=== PATIENT | male | born 1935 | race African-American/Black ===

== ENCOUNTER → 2017-11-05 | Outpatient (CLI) | payer MEDICARE, MEDICAID ==
--- NOTE | 2017-11-05 15:48 | RADIOLOGY REPORT (SQ) ---
EXAM DESCRIPTION: MRI HEAD WITHOUT COMPLETED DATE/TIME: 11/05/2017 2:26 pm REASON FOR STUDY: R41.1 ANTEROGRADE AMNESIA N18.3 CHRONIC KIDNEY DISEASE, STAGE 3 (MODERATE) R41.1 ANTEROGRADE AMNESIA N18.3 CHRONIC KIDNEY DISEASE, STAGE 3 (MODERATE) COMPARISON: 2013 TECHNIQUE: Multiplanar imaging includes non-contrasted T1, T2, FLAIR, and diffusion with ADC map seq uences. Heme sensitive sequence. Images stored on PACS. LIMITATIONS: None. FINDINGS: ANATOMY: No anomalies. Normal vascular flow voids. Pituitary fossa normal. CSF SPACES: Atrophy induced prominence of ventricles and CSF spaces. CEREBRUM: High signal intensity lesions scattered throughout the white matter on FLAIR imaging with d istribution suggesting micro-vascular ischemic changes. No evidence of hemorrhage, mass, or extraaxi al fluid collection. Chronic left temporal arachnoid cyst. POSTERIOR FOSSA: No signal alteration. No hemorrhage. No edema, masses or mass effect. Internal davin tory canals, cerebello-pontine angles, mastoids normal. DIFFUSION IMAGING: Negative for acute or sub-acute infarction. ORBITS: No masses. Globes normal. PARANASAL SINUSES: No fluid levels. Mucosa normal. OTHER: No other significant finding. IMPRESSION: ATROPHY AND CHRONIC MICRO-VASCULAR ISCHEMIC CHANGES. Chronic left temporal arachnoid cy sts stable. OTHERWISE NORMAL MRI OF THE BRAIN WITHOUT INTRAVENOUS GADOLINIUM CONTRAST. EVIDENCE OF ACUTE STROKE: NO. TECHNICAL DOCUMENTATION: JOB ID: [id number]- All Rights Reserved Reading location - IP/workstation name: [email or web address]
--- NOTE | 2017-11-05 15:55 | RADIOLOGY REPORT (SQ) ---
EXAM DESCRIPTION: U/S RETROPERITON (RENAL/AORTA) COMPLETED DATE/TIME: 11/05/2017 2:52 pm REASON FOR STUDY: R41.1 ANTEROGRADE AMNESIA N18.3 CHRONIC KIDNEY DISEASE, STAGE 3 (MODERATE) R41.1 ANTEROGRADE AMNESIA N18.3 CHRONIC KIDNEY DISEASE, STAGE 3 (MODERATE) COMPARISON: None. TECHNIQUE: Dynamic and static grayscale images acquired of the kidneys and bladder and recorded on P ACS. Additional selected color Doppler and spectral images recorded. LIMITATIONS: None. FINDINGS: RIGHT KIDNEY: 7 cm in length with normal cortical thickness and echogenicity. No solid or suspicious masses. No hydronephrosis. No calcifications. LEFT KIDNEY: 8.4 cm in length with normal cortical thickness and echogenicity. No solid or suspiciou s masses. No hydronephrosis. No calcifications. BLADDER: No masses. OTHER FINDINGS: No other significant finding. IMPRESSION: No hydronephrosis TECHNICAL DOCUMENTATION: JOB ID: [id number] [employer] All Rights Reserved Reading location - IP/workstation name: [email or web address]
== END ==
LOC: RAD 14:34
PROVIDERS: ATTEND Internal Medicine
DX: G31.9 Degenerative disease of nervous system, unspecified (principal); G93.0 Cerebral cysts; R41.1 Anterograde amnesia; N18.3 Chronic kidney disease, stage 3 (moderate)
CPT/HCPCS: 70551; 76770

== ENCOUNTER 2018-01-13 12:23 | Inpatient (IN) | payer MEDICARE, MEDICAID ==
[2018-01-13 13:09] LABS: INTERNATIONAL RATION (INR) 0.96; PROTHROMBIN TIME 13.3 SEC (11.4-15.4)
[2018-01-13 13:10] LABS: ABSOLUTE EOSINOPHILS # (AUTO) 0.2 10^3/uL (0.0-0.6); ABSOLUTE LYMPHOCYTES (AUTO) 2.1 10^3/uL (0.5-4.7); ABSOLUTE MONOCYTES (AUTO) 0.8 10^3/uL (0.1-1.4); ABSOLUTE NEUT (AUTO) 3.5 10^3/uL (1.7-8.2); BASOPHILS % (AUTO) 0.7 % (0-2); EOSINOPHILS % (AUTO) 2.7 % (0-6); HEMATOCRIT 40.1 % (37.9-51.0); HEMOGLOBIN 13.1 g/dL (13.5-17.0); LYMPHOCYTES % (AUTO) 31.2 % (13-45); MEAN CORPUSCULAR HEMOGLOBIN 23.9 pg (27.0-33.4); MEAN CORPUSCULAR HGB CONC 32.5 g/dL (32.0-36.0); MEAN CORPUSCULAR VOLUME 74 fl (80-97); MONOCYTES % (AUTO) 11.9 % (3-13); PARTIAL THROMBOPLASTIN TIME 35.5 SEC (23.5-35.8); PLATELET COUNT 219 10^3/uL (150-450); RED BLOOD COUNT 5.46 10^6/uL (4.35-5.55); RED CELL DISTRIBUTION WIDTH 14.3 % (11.5-14.0); SEGMENTED NEUTROPHILS % (AUTO) 53.5 % (42-78); TOTAL CELLS COUNTED % (AUTO) 100 %; WHITE BLOOD COUNT 6.6 10^3/uL (4.0-10.5)
[2018-01-13 13:31] LABS: ALANINE AMINOTRANSFERASE 15 U/L (21-72); ALBUMIN 4.2 g/dL (3.5-5.0); ALKALINE PHOSPHATASE 80 U/L (38-126); ANION GAP 14 (5-19); ASPARTATE AMINO TRANSFERASE 33 U/L (17-59); BILIRUBIN,DIRECT 0.2 mg/dL (0.0-0.4); BILIRUBIN,TOTAL 0.4 mg/dL (0.2-1.3); BLOOD UREA NITROGEN 23 mg/dL (7-20); CALCIUM 9.8 mg/dL (8.4-10.2); CARBON DIOXIDE 30 mmol/L (22-30); CHLORIDE 95 mmol/L (98-107); CREATINE KINASE 42 U/L (55-170); GLUCOSE 105 mg/dL (75-110); POTASSIUM 4.1 mmol/L (3.6-5.0); SODIUM 138.6 mmol/L (137-145); TOTAL PROTEIN 8.5 g/dL (6.3-8.2)
--- NOTE | 2018-01-13 13:33 | RADIOLOGY REPORT (SQ) ---
EXAM DESCRIPTION: CHEST SINGLE VIEW COMPLETED DATE/TIME: 01/13/2018 1:16 pm REASON FOR STUDY: stroke s/s COMPARISON: 03/21/2013 EXAM PARAMETERS: NUMBER OF VIEWS: One view. TECHNIQUE: Single frontal radiographic view of the chest acquired. RADIATION DOSE: NA LIMITATIONS: None. FINDINGS: LUNGS AND PLEURA: No opacities, masses or pneumothorax. No pleural effusion. MEDIASTINUM AND HILAR STRUCTURES: No masses. Contour normal. HEART AND VASCULAR STRUCTURES: Heart normal in size. Normal vasculature. BONES: No acute findings. HARDWARE: None in the chest. OTHER: No other significant finding. IMPRESSION: NO ACUTE RADIOGRAPHIC FINDING IN THE CHEST. TECHNICAL DOCUMENTATION: JOB ID: [id number] [employer] All Rights Reserved Reading location - IP/workstation name: [email or web address]
--- NOTE | 2018-01-13 13:39 | RADIOLOGY REPORT (SQ) ---
EXAM DESCRIPTION: CT HEAD WITHOUT COMPLETED DATE/TIME: 01/13/2018 1:26 pm REASON FOR STUDY: stroke s/s COMPARISON: MR 11/05/2017 TECHNIQUE: Axial images acquired through the brain without intravenous contrast. Images reviewed wi th bone, brain and subdural windows. Additional sagittal and coronal reconstructions were generated. Images stored on PACS. All CT scanners at this facility use dose modulation, iterative reconstruction, and/or weight based d osing when appropriate to reduce radiation dose to as low as reasonably achievable (ALARA). [facility]: Dose Right [facility]: CareDose [facility]: Dose Right [facility]: Teradose 4D [facility]: Smart [employer] RADIATION DOSE: CT Rad equipment meets quality standard of care and radiation dose reduction techniq ues were employed. CTDIvol: 48.7 mGy. DLP: 1054 mGy-cm. mGy. LIMITATIONS: None. FINDINGS: VENTRICLES: Prominent ventricles secondary to involutional atrophy. CEREBRUM: No masses. No hemorrhage. No midline shift. No evidence for acute infarction. Small doris chnoid cyst in the left middle cranial fossa. Few scattered areas of low density in the white matter most likely chronic small vessel ischemic changes. CEREBELLUM: No masses. No hemorrhage. No alteration of density. No evidence for acute infarction. EXTRAAXIAL SPACES: No fluid collections. No masses. ORBITS AND GLOBE: No intra- or extraconal masses. Normal contour of globe without masses. CALVARIUM: Craniotomy changes on the right. PARANASAL SINUSES: No fluid or mucosal thickening. SOFT TISSUES: No mass or hematoma. OTHER: No other significant finding. IMPRESSION: Involutional changes of aging with chronic microvascular ischemia. Subarachnoid cyst in the left middle cranial fossa is unchanged. No acute intracranial imaging findings. EVIDENCE OF ACUTE STROKE: NO. COMMENT: Quality ID # 436: Final reports with documentation of one or more dose reduction techniques (e.g., Automated exposure control, adjustment of the mA and/or kV according to patient size, use of iterative reconstruction technique) TECHNICAL DOCUMENTATION: JOB ID: [id number] [employer]- All Rights Reserved Reading location - IP/workstation name: [email or web address]
[2018-01-13 13:44] LABS: CREATINE KINASE MB 0.35 ng/mL (<4.55); TROPONIN I 0.022 ng/mL
--- NOTE | 2018-01-13 13:57 | ER Document Report ---
ED General - General Chief Complaint: Altered Mental Status Stated Complaint: ALTERED MENTAL STATUS Time Seen by Provider: 01/13/18 13:06 Notes: 82-year-old male to the emergency department for evaluation of altered mental status. Patient was sent over here from his primary care doctor's office. Patient followed by Dr. Bowser. Was reportedly altered. His brother took him to the doctor and continues to act weird according to the brother. Normally he is alert and with it no acute distress but today he is complaining of being cold, abdominal pain and excessively confused. Currently patient lives alone. TRAVEL OUTSIDE OF THE [place] IN LAST 30 DAYS: No - HPI Similar symptoms previously: No Recently seen / treated by doctor: Yes - Seen today sent here from clinic - Related Data Allergies/Adverse Reactions: No Known Allergies Allergy (Unverified 05/07/11 10:18) Past Medical History - General Information source: Relative, Dr. Cortez, COUNTS INCLUDE 234 BEDS AT THE [facility] Records - Social History Smoking Status: Unknown if Ever Smoked Frequency of alcohol use: None Drug Abuse: None Lives with: Alone Family History: Reviewed & Not Pertinent Patient has suicidal ideation: No Patient has homicidal ideation: No - Past Medical History Cardiac Medical History: Reports: Hx Hypercholesterolemia, Hx Hypertension - x 8 years Denies: Hx Coronary Artery Disease, Hx Heart Attack Pulmonary Medical History: Reports: Hx Pneumonia - 20 years ago Denies: Hx Asthma, Hx Bronchitis, Hx COPD Neurological Medical History: Denies: Hx Cerebrovascular Accident, Hx Seizures Renal/ Medical History: Denies: Hx Peritoneal Dialysis Musculoskeletal Medical History: Denies Hx Arthritis Past Surgical History: Denies: Hx Pacemaker - Immunizations Hx Diphtheria, Pertussis, Tetanus Vaccination: Yes - 2003 Hx Pneumococcal Vaccination: 02/25/10 Review of Systems - Review of Systems Notes: Constitutional: denies: Chills, Diaphoresis, Fever, Malaise, Weakness EENT: denies: Eye discharge, Blurred vision, Tearing, Double vision, Nose congestion, Nose discharge, Throat swelling, Mouth pain Cardiovascular: denies: Palpitations, Heart racing, Orthopnea, Dyspnea, Chest pain Respiratory: denies: Cough, Hurts to breathe, Wheezing, Shortness of breath Gastrointestinal: denies: Diarrhea, Nausea, Vomiting, Black stools, bright red blood in stool. Does complain of some lower right-sided abdominal pain above the bladder area Genitourinary: denies: Burning, Dysuria, Discharge, Frequency, Flank pain, Hematuria Musculoskeletal: denies: Joint pain, Joint swelling, Muscle pain, Muscle stiffness, back pain Hematologic/Lymphatic: denies: Anemia, Easy bleeding, Easy bruising, Blood clots Neurological/Psychological: No head trauma. No loss of consciousness. Reported confusion by observation from his brother who knows him quite well. Skin: No lesions, no masses, no skin breakdown, no abscesses Physical Exam - Vital signs Vitals: Pulse Ox 98 01/13/18 12:46 Interpretation: Normal - General General appearance: Appears well, Alert - HEENT Head: Normocephalic, Atraumatic Eyes: Normal Pupils: PERRL Mucous membranes: Dry - Respiratory Respiratory status: No respiratory distress Chest status: Nontender Breath sounds: Normal Chest palpation: Normal - Cardiovascular Rhythm: Regular Heart sounds: Normal auscultation Murmur: No - Abdominal Inspection: Normal Distension: No distension Bowel sounds: Normal Tenderness: Tender - There is some mild tenderness to palpation in the right lower suprapubic area where there appears to be a reducible inguinal hernia. Is no guarding or rebound. Organomegaly: No organomegaly - Back Back: Normal, Nontender - Extremities General upper extremity: Normal inspection, Nontender, Normal color, Normal ROM , Normal temperature General lower extremity: Normal inspection, Nontender, Normal color, Normal ROM , Normal temperature, Normal weight bearing. No: Mookie's sign - Neurological Neuro grossly intact: Yes Cognition: Confused, Short term memory loss Orientation: Disoriented to person, Disoriented to time Aleksandr Coma Scale Eye Opening: Spontaneous Huger Coma Scale Verbal: Confused Aleksandr Coma Scale Motor: Obeys Commands Aleksandr Coma Scale Total: 14 Speech: Normal Cranial nerves: Normal Motor strength normal: LUE, RUE, LLE, RLE Sensory: Normal - Psychological Associated symptoms: Normal mood, Agitated, Confused - Skin Skin Temperature: Warm Skin Moisture: Dry Skin Color: Normal Course - Re-evaluation Re-evalutation: 01/13/18 15:37 Laboratory 01/13/18 01/13/18 01/13/18 12:37 12:37 12:37 WBC 6.6 RBC 5.46 Hgb 13.1 L Hct 40.1 MCV 74 L MCH 23.9 L MCHC 32.5 RDW 14.3 H Plt Count 219 Seg Neutrophils % 53.5 Lymphocytes % 31.2 Monocytes % 11.9 Eosinophils % 2.7 Basophils % 0.7 Absolute Neutrophils 3.5 Absolute Lymphocytes 2.1 Absolute Monocytes 0.8 Absolute Eosinophils 0.2 Absolute Basophils 0.0 PT 13.3 INR 0.96 APTT 35.5 Sodium 138.6 Potassium 4.1 Chloride 95 L Carbon Dioxide 30 Anion Gap 14 BUN 23 H Creatinine 1.73 H Est GFR ( Amer) 46 L Est GFR (Non-Af Amer) 38 L Glucose 105 POC Glucose Lactic Acid Calcium 9.8 Total Bilirubin 0.4 Direct Bilirubin 0.2 Neonat Total Bilirubin Not Reportable Neonat Direct Bilirubin Not Reportable Neonat Indirect Bili Not Reportable AST 33 ALT 15 L Alkaline Phosphatase 80 Creatine Kinase 42 L CK-MB (CK-2) Troponin I Total Protein 8.5 H Albumin 4.2 Urine Color Urine Appearance Urine pH Ur Specific [place] Urine Protein Urine Glucose (UA) Urine Ketones Urine Blood Urine Nitrite Urine Bilirubin Urine Urobilinogen Ur Leukocyte Esterase Urine WBC (Auto) Urine RBC (Auto) Urine Ascorbic Acid 01/13/18 01/13/18 01/13/18 12:37 12:37 13:00 WBC RBC Hgb Hct MCV MCH MCHC RDW Plt Count Seg Neutrophils % Lymphocytes % Monocytes % Eosinophils % Basophils % Absolute Neutrophils Absolute Lymphocytes Absolute Monocytes Absolute Eosinophils Absolute Basophils PT INR APTT Sodium Potassium Chloride Carbon Dioxide Anion Gap BUN Creatinine Est GFR ( Amer) Est GFR (Non-Af Amer) Glucose POC Glucose 92 Lactic Acid 1.9 Calcium Total Bilirubin Direct Bilirubin Neonat Total Bilirubin Neonat Direct Bilirubin Neonat Indirect Bili AST ALT Alkaline Phosphatase Creatine Kinase CK-MB (CK-2) 0.35 Troponin I 0.022 Total Protein Albumin Urine Color Urine Appearance Urine pH Ur Specific [place] Urine Protein Urine Glucose (UA) Urine Ketones Urine Blood Urine Nitrite Urine Bilirubin Urine Urobilinogen Ur Leukocyte Esterase Urine WBC (Auto) Urine RBC (Auto) Urine Ascorbic Acid 01/13/18 14:00 WBC RBC Hgb Hct MCV MCH MCHC RDW Plt Count Seg Neutrophils % Lymphocytes % Monocytes % Eosinophils % Basophils % Absolute Neutrophils Absolute Lymphocytes Absolute Monocytes Absolute Eosinophils Absolute Basophils PT INR APTT Sodium Potassium Chloride Carbon Dioxide Anion Gap BUN Creatinine Est GFR ( Amer) Est GFR (Non-Af Amer) Glucose POC Glucose Lactic Acid Calcium Total Bilirubin Direct Bilirubin Neonat Total Bilirubin Neonat Direct Bilirubin Neonat Indirect Bili AST ALT Alkaline Phosphatase Creatine Kinase CK-MB (CK-2) Troponin I Total Protein Albumin Urine Color YELLOW Urine Appearance CLEAR Urine pH 7.0 Ur Specific [place] 1.017 Urine Protein NEGATIVE Urine Glucose (UA) NEGATIVE Urine Ketones NEGATIVE Urine Blood NEGATIVE Urine Nitrite NEGATIVE Urine Bilirubin NEGATIVE Urine Urobilinogen 2.0 H Ur Leukocyte Esterase NEGATIVE Urine WBC (Auto) 0 Urine RBC (Auto) 0 Urine Ascorbic Acid 40 H Chest X-Ray 01/13/18 12:46 IMPRESSION: NO ACUTE RADIOGRAPHIC FINDING IN THE CHEST. Head CT 01/13/18 12:46 IMPRESSION: Involutional changes of aging with chronic microvascular ischemia. Subarachnoid cyst in the left middle cranial fossa is unchanged. No acute intracranial imaging findings. EVIDENCE OF ACUTE STROKE: NO. Abdomen/Pelvis CT 01/13/18 14:14 IMPRESSION: 1. Aortic aneurysms as described. 2. Cannot exclude mild pancreatitis. Correlate clinically. This is a subtle finding. 3. No urinary pathology is seen. Patient has what appears to be some chronic aortic aneurysms but no other significant findings. His EKG shows some atrial bigeminy. Opponent is unremarkable. Will order MRI but patient will still need to be admitted. I did consult with Dr. Bowser who is his primary care doctor. He will admit patient for follow-up troponin as his troponin currently is 0.022. Second troponin has been ordered. MRI ordered. Dr. Bowser to assume care. - Vital Signs Vital signs: Temp Pulse Resp BP Pulse Ox 98 01/13/18 12:46 - Laboratory Result Diagrams: 01/13/18 12:37 01/13/18 12:37 Laboratory results interpreted by me: 01/13/18 01/13/18 01/13/18 12:37 12:37 14:00 Hgb 13.1 L MCV 74 L MCH 23.9 L RDW 14.3 H Chloride 95 L BUN 23 H Creatinine 1.73 H Est GFR ( Amer) 46 L Est GFR (Non-Af Amer) 38 L ALT 15 L Creatine Kinase 42 L Total Protein 8.5 H Urine Urobilinogen 2.0 H Urine Ascorbic Acid 40 H Discharge - Discharge Clinical Impression: Right inguinal hernia Altered mental status, unspecified Qualifiers: Altered mental status type: unspecified Qualified Code(s): R41.82 - Altered mental status, unspecified Condition: Good Disposition: ADMITTED INPATIENT Admitting Provider: Tamanna Unit Admitted: [facility] Referrals: ZENOBIA BOWSER MD [Primary Care Provider] - Follow up as needed
--- NOTE | 2018-01-13 14:58 | RADIOLOGY REPORT (SQ) ---
EXAM DESCRIPTION: CT ABD/PELVIS NO ORAL OR IV COMPLETED DATE/TIME: 01/13/2018 2:39 pm REASON FOR STUDY: abd pain COMPARISON: None. TECHNIQUE: CT scan of the abdomen and pelvis performed without intravenous or oral contrast. Images reviewed with lung, soft tissue, and bone windows. Reconstructed coronal and sagittal MPR images revi ewed. All images stored on PACS. All CT scanners at this facility use dose modulation, iterative reconstruction, and/or weight based d osing when appropriate to reduce radiation dose to as low as reasonably achievable (ALARA). [facility]: Dose Right [facility]: CareDose [facility]: Dose Right [facility]: Teradose 4D [facility]: Smart [employer] RADIATION DOSE: CT Rad equipment meets quality standard of care and radiation dose reduction techniq ues were employed. CTDIvol: 7.5 mGy. DLP: 438 mGy-cm.mGy. LIMITATIONS: None. FINDINGS: LOWER CHEST: There is mild aneurysm dilatation of the ascending aorta with maximum diamete r 42 mm. There is mild aneurysmal dilatation of the descending thoracic aorta with a maximum diamete r of 32 mm. NON-CONTRASTED LIVER, SPLEEN, ADRENALS: Evaluation limited by lack of IV contrast. No identified sign ificant masses. PANCREAS: Cannot exclude mild edema in the pancreas. GALLBLADDER: No identified stones by CT criteria. No inflammatory changes to suggest cholecystitis. RIGHT KIDNEY AND URETER: No suspicious masses. Assessment limited by lack of IV contrast. No signif icant calcifications. No hydronephrosis or hydroureter. LEFT KIDNEY AND URETER: No suspicious masses. Assessment limited by lack of IV contrast. No signifi cant calcifications. No hydronephrosis or hydroureter. AORTA AND RETROPERITONEUM: Aneurysmal dilatation of the upper abdominal aorta with a maximum diameter of 35 mm on image 34. Aneurysm of the distal abdominal aorta with a maximum diameter of 40 mm. Thi s is on image 57 series 2. BOWEL AND PERITONEAL CAVITY: No obvious masses or inflammatory changes. No free fluid. APPENDIX: Not identified. PELVIS, BLADDER, AND ABDOMINAL WALL:No abnormal masses. No free fluid. Bladder normal. BONES: No significant findings. OTHER: No other significant finding. IMPRESSION: 1. Aortic aneurysms as described. 2. Cannot exclude mild pancreatitis. Correlate clinically. This is a subtle finding. 3. No urinary pathology is seen. COMMENT: Quality ID # 436: Final reports with documentation of one or more dose reduction techniques (e.g., Automated exposure control, adjustment of the mA and/or kV according to patient size, use of iterative reconstruction technique) TECHNICAL DOCUMENTATION: JOB ID: [id number] [employer]- All Rights Reserved Reading location - IP/workstation name: [email or web address]
[2018-01-13 15:06] LABS: APPEARANCE,URINE CLEAR; BILIRUBIN,URINE NEGATIVE (NEGATIVE); COLOR,URINE YELLOW; GLUCOSE, URINE NEGATIVE (NEGATIVE); KETONES,URINE NEGATIVE (NEGATIVE); LEUKOCYTE ESTERASE,URINE NEGATIVE (NEGATIVE); NITRITE,URINE NEGATIVE (NEGATIVE); PROTEIN,URINE NEGATIVE (NEGATIVE); URINE SPECIFIC GRAVITY 1.017
[2018-01-13] MEDS ORDERED: NORMAL SALINE 1000 ML 1,000 ML IV ONE (15:29)
--- NOTE | 2018-01-13 17:10 | RADIOLOGY REPORT (SQ) ---
EXAM DESCRIPTION: MRI HEAD WITHOUT COMPLETED DATE/TIME: 01/13/2018 4:56 pm REASON FOR STUDY: altered mental status COMPARISON: Brain CT scan dated 01/13/2018 and MRI of the brain dated October 2017 TECHNIQUE: Multiplanar imaging includes non-contrasted T1, T2, FLAIR, and diffusion with ADC map seq uences. Images stored on PACS. LIMITATIONS: None. FINDINGS: ANATOMY: No anomalies. Normal vascular flow voids. Pituitary fossa normal. CSF SPACES: Atrophy induced prominence of ventricles and CSF spaces. CEREBRUM: High signal intensity lesions scattered throughout the white matter on FLAIR imaging with d istribution suggesting micro-vascular ischemic changes. No evidence of hemorrhage or mass. The prev iously described arachnoid cyst at the level of the middle cranial fossa on the left is stable. POSTERIOR FOSSA: No signal alteration. No hemorrhage. No edema, masses or mass effect. Internal davin tory canals, cerebello-pontine angles, mastoids normal. DIFFUSION IMAGING: Negative for acute or sub-acute infarction. ORBITS: No masses. Globes normal. PARANASAL SINUSES: No fluid levels. Mucosa normal. OTHER: No other significant finding. IMPRESSION: ATROPHY AND CHRONIC MICRO-VASCULAR ISCHEMIC CHANGES. The previously described arachnoid cysts at the level of the middle cranial fossa on the left is stable. Other findings as noted above EVIDENCE OF ACUTE STROKE: NO. TECHNICAL DOCUMENTATION: JOB ID: [id number] [employer]- All Rights Reserved Reading location - IP/workstation name: [email or web address]
[2018-01-13 17:24] LABS: URINE AMPHETAMINES SCREEN NEGATIVE; URINE BARBITURATES SCREEN NEGATIVE; URINE BENZODIAZEPINES SCREEN NEGATIVE; URINE COCAINE SCREEN NEGATIVE; URINE MARIJUANA (THC) SCREEN NEGATIVE; URINE METHADONE SCREEN NEGATIVE; URINE PHENCYCLIDINE SCREEN NEGATIVE
[2018-01-13] MEDS ORDERED: ASPIRIN 81 MG TABLET, CHEWABLE PO ONE (20:09)
--- NOTE | 2018-01-13 22:00 | EKG REPORT ---
SEVERITY:- ABNORMAL ECG - SINUS RHYTHM SUPRAVENTRICULAR BIGEMINY LOW VOLTAGE IN FRONTAL LEADS BORDERLINE T ABNORMALITIES, ANT-LAT LEADS : Confirmed by: Brianda Reid MD 13-Jan-2018 21:59:54
[2018-01-13] MEDS: NORMAL SALINE 1000 ML 1,000 ML IV PRN (22:35)
[2018-01-13 22:46] LABS: INTERNATIONAL RATION (INR) 1.02; PROTHROMBIN TIME 13.9 SEC (11.4-15.4)
[2018-01-13 22:47] LABS: PARTIAL THROMBOPLASTIN TIME 37.6 SEC (23.5-35.8)
[2018-01-13 23:01] LABS: AMYLASE 174 U/L (30-110); CREATINE KINASE 48 U/L (55-170)
[2018-01-13 23:12] LABS: CREATINE KINASE MB 0.55 ng/mL (<4.55); TROPONIN I 0.032 ng/mL
[2018-01-13 23:16] LABS: FREE T4 (FREE THYROXINE) 1.07 ng/dL (0.78-2.19)
[2018-01-13] MEDS: ACYCLOVIR SODIUM 500 MG in NORMAL SALINE 100 ML IV SCH (23:21)
[2018-01-13 23:30] LABS: THYROID STIMULATING HORMONE 1.22 uIU/mL (0.47-4.68)
[2018-01-14] MEDS: ACYCLOVIR SODIUM 500 MG in NORMAL SALINE 100 ML IV SCH ×3 (05:43→21:37)
[2018-01-14] MEDS ORDERED: LORAZEPAM INJ 2 MG/1 ML VIAL ONE (09:18)
[2018-01-14] MEDS ORDERED: LORAZEPAM INJ 2 MG/1 ML VIAL IV PRN (09:20)
[2018-01-14 10:40] LABS: ABSOLUTE EOSINOPHILS # (AUTO) 0.2 10^3/uL (0.0-0.6); ABSOLUTE LYMPHOCYTES (AUTO) 1.1 10^3/uL (0.5-4.7); ABSOLUTE MONOCYTES (AUTO) 0.4 10^3/uL (0.1-1.4); ABSOLUTE NEUT (AUTO) 2.8 10^3/uL (1.7-8.2); BASOPHILS % (AUTO) 0.9 % (0-2); EOSINOPHILS % (AUTO) 4.1 % (0-6); HEMATOCRIT 39.3 % (37.9-51.0); HEMOGLOBIN 12.8 g/dL (13.5-17.0); LYMPHOCYTES % (AUTO) 25.2 % (13-45); MEAN CORPUSCULAR HEMOGLOBIN 23.9 pg (27.0-33.4); MEAN CORPUSCULAR HGB CONC 32.6 g/dL (32.0-36.0); MEAN CORPUSCULAR VOLUME 73 fl (80-97); MONOCYTES % (AUTO) 9.6 % (3-13); PLATELET COUNT 197 10^3/uL (150-450); RED BLOOD COUNT 5.37 10^6/uL (4.35-5.55); RED CELL DISTRIBUTION WIDTH 14.5 % (11.5-14.0); SEGMENTED NEUTROPHILS % (AUTO) 60.2 % (42-78); TOTAL CELLS COUNTED % (AUTO) 100 %; WHITE BLOOD COUNT 4.6 10^3/uL (4.0-10.5)
--- NOTE | 2018-01-14 10:57 | RADIOLOGY REPORT (SQ) ---
EXAM DESCRIPTION: LUMBAR PUNCTURE; FLUORO/NEEDLE PLACEMENT COMPLETED DATE/TIME: 01/14/2018 10:27 am REASON FOR STUDY: unspecifed encephalopathy ; LUMBAR PUNCTURE COMPARISON: MRI BRAIN 01/13/2018 CT BRAIN 01/13/2018 FLUOROSCOPY TIME: 36 seconds 2 digital radiographic images saved to PACS. TECHNIQUE: Fluoroscopic guided lumbar puncture. LIMITATIONS: None. PROCEDURE: After written consent and assessment were obtained, the patient was brought into the fluo roscopy room and placed prone on the table. The patient's lower back was prepped in a sterile fashio n and an entry site was selected under live fluoroscopic guidance. The entry site was anesthetized wi th 5 mL of 1% lidocaine. A 22 gauge needle was advanced through the skin and into the thecal sac at t he left paracentral L2-3 level. After approximately 8 ml was drained, the needle was removed and a s terile bandage was placed of the site. Specimens were sent to the lab for testing. A fluoroscopic s pot image was saved to PACS confirming level access. FINDINGS: Clear CSF opening pressure 12 cm of water. CSF studies are pending IMPRESSION: Lumbar puncture under fluoroscopy. No immediate complication. COMMENT: Patient medication list reviewed: Yes- Quality ID# 130:Eligible professional attests to doc umenting in the medical record they obtained, updated, or reviewed the patient's current medications. . Quality ID 145: Final reports for procedures using fluoroscopy that document radiation exposure nitin pato, or exposure time and number of fluorographic images (if radiation exposure indices are not avail able) TECHNICAL DOCUMENTATION: JOB ID: [id number] [employer]- All Rights Reserved Reading location - IP/workstation name: [email or web address]
--- NOTE | 2018-01-14 10:57 | RADIOLOGY REPORT (SQ) ---
EXAM DESCRIPTION: LUMBAR PUNCTURE; FLUORO/NEEDLE PLACEMENT COMPLETED DATE/TIME: 01/14/2018 10:27 am REASON FOR STUDY: unspecifed encephalopathy ; LUMBAR PUNCTURE COMPARISON: MRI BRAIN 01/13/2018 CT BRAIN 01/13/2018 FLUOROSCOPY TIME: 36 seconds 2 digital radiographic images saved to PACS. TECHNIQUE: Fluoroscopic guided lumbar puncture. LIMITATIONS: None. PROCEDURE: After written consent and assessment were obtained, the patient was brought into the fluo roscopy room and placed prone on the table. The patient's lower back was prepped in a sterile fashio n and an entry site was selected under live fluoroscopic guidance. The entry site was anesthetized wi th 5 mL of 1% lidocaine. A 22 gauge needle was advanced through the skin and into the thecal sac at t he left paracentral L2-3 level. After approximately 8 ml was drained, the needle was removed and a s terile bandage was placed of the site. Specimens were sent to the lab for testing. A fluoroscopic s pot image was saved to PACS confirming level access. FINDINGS: Clear CSF opening pressure 12 cm of water. CSF studies are pending IMPRESSION: Lumbar puncture under fluoroscopy. No immediate complication. COMMENT: Patient medication list reviewed: Yes- Quality ID# 130:Eligible professional attests to doc umenting in the medical record they obtained, updated, or reviewed the patient's current medications. . Quality ID 145: Final reports for procedures using fluoroscopy that document radiation exposure nitin pato, or exposure time and number of fluorographic images (if radiation exposure indices are not avail able) TECHNICAL DOCUMENTATION: JOB ID: [id number] [employer]- All Rights Reserved Reading location - IP/workstation name: [email or web address]
[2018-01-14 11:00] LABS: ANION GAP 11 (5-19); BLOOD UREA NITROGEN 20 mg/dL (7-20); CALCIUM 9.5 mg/dL (8.4-10.2); CARBON DIOXIDE 29 mmol/L (22-30); CHLORIDE 102 mmol/L (98-107); GLUCOSE 114 mg/dL (75-110); POTASSIUM 4.6 mmol/L (3.6-5.0); SODIUM 142.1 mmol/L (137-145)
[2018-01-14 11:08] LABS: CREATINE KINASE MB 0.59 ng/mL (<4.55); TROPONIN I 0.022 ng/mL
[2018-01-14 11:09] LABS: GLUCOSE,CSF 66 mg/dL (40-70); PROTEIN,CSF 66 mg/dL (12-60)
[2018-01-14 11:14] LABS: CSF TUBE NUMBER 4
[2018-01-14 11:15] LABS: COLOR TUBE 1 COLORLESS
[2018-01-14 11:16] LABS: COLOR TUBE 4 STRAW
[2018-01-14 11:17] LABS: APPEARANCE TUBE 1 CLEAR; APPEARANCE TUBE 2 SLIGHTLY HAZY; APPEARANCE TUBE 3 SLIGHTLY HAZY; APPEARANCE TUBE 4 CLEAR; CSF TOTAL VOLUME 7.7 CC; VOLUME TUBE 1 1.8 CC; VOLUME TUBE 4 2.9 CC
[2018-01-14 11:19] LABS: WHITE BLOOD CELL,CSF 3 /uL (0-5)
[2018-01-14 11:24] LABS: RED BLOOD CELL,CSF 1285 /uL (0-10)
[2018-01-14 11:25] LABS: APPEARANCE TUBE 1 CLEAR; APPEARANCE TUBE 2 SLIGHTLY HAZY; APPEARANCE TUBE 3 SLIGHTLY HAZY; APPEARANCE TUBE 4 CLEAR; COLOR TUBE 1 COLORLESS; COLOR TUBE 4 STRAW; CSF TUBE NUMBER 1; VOLUME TUBE 1 1.8 CC
[2018-01-14 11:26] LABS: CSF TOTAL VOLUME 7.7 CC; RED BLOOD CELL,CSF 554 /uL (0-10); VOLUME TUBE 4 2.9 CC
[2018-01-14 11:27] LABS: WHITE BLOOD CELL,CSF 3 /uL (0-5)
--- NOTE | 2018-01-14 13:25 | Physician Advisory Note ---
Physician Advisor ProgressNote .: [facility], I have reviewed the medical record for this patient. Physician Advisor Statement: ED dr stated pt was "confused", "acting weird" per brother, "excessively confused" (all rather vague terms), but then also noted agitation, "short term memory loss" & "disoriented to person & time" (although did not state whether that is pt's baseline or not). Total GCS 14 initially. Nursing notes indicate pt initially opn 01/13 unable to follow commands, had "noticeable Lt facial droop/Lt-sided deficits", was not able to state his age or the month, but at 19:17, was "alert now & able to follow commands". 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 Since arrival, pt w/no fevers, HR 60s, but RR ranging from 24 to 6 to 29. Please document explicitly: 1. The ways pt's mental status on was/is different from baseline dementia status - "[place] the picture" for reviewers who don't know pt. 2. specific type/likely cause of AMS, such as: "Acute delirium due to metabolic encephalopathy, suspect due to HSV meningitis/ " 3. whether or not the pt's wide variations in resp rate on 01/13 were concerning to attending, & suspected cause 4. ? "left hemiparesis, resolved, suspect due to "? - if this is accurate 5. Medical necessity: explain why pt can't safely be d/c'd later today to f/u in office in 1-2 days STatus: agree w/Inpt status, but need documentation of attg concerns (H&P not yet visible on chart) - as above. Thanks! CK
[2018-01-14] MEDS: NORMAL SALINE 1000 ML 1,000 ML IV PRN (17:39)
[2018-01-14 19:17] LABS: CREATINE KINASE MB 0.76 ng/mL (<4.55); TROPONIN I 0.023 ng/mL
--- NOTE | 2018-01-14 19:53 | PDOC H&P ---
History of Present Illness Admission Date/PCP: 01/13/18 16:16 ZENOBIA BOWSER MD History of Present Illness: SHY INGRAM is a 82 year old male, He has a history of chronic kidney disease stage III,, dementia, he came to the office today with his brother for evaluation of acute confusion, excessive somnolence. The brother stated that he had altered mental status, he called 911, EMS came to the house to evaluate him, he was evaluated by EMS staff and the brother was advised that the patient should see me in the office this morning.When I saw him in the office this morning, he was very confused, there was no eye contact, he would not answer question, during conversation he was slumped to somnolence I was not sure what is going on with him, I called the rescue squad to transfer to the emergency room for further evaluation.Initially in the emergency room, CT head was done, this was negative for any acute pathology subsequently MRI head without contrast was done, it demonstrated atrophy and chronic microvascular ischemic changes. There was signal intensity lesions scattered throughout the white matter on FLAIR imaging with distribution suggesting microvascular ischemic changes. No evidence of hemorrhage or mass also found was a arachnoid cyst at the level of the middle cranial fossa. 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 I do not suspect any bacterial meningitis in this patient I felt he will empirically be treated with IV acyclovir at 10 mg /kg body weight every 8 hours a lumbar puncture will be obtained the morning under fluoroscopy to confirm my suspicion, PCR for herpes simplex be ordered Past Medical History Cardiac Medical History: Reports: Hyperlipidema, Hypertension - x 8 years Pulmonary Medical History: Reports: Pneumonia - 20 years ago Musculoskeltal Medical History: Denies: Arthritis Hematology: Reports: Anemia - currently Social History Lives with: Alone Smoking Status: Former Smoker Frequency of Alcohol Use: None Hx Recreational Drug Use: No Drugs: None Hx Prescription Drug Abuse: No - Advance Directive Resuscitation Status: Full Code Family History Family History: Reviewed & Not Pertinent Parental Family History Reviewed: Yes Children Family History Reviewed: Yes Sibling(s) Family History Reviewed.: Yes Medication/Allergy Home Medications: Aspirin [Adult Low Dose Aspirin EC] 81 mg PO DAILY 01/14/18 Cetirizine HCl [Zyrtec 10 mg Tablet] 10 mg PO DAILY 01/14/18 Cyanocobalamin (Vitamin B-12) [Vitamin B-12 1000 mcg Tablet] 2,000 mcg PO DAILY 01/14/18 Ferrous Sulfate 324 mg PO DAILY 01/14/18 Fluticasone Propionate [Flonase Nasal [place] 50 Mcg/[place] 16 gm] 1 spray NASL DAILY 01/14/18 Furosemide [Lasix 40 mg Tablet] 40 mg PO DAILY 01/14/18 Hydrochlorothiazide [Hydrodiuril 50 mg Tablet] 50 mg PO DAILY 01/14/18 Memantine HCl/Donepezil HCl [Namzaric 28 mg-10 mg Capsule] 1 cap PO QPM Potassium Chloride [Klor-Con 10 Meq Capsule ER] 20 mg PO DAILY 01/14/18 Pravastatin Sodium [Pravachol] 40 mg PO QHS 01/14/18 Allergies/Adverse Reactions: No Known Allergies Allergy (Unverified 05/07/11 10:18) Review of Systems ROS unobtainable: Due to mental status Physical Exam Vital Signs: Temp Pulse Resp BP Pulse Ox 97.4 F 61 18 129/66 H 96 01/14/18 16:25 01/14/18 16:25 01/14/18 16:25 01/14/18 16:25 01/14/18 16:25 Intake & Output 01/13/18 01/14/18 01/15/18 06:59 06:59 06:59 Intake Total 1651 797 Output Total 200 200 Balance 1451 597 Weight 58.7 kg General appearance: PRESENT: other - Patient is very stuporous difficult to arouse Head exam: PRESENT: atraumatic, normocephalic Eye exam: PRESENT: PERRLA Ear exam: PRESENT: normal external ear exam Mouth exam: PRESENT: moist, tongue midline Neck exam: PRESENT: meningismus Respiratory exam: PRESENT: clear to auscultation khadijah Cardiovascular exam: PRESENT: +S1, +S2 GI/Abdominal exam: PRESENT: normal bowel sounds, soft Rectal exam: PRESENT: deferred Neurological exam: PRESENT: altered, CN II-XII grossly intact Results Laboratory Results: 01/14/18 10:24 01/14/18 10:24 01/13/18 01/13/18 01/13/18 22:07 22:07 22:07 WBC RBC Hgb Hct MCV MCH MCHC RDW Plt Count Seg Neutrophils % Lymphocytes % Monocytes % Eosinophils % Basophils % Absolute Neutrophils Absolute Lymphocytes Absolute Monocytes Absolute Eosinophils Absolute Basophils Sodium Potassium Chloride Carbon Dioxide Anion Gap BUN Creatinine Est GFR ( Amer) Est GFR (Non-Af Amer) Glucose Calcium Ammonia 17.8 Amylase 174 H TSH 1.22 Free T4 1.07 Fluid Tube Number CSF Volume CSF WBC CSF RBC CSF Color (1) CSF Appearance (1) CSF Color (2) CSF Appearance (2) CSF Color (3) CSF Appearance (3) CSF Color (4) CSF Appearance (4) CSF Glucose CSF Total Protein 01/14/18 01/14/18 01/14/18 10:10 10:10 10:10 WBC RBC Hgb Hct MCV MCH MCHC RDW Plt Count Seg Neutrophils % Lymphocytes % Monocytes % Eosinophils % Basophils % Absolute Neutrophils Absolute Lymphocytes Absolute Monocytes Absolute Eosinophils Absolute Basophils Sodium Potassium Chloride Carbon Dioxide Anion Gap BUN Creatinine Est GFR ( Amer) Est GFR (Non-Af Amer) Glucose Calcium Ammonia Amylase TSH Free T4 Fluid Tube Number 1 4 CSF Volume 7.7 7.7 CSF WBC 3 3 CSF RBC 554 1285 H CSF Color (1) COLORLESS COLORLESS CSF Appearance (1) CLEAR CLEAR CSF Color (2) CSF Appearance (2) SLIGHTLY HAZY SLIGHTLY HAZY CSF Color (3) CSF Appearance (3) SLIGHTLY HAZY SLIGHTLY HAZY CSF Color (4) STRAW STRAW CSF Appearance (4) CLEAR CLEAR CSF Glucose 66 CSF Total Protein 66 H 01/14/18 01/14/18 10:24 10:24 WBC 4.6 RBC 5.37 Hgb 12.8 L Hct 39.3 MCV 73 L MCH 23.9 L MCHC 32.6 RDW 14.5 H Plt Count 197 Seg Neutrophils % 60.2 Lymphocytes % 25.2 Monocytes % 9.6 Eosinophils % 4.1 Basophils % 0.9 Absolute Neutrophils 2.8 Absolute Lymphocytes 1.1 Absolute Monocytes 0.4 Absolute Eosinophils 0.2 Absolute Basophils 0.0 Sodium 142.1 Potassium 4.6 Chloride 102 Carbon Dioxide 29 Anion Gap 11 BUN 20 Creatinine 1.48 H Est GFR ( Amer) 55 L Est GFR (Non-Af Amer) 45 L Glucose 114 H Calcium 9.5 Ammonia Amylase TSH Free T4 Fluid Tube Number CSF Volume CSF WBC CSF RBC CSF Color (1) CSF Appearance (1) CSF Color (2) CSF Appearance (2) CSF Color (3) CSF Appearance (3) CSF Color (4) CSF Appearance (4) CSF Glucose CSF Total Protein 01/13/18 01/13/18 01/13/18 17:25 22:07 22:07 Creatine Kinase 48 L CK-MB (CK-2) 0.55 Troponin I 0.029 0.032 01/14/18 01/14/18 01/14/18 10:24 10:24 18:25 Creatine Kinase 50 L 49 L CK-MB (CK-2) 0.59 Troponin I 0.022 01/14/18 18:25 Creatine Kinase CK-MB (CK-2) 0.76 Troponin I 0.023 Impressions: Chest X-Ray 01/13/18 12:46 IMPRESSION: NO ACUTE RADIOGRAPHIC FINDING IN THE CHEST. Head CT 01/13/18 12:46 IMPRESSION: Involutional changes of aging with chronic microvascular ischemia. Subarachnoid cyst in the left middle cranial fossa is unchanged. No acute intracranial imaging findings. EVIDENCE OF ACUTE STROKE: NO. Abdomen/Pelvis CT 01/13/18 14:14 IMPRESSION: 1. Aortic aneurysms as described. 2. Cannot exclude mild pancreatitis. Correlate clinically. This is a subtle finding. 3. No urinary pathology is seen. Head MRI 01/13/18 14:48 IMPRESSION: ATROPHY AND CHRONIC MICRO-VASCULAR ISCHEMIC CHANGES. The previously described arachnoid cysts at the level of the middle cranial fossa on the left is stable. Other findings as noted above EVIDENCE OF ACUTE STROKE: NO. Guidance Fluoroscopy 01/14/18 00:00 IMPRESSION: Lumbar puncture under fluoroscopy. No immediate complication. Lumbar Puncture 01/14/18 21:34 IMPRESSION: Lumbar puncture under fluoroscopy. No immediate complication. Assessment & Plan - Diagnosis (1) Encephalopathy, unspecified Is this a current diagnosis for this admission?: Yes Plan: The differential diagnosis is long in this case but because of the neck stiffness and because of my suspicion for viral encephalitis especially herpes simplex encephalitis ,he will empirically be treated with IV acyclovir lumbar puncture will be obtained in a.m. (2) Chronic kidney disease, stage 3 Is this a current diagnosis for this admission?: Yes (3) Dementia Qualifiers: Dementia type: unspecified type Dementia behavioral disturbance: without behavioral disturbance Qualified Code(s): F03.90 - Unspecified dementia without behavioral disturbance Is this a current diagnosis for this admission?: Yes Plan: He has underlying dementia, it is unlikely that the acute confusional state is from dementia
--- NOTE | 2018-01-14 20:04 | PDOC PROGRESS REPORT ---
Subjective Progress Note for:: 01/14/18 Subjective:: Patient was seen today by the bedside, there is a big change in patient's condition is alert is responsive, he was empirically started on IV acyclovir, the lumbar puncture was done today under fluoroscopy, it demonstrated excessive protein in CF Reason For Visit: UNSPECIFIED ENCEPHALOPATHY Physical Exam Vital Signs: Temp Pulse Resp BP Pulse Ox 97.4 F 611 H 18 129/66 H 96 01/14/18 16:25 01/14/18 19:00 01/14/18 16:25 01/14/18 16:25 01/14/18 16:25 Intake & Output 01/13/18 01/14/18 01/15/18 06:59 06:59 06:59 Intake Total 1651 797 Output Total 200 200 Balance 1451 597 Weight 58.7 kg General appearance: PRESENT: no acute distress Eye exam: PRESENT: PERRLA Respiratory exam: PRESENT: clear to auscultation khadijah Cardiovascular exam: PRESENT: +S1, +S2 GI/Abdominal exam: PRESENT: soft Neurological exam: PRESENT: alert Results Laboratory Results: 01/14/18 10:24 01/14/18 10:24 01/13/18 01/13/18 01/13/18 22:07 22:07 22:07 WBC RBC Hgb Hct MCV MCH MCHC RDW Plt Count Seg Neutrophils % Lymphocytes % Monocytes % Eosinophils % Basophils % Absolute Neutrophils Absolute Lymphocytes Absolute Monocytes Absolute Eosinophils Absolute Basophils Sodium Potassium Chloride Carbon Dioxide Anion Gap BUN Creatinine Est GFR ( Amer) Est GFR (Non-Af Amer) Glucose Calcium Ammonia 17.8 Amylase 174 H TSH 1.22 Free T4 1.07 Fluid Tube Number CSF Volume CSF WBC CSF RBC CSF Color (1) CSF Appearance (1) CSF Color (2) CSF Appearance (2) CSF Color (3) CSF Appearance (3) CSF Color (4) CSF Appearance (4) CSF Glucose CSF Total Protein 01/14/18 01/14/18 01/14/18 10:10 10:10 10:10 WBC RBC Hgb Hct MCV MCH MCHC RDW Plt Count Seg Neutrophils % Lymphocytes % Monocytes % Eosinophils % Basophils % Absolute Neutrophils Absolute Lymphocytes Absolute Monocytes Absolute Eosinophils Absolute Basophils Sodium Potassium Chloride Carbon Dioxide Anion Gap BUN Creatinine Est GFR ( Amer) Est GFR (Non-Af Amer) Glucose Calcium Ammonia Amylase TSH Free T4 Fluid Tube Number 1 4 CSF Volume 7.7 7.7 CSF WBC 3 3 CSF RBC 554 1285 H CSF Color (1) COLORLESS COLORLESS CSF Appearance (1) CLEAR CLEAR CSF Color (2) CSF Appearance (2) SLIGHTLY HAZY SLIGHTLY HAZY CSF Color (3) CSF Appearance (3) SLIGHTLY HAZY SLIGHTLY HAZY CSF Color (4) STRAW STRAW CSF Appearance (4) CLEAR CLEAR CSF Glucose 66 CSF Total Protein 66 H 01/14/18 01/14/18 10:24 10:24 WBC 4.6 RBC 5.37 Hgb 12.8 L Hct 39.3 MCV 73 L MCH 23.9 L MCHC 32.6 RDW 14.5 H Plt Count 197 Seg Neutrophils % 60.2 Lymphocytes % 25.2 Monocytes % 9.6 Eosinophils % 4.1 Basophils % 0.9 Absolute Neutrophils 2.8 Absolute Lymphocytes 1.1 Absolute Monocytes 0.4 Absolute Eosinophils 0.2 Absolute Basophils 0.0 Sodium 142.1 Potassium 4.6 Chloride 102 Carbon Dioxide 29 Anion Gap 11 BUN 20 Creatinine 1.48 H Est GFR ( Amer) 55 L Est GFR (Non-Af Amer) 45 L Glucose 114 H Calcium 9.5 Ammonia Amylase TSH Free T4 Fluid Tube Number CSF Volume CSF WBC CSF RBC CSF Color (1) CSF Appearance (1) CSF Color (2) CSF Appearance (2) CSF Color (3) CSF Appearance (3) CSF Color (4) CSF Appearance (4) CSF Glucose CSF Total Protein 01/13/18 01/13/18 01/13/18 17:25 22:07 22:07 Creatine Kinase 48 L CK-MB (CK-2) 0.55 Troponin I 0.029 0.032 01/14/18 01/14/18 01/14/18 10:24 10:24 18:25 Creatine Kinase 50 L 49 L CK-MB (CK-2) 0.59 Troponin I 0.022 01/14/18 18:25 Creatine Kinase CK-MB (CK-2) 0.76 Troponin I 0.023 Impressions: Chest X-Ray 01/13/18 12:46 IMPRESSION: NO ACUTE RADIOGRAPHIC FINDING IN THE CHEST. Head CT 01/13/18 12:46 IMPRESSION: Involutional changes of aging with chronic microvascular ischemia. Subarachnoid cyst in the left middle cranial fossa is unchanged. No acute intracranial imaging findings. EVIDENCE OF ACUTE STROKE: NO. Abdomen/Pelvis CT 01/13/18 14:14 IMPRESSION: 1. Aortic aneurysms as described. 2. Cannot exclude mild pancreatitis. Correlate clinically. This is a subtle finding. 3. No urinary pathology is seen. Head MRI 01/13/18 14:48 IMPRESSION: ATROPHY AND CHRONIC MICRO-VASCULAR ISCHEMIC CHANGES. The previously described arachnoid cysts at the level of the middle cranial fossa on the left is stable. Other findings as noted above EVIDENCE OF ACUTE STROKE: NO. Guidance Fluoroscopy 01/14/18 00:00 IMPRESSION: Lumbar puncture under fluoroscopy. No immediate complication. Lumbar Puncture 01/14/18 21:34 IMPRESSION: Lumbar puncture under fluoroscopy. No immediate complication. Assessment & Plan - Diagnosis (1) Encephalopathy, unspecified Is this a current diagnosis for this admission?: Yes Plan: Continue IV acyclovir (2) Chronic kidney disease, stage 3 Is this a current diagnosis for this admission?: Yes (3) Dementia Qualifiers: Dementia type: unspecified type Dementia behavioral disturbance: without behavioral disturbance Qualified Code(s): F03.90 - Unspecified dementia without behavioral disturbance Is this a current diagnosis for this admission?: Yes
[2018-01-14] MEDS ORDERED: (PENDING PHARMACY ID) (Memantine Hcl/Donepezil Hcl [Namzaric 28 Mg-10 Mg Capsule] 1 CAP) PO SCH ×2 (20:45→22:00)
[2018-01-14] MEDS ORDERED: (PENDING PHARMACY ID) (Ferrous Sulfate [Ferrous Sulfate] 324 MG) PO SCH (20:45)
[2018-01-14] MEDS: CYANOCOBALAMIN (VITAMIN B-12) 1,000 MCG TABLET PO SCH (22:51)
[2018-01-14] MEDS: FLUTICASONE NASAL SPRAY 50 MCG/SPRY 120 SPRAY/16 GM NASL SCH (22:52)
[2018-01-14] MEDS: FERROUS SULFATE 325 MG TABLET PO SCH (22:52)
[2018-01-15] MEDS: ACYCLOVIR SODIUM 500 MG in NORMAL SALINE 100 ML IV SCH ×3 (05:03→21:20)
[2018-01-15 06:37] LABS: ABSOLUTE EOSINOPHILS # (AUTO) 0.3 10^3/uL (0.0-0.6); ABSOLUTE LYMPHOCYTES (AUTO) 1.4 10^3/uL (0.5-4.7); ABSOLUTE MONOCYTES (AUTO) 0.5 10^3/uL (0.1-1.4); BASOPHILS % (AUTO) 0.7 % (0-2); EOSINOPHILS % (AUTO) 5.2 % (0-6); HEMATOCRIT 35.3 % (37.9-51.0); HEMOGLOBIN 11.3 g/dL (13.5-17.0); LYMPHOCYTES % (AUTO) 27.2 % (13-45); MEAN CORPUSCULAR HEMOGLOBIN 23.7 pg (27.0-33.4); MEAN CORPUSCULAR HGB CONC 32.1 g/dL (32.0-36.0); MEAN CORPUSCULAR VOLUME 74 fl (80-97); MONOCYTES % (AUTO) 9.7 % (3-13); PLATELET COUNT 182 10^3/uL (150-450); RED BLOOD COUNT 4.79 10^6/uL (4.35-5.55); RED CELL DISTRIBUTION WIDTH 14.1 % (11.5-14.0); SEGMENTED NEUTROPHILS % (AUTO) 57.2 % (42-78); TOTAL CELLS COUNTED % (AUTO) 100 %; WHITE BLOOD COUNT 5.2 10^3/uL (4.0-10.5)
[2018-01-15 06:55] LABS: ANION GAP 11 (5-19); BLOOD UREA NITROGEN 15 mg/dL (7-20); CARBON DIOXIDE 25 mmol/L (22-30); CHLORIDE 105 mmol/L (98-107); GLUCOSE 104 mg/dL (75-110); POTASSIUM 4.4 mmol/L (3.6-5.0); SODIUM 141.2 mmol/L (137-145)
[2018-01-15] MEDS: FERROUS SULFATE 325 MG TABLET PO SCH (10:13)
[2018-01-15] MEDS: FLUTICASONE NASAL SPRAY 50 MCG/SPRY 120 SPRAY/16 GM NASL SCH (10:13)
[2018-01-15] MEDS: CETIRIZINE 10 MG TABLET PO SCH (10:13)
[2018-01-15] MEDS: CYANOCOBALAMIN (VITAMIN B-12) 1,000 MCG TABLET PO SCH (10:13)
[2018-01-15] MEDS: NORMAL SALINE 1000 ML 1,000 ML IV PRN (10:14)
--- NOTE | 2018-01-15 14:53 | PDOC PROGRESS REPORT ---
Subjective Progress Note for:: 01/15/18 Subjective:: Patient was seen by the bedside, he was admitted for the management of unspecified encephalopathy, he is empirically on acyclovir IV for presumptive herpes encephalitis, patient continued to improve. He has right inguinal hernia Reason For Visit: UNSPECIFIED ENCEPHALOPATHY Physical Exam Vital Signs: Temp Pulse Resp BP Pulse Ox 97.7 F 68 15 117/63 100 01/15/18 11:41 01/15/18 14:00 01/15/18 11:41 01/15/18 11:41 01/15/18 11:41 Intake & Output 01/14/18 01/15/18 01/16/18 06:59 06:59 06:59 Intake Total 1651 1017 1701 Output Total 200 200 150 Balance 3221 474 0692 Weight 58.7 kg 61.5 kg General appearance: PRESENT: no acute distress Eye exam: PRESENT: PERRLA Respiratory exam: PRESENT: clear to auscultation khadijah Cardiovascular exam: PRESENT: +S1, +S2 GI/Abdominal exam: PRESENT: hernia, other Neurological exam: PRESENT: alert Results Laboratory Results: 01/15/18 06:19 01/15/18 06:19 01/15/18 01/15/18 06:19 06:19 WBC 5.2 RBC 4.79 Hgb 11.3 L Hct 35.3 L MCV 74 L MCH 23.7 L MCHC 32.1 RDW 14.1 H Plt Count 182 Seg Neutrophils % 57.2 Lymphocytes % 27.2 Monocytes % 9.7 Eosinophils % 5.2 Basophils % 0.7 Absolute Neutrophils 3.0 Absolute Lymphocytes 1.4 Absolute Monocytes 0.5 Absolute Eosinophils 0.3 Absolute Basophils 0.0 Sodium 141.2 Potassium 4.4 Chloride 105 Carbon Dioxide 25 Anion Gap 11 BUN 15 Creatinine 1.30 H Est GFR ( Amer) > 60 Est GFR (Non-Af Amer) 53 L Glucose 104 Calcium 9.0 01/13/18 01/13/18 01/13/18 17:25 22:07 22:07 Creatine Kinase 48 L CK-MB (CK-2) 0.55 Troponin I 0.029 0.032 01/14/18 01/14/18 01/14/18 10:24 10:24 18:25 Creatine Kinase 50 L 49 L CK-MB (CK-2) 0.59 Troponin I 0.022 01/14/18 18:25 Creatine Kinase CK-MB (CK-2) 0.76 Troponin I 0.023 Impressions: Chest X-Ray 01/13/18 12:46 IMPRESSION: NO ACUTE RADIOGRAPHIC FINDING IN THE CHEST. Head CT 01/13/18 12:46 IMPRESSION: Involutional changes of aging with chronic microvascular ischemia. Subarachnoid cyst in the left middle cranial fossa is unchanged. No acute intracranial imaging findings. EVIDENCE OF ACUTE STROKE: NO. Abdomen/Pelvis CT 01/13/18 14:14 IMPRESSION: 1. Aortic aneurysms as described. 2. Cannot exclude mild pancreatitis. Correlate clinically. This is a subtle finding. 3. No urinary pathology is seen. Head MRI 01/13/18 14:48 IMPRESSION: ATROPHY AND CHRONIC MICRO-VASCULAR ISCHEMIC CHANGES. The previously described arachnoid cysts at the level of the middle cranial fossa on the left is stable. Other findings as noted above EVIDENCE OF ACUTE STROKE: NO. Guidance Fluoroscopy 01/14/18 00:00 IMPRESSION: Lumbar puncture under fluoroscopy. No immediate complication. Lumbar Puncture 01/14/18 21:34 IMPRESSION: Lumbar puncture under fluoroscopy. No immediate complication. Assessment & Plan - Diagnosis (1) Encephalopathy, unspecified Is this a current diagnosis for this admission?: Yes Plan: Continue IV acyclovir (2) Chronic kidney disease, stage 3 Is this a current diagnosis for this admission?: Yes (3) Dementia Qualifiers: Dementia type: unspecified type Dementia behavioral disturbance: without behavioral disturbance Qualified Code(s): F03.90 - Unspecified dementia without behavioral disturbance Is this a current diagnosis for this admission?: Yes (4) Right inguinal hernia Is this a current diagnosis for this admission?: Yes Plan: Consultation from surgery
[2018-01-15 21:36] LABS: HSV I DNA Negative (Negative)
[2018-01-16] MEDS: ACYCLOVIR SODIUM 500 MG in NORMAL SALINE 100 ML IV SCH ×3 (05:32→21:23)
[2018-01-16] MEDS: DONEPEZIL HCL PO SCH ×2 (05:33→17:15)
[2018-01-16] MEDS: MEMANTINE HCL PO SCH ×2 (05:33→17:15)
--- NOTE | 2018-01-16 06:54 | PDOC CONSULTATION ---
Consultation Consult Date: 01/16/18 Consult reason:: Bilateral inguinal hernias History of Present Illness Admission Date/PCP: 01/13/18 16:16 ZENOBIA BOWSER MD History of Present Illness: SHY INGRAM is a 82 year old male seen at the request of Dr. Bowser. The patient was admitted with encephalopathy of unknown origin. The patient is still mildly confused, although he is very conversant. The patient reports a long history of swelling in the right groin that has slowly progressed into his testicle. He denies any pain or difficulty with straining. He reports continuation of his daily activities without significant interruption due to discomfort. The patient denies nausea, vomiting, abdominal pain, obstipation, scrotal pain, leg pain. The bulge grows when he strains. He gets smaller when he lays flat. Again, he has no pain or discomfort to speak of. He denies chest pain, shortness of breath, headache, blurry vision, orthostasis, melena, hematochezia, hematemesis, fatigue, or malaise. Past Medical History Cardiac Medical History: Reports: Hyperlipidema, Hypertension - x 8 years Denies: Coronary Artery Disease, Myocardial Infarction Pulmonary Medical History: Reports: Pneumonia - 20 years ago Denies: Asthma, Bronchitis, Chronic Obstructive Pulmonary Disease (COPD) Neurological Medical History: Denies: Seizures Musculoskeltal Medical History: Denies: Arthritis Psychiatric Medical History: Denies: Depression Hematology: Reports: Anemia - currently Past Surgical History Past Surgical History: Denies: Pacemaker Social History Lives with: Alone Smoking Status: Former Smoker Frequency of Alcohol Use: None Hx Recreational Drug Use: No Drugs: None Hx Prescription Drug Abuse: No - Advance Directive Resuscitation Status: Full Code Family History Family History: Reviewed & Not Pertinent Parental Family History Reviewed: Yes Children Family History Reviewed: Yes Sibling(s) Family History Reviewed.: Yes Medication/Allergy Home Medications: Aspirin [Adult Low Dose Aspirin EC] 81 mg PO DAILY 01/14/18 Cetirizine HCl [Zyrtec 10 mg Tablet] 10 mg PO DAILY 01/14/18 Cyanocobalamin (Vitamin B-12) [Vitamin B-12 1000 mcg Tablet] 2,000 mcg PO DAILY 01/14/18 Ferrous Sulfate 324 mg PO DAILY 01/14/18 Fluticasone Propionate [Flonase Nasal [place] 50 Mcg/[place] 16 gm] 1 spray NASL DAILY 01/14/18 Furosemide [Lasix 40 mg Tablet] 40 mg PO DAILY 01/14/18 Hydrochlorothiazide [Hydrodiuril 50 mg Tablet] 50 mg PO DAILY 01/14/18 Memantine HCl/Donepezil HCl [Namzaric 28 mg-10 mg Capsule] 1 cap PO QPM Potassium Chloride [Klor-Con 10 Meq Capsule ER] 20 mg PO DAILY 01/14/18 Pravastatin Sodium [Pravachol] 40 mg PO QHS 01/14/18 Allergies/Adverse Reactions: No Known Allergies Allergy (Unverified 05/07/11 10:18) Review of Systems Constitutional: ABSENT: anorexia, chills, fatigue Eyes: ABSENT: visual disturbances Ears: ABSENT: hearing changes Nose, Mouth, and Throat: ABSENT: sore throat Cardiovascular: ABSENT: chest pain, palpitations Respiratory: ABSENT: cough, dyspnea Gastrointestinal: PRESENT: other - Right inguinal bulge. ABSENT: abdominal pain Genitourinary: ABSENT: dysuria Musculoskeletal: ABSENT: back pain Integumentary: ABSENT: pruritus, rash Neurological: PRESENT: confusion. ABSENT: abnormal speech, convulsions Psychiatric: ABSENT: anxiety, depression Hematologic/Lymphatic: ABSENT: easy bleeding, easy bruising Physical Exam Vital Signs: Temp Pulse Resp BP Pulse Ox 98.5 F 66 20 131/73 H 96 01/16/18 03:58 01/16/18 03:58 01/16/18 03:58 01/16/18 03:58 01/16/18 03:58 Intake & Output 01/14/18 01/15/18 01/16/18 06:59 06:59 06:59 Intake Total 1651 1017 2129 Output Total 200 200 450 Balance 3555 105 4640 Weight 58.7 kg 61.5 kg General appearance: PRESENT: thin, other - Elderly Head exam: PRESENT: atraumatic, normocephalic Eye exam: PRESENT: EOMI, PERRLA, other - Arcus senilis present. ABSENT: scleral icterus Mouth exam: PRESENT: moist, neck supple Neck exam: ABSENT: meningismus, tenderness, thyromegaly, tracheal deviation Respiratory exam: PRESENT: clear to auscultation khadijah, unlabored. ABSENT: chest wall tenderness, tachypnea, wheezes Cardiovascular exam: PRESENT: RRR Pulses: PRESENT: normal radial pulses Vascular exam: PRESENT: normal capillary refill. ABSENT: pallor GI/Abdominal exam: PRESENT: soft, other - Bilateral inguinal hernias, right is large and extends into the scrotum. Left is small and reducible.. ABSENT: distended, firm, guarding, tenderness Rectal exam: PRESENT: deferred Gentrourinary exam: PRESENT: scrotal swelling - Right inguinal hernia extends into the scrotum. Testicles appeared normal to palpation. Extremities exam: ABSENT: clubbing Musculoskeletal exam: ABSENT: deformity Neurological exam: PRESENT: alert, awake, CN II-XII grossly intact Psychiatric exam: ABSENT: agitated, anxious, depressed Focused psych exam: PRESENT: other - Mild confusion Skin exam: ABSENT: cyanosis, erythema, jaundice Results Laboratory Results: 01/15/18 06:19 01/15/18 06:19 01/15/18 06:19 Sodium 141.2 Potassium 4.4 Chloride 105 Carbon Dioxide 25 Anion Gap 11 BUN 15 Creatinine 1.30 H Est GFR ( Amer) > 60 Est GFR (Non-Af Amer) 53 L Glucose 104 Calcium 9.0 01/13/18 01/13/18 01/13/18 17:25 22:07 22:07 Creatine Kinase 48 L CK-MB (CK-2) 0.55 Troponin I 0.029 0.032 01/14/18 01/14/18 01/14/18 10:24 10:24 18:25 Creatine Kinase 50 L 49 L CK-MB (CK-2) 0.59 Troponin I 0.022 01/14/18 18:25 Creatine Kinase CK-MB (CK-2) 0.76 Troponin I 0.023 Impressions: Chest X-Ray 01/13/18 12:46 IMPRESSION: NO ACUTE RADIOGRAPHIC FINDING IN THE CHEST. Head CT 01/13/18 12:46 IMPRESSION: Involutional changes of aging with chronic microvascular ischemia. Subarachnoid cyst in the left middle cranial fossa is unchanged. No acute intracranial imaging findings. EVIDENCE OF ACUTE STROKE: NO. Abdomen/Pelvis CT 01/13/18 14:14 IMPRESSION: 1. Aortic aneurysms as described. 2. Cannot exclude mild pancreatitis. Correlate clinically. This is a subtle finding. 3. No urinary pathology is seen. Head MRI 01/13/18 14:48 IMPRESSION: ATROPHY AND CHRONIC MICRO-VASCULAR ISCHEMIC CHANGES. The previously described arachnoid cysts at the level of the middle cranial fossa on the left is stable. Other findings as noted above EVIDENCE OF ACUTE STROKE: NO. Guidance Fluoroscopy 01/14/18 00:00 IMPRESSION: Lumbar puncture under fluoroscopy. No immediate complication. Lumbar Puncture 01/14/18 21:34 IMPRESSION: Lumbar puncture under fluoroscopy. No immediate complication. Assessment & Plan - Diagnosis (1) Bilateral inguinal hernia without obstruction or gangrene Qualifiers: Recurrence: non-recurrent Qualified Code(s): K40.20 - Bilateral inguinal hernia, without obstruction or gangrene, not specified as recurrent Is this a current diagnosis for this admission?: Yes - Plan Summary Plan Summary: This is an 82-year-old male with bilateral inguinal hernias, right greater than left. The patient denies any symptoms at present. At this time, the patient is not interested in surgical intervention, which is reasonable. I have recommended that the patient cover from his current medical ailments and be discharged home. If the patient desires surgical intervention, he can follow- up with me as an outpatient. I have educated him regarding the signs and symptoms of strangulation and obstruction. He should contact me immediately with any questions or concerns.
[2018-01-16] MEDS: NORMAL SALINE 1000 ML 1,000 ML IV PRN ×2 (07:48→19:30)
[2018-01-16 09:22] LABS: ABSOLUTE EOSINOPHILS # (AUTO) 0.3 10^3/uL (0.0-0.6); ABSOLUTE LYMPHOCYTES (AUTO) 1.7 10^3/uL (0.5-4.7); ABSOLUTE MONOCYTES (AUTO) 0.7 10^3/uL (0.1-1.4); ABSOLUTE NEUT (AUTO) 4.1 10^3/uL (1.7-8.2); BASOPHILS % (AUTO) 0.6 % (0-2); HEMATOCRIT 35.7 % (37.9-51.0); HEMOGLOBIN 11.4 g/dL (13.5-17.0); LYMPHOCYTES % (AUTO) 24.2 % (13-45); MEAN CORPUSCULAR HEMOGLOBIN 23.8 pg (27.0-33.4); MEAN CORPUSCULAR VOLUME 74 fl (80-97); MONOCYTES % (AUTO) 10.6 % (3-13); PLATELET COUNT 187 10^3/uL (150-450); RED BLOOD COUNT 4.81 10^6/uL (4.35-5.55); RED CELL DISTRIBUTION WIDTH 14.4 % (11.5-14.0); SEGMENTED NEUTROPHILS % (AUTO) 59.6 % (42-78); TOTAL CELLS COUNTED % (AUTO) 100 %; WHITE BLOOD COUNT 6.9 10^3/uL (4.0-10.5)
[2018-01-16 09:36] LABS: ANION GAP 9 (5-19); BLOOD UREA NITROGEN 15 mg/dL (7-20); CARBON DIOXIDE 27 mmol/L (22-30); CHLORIDE 104 mmol/L (98-107); GLUCOSE 95 mg/dL (75-110); POTASSIUM 4.3 mmol/L (3.6-5.0); SODIUM 139.7 mmol/L (137-145)
[2018-01-16 09:55] LABS: HSV II DNA Negative (Negative)
[2018-01-16] MEDS: FERROUS SULFATE 325 MG TABLET PO SCH (10:00)
[2018-01-16] MEDS: CETIRIZINE 10 MG TABLET PO SCH (10:00)
[2018-01-16] MEDS: CYANOCOBALAMIN (VITAMIN B-12) 1,000 MCG TABLET PO SCH (10:00)
[2018-01-16] MEDS: FLUTICASONE NASAL SPRAY 50 MCG/SPRY 120 SPRAY/16 GM NASL SCH (10:00)
[2018-01-16] MEDS ORDERED: BISACODYL 10 MG SUPP.RECT PR ONE (20:20)
[2018-01-16] MEDS: DOCUSATE SODIUM 100 MG CAPSULE PO SCH (21:23)
[2018-01-17] MEDS: ACYCLOVIR SODIUM 500 MG in NORMAL SALINE 100 ML IV SCH ×3 (05:10→21:12)
[2018-01-17] MEDS: CETIRIZINE 10 MG TABLET PO SCH (09:43)
[2018-01-17] MEDS: FERROUS SULFATE 325 MG TABLET PO SCH (09:43)
[2018-01-17] MEDS: CYANOCOBALAMIN (VITAMIN B-12) 1,000 MCG TABLET PO SCH (09:43)
[2018-01-17] MEDS: POLYETHYLENE GLYCOL 3350 POWDER 17 GM/1 PACKET PO SCH (09:43)
[2018-01-17] MEDS: FLUTICASONE NASAL SPRAY 50 MCG/SPRY 120 SPRAY/16 GM NASL SCH (09:43)
[2018-01-17] MEDS: NORMAL SALINE 1000 ML 1,000 ML IV PRN (11:56)
--- NOTE | 2018-01-17 15:38 | PDOC PROGRESS REPORT ---
Subjective Progress Note for:: 01/17/18 Subjective:: Patient was admitted for encephalopathy and patient CSF culture is so far so all negative Patient currently alert awake very hard to hearing Denied any headache Denied any chest pain denies any shortness of breath Reason For Visit: UNSPECIFIED ENCEPHALOPATHY Physical Exam Vital Signs: Temp Pulse Resp BP Pulse Ox 98.2 F 63 19 126/74 H 100 01/17/18 11:35 01/17/18 11:35 01/17/18 11:35 01/17/18 11:35 01/17/18 11:35 Intake & Output 01/16/18 01/17/18 01/18/18 06:59 06:59 06:59 Intake Total 3329 3048 1031 Output Total 950 1375 400 Balance 2379 1843 631 Weight 68.8 kg 65.4 kg General appearance: PRESENT: no acute distress, well-developed, well-nourished Head exam: PRESENT: atraumatic, normocephalic Eye exam: PRESENT: conjunctiva pink, EOMI, PERRLA. ABSENT: scleral icterus Ear exam: PRESENT: normal external ear exam Mouth exam: PRESENT: moist, tongue midline Neck exam: PRESENT: full ROM. ABSENT: carotid bruit, JVD, lymphadenopathy, thyromegaly Respiratory exam: PRESENT: clear to auscultation khadijah Cardiovascular exam: PRESENT: RRR. ABSENT: diastolic murmur, rubs, systolic murmur Pulses: PRESENT: normal dorsalis pedis pul, +2 pedal pulses bilateral Vascular exam: PRESENT: normal capillary refill GI/Abdominal exam: PRESENT: normal bowel sounds, soft. ABSENT: distended, guarding, mass, organolmegaly, rebound, tenderness Rectal exam: PRESENT: deferred Neurological exam: PRESENT: alert, awake, oriented to person, oriented to place. ABSENT: motor sensory deficit Psychiatric exam: PRESENT: appropriate affect, normal mood. ABSENT: homicidal ideation, suicidal ideation Skin exam: PRESENT: dry, intact, warm. ABSENT: cyanosis, rash Results Laboratory Results: 01/16/18 09:03 01/16/18 09:03 01/14/18 10:10 Cerebral Spinal Fluid - Csf Gram Stain - Final 01/14/18 10:10 Cerebral Spinal Fluid - Csf CSF Culture - Final NO GROWTH 3 DAYS 01/14/18 10:10 Cerebral Spinal Fluid - Csf AFB Smear Concentration - Final 01/14/18 10:10 Cerebral Spinal Fluid - Csf Acid Fast Bacilli Smear - Final Not Reportable 01/13/18 01/13/18 01/13/18 17:25 22:07 22:07 Creatine Kinase 48 L CK-MB (CK-2) 0.55 Troponin I 0.029 0.032 01/14/18 01/14/18 01/14/18 10:24 10:24 18:25 Creatine Kinase 50 L 49 L CK-MB (CK-2) 0.59 Troponin I 0.022 01/14/18 18:25 Creatine Kinase CK-MB (CK-2) 0.76 Troponin I 0.023 Impressions: Chest X-Ray 01/13/18 12:46 IMPRESSION: NO ACUTE RADIOGRAPHIC FINDING IN THE CHEST. Head CT 01/13/18 12:46 IMPRESSION: Involutional changes of aging with chronic microvascular ischemia. Subarachnoid cyst in the left middle cranial fossa is unchanged. No acute intracranial imaging findings. EVIDENCE OF ACUTE STROKE: NO. Abdomen/Pelvis CT 01/13/18 14:14 IMPRESSION: 1. Aortic aneurysms as described. 2. Cannot exclude mild pancreatitis. Correlate clinically. This is a subtle finding. 3. No urinary pathology is seen. Head MRI 01/13/18 14:48 IMPRESSION: ATROPHY AND CHRONIC MICRO-VASCULAR ISCHEMIC CHANGES. The previously described arachnoid cysts at the level of the middle cranial fossa on the left is stable. Other findings as noted above EVIDENCE OF ACUTE STROKE: NO. Guidance Fluoroscopy 01/14/18 00:00 IMPRESSION: Lumbar puncture under fluoroscopy. No immediate complication. Lumbar Puncture 01/14/18 21:34 IMPRESSION: Lumbar puncture under fluoroscopy. No immediate complication. Assessment & Plan - Diagnosis (1) Altered mental status, unspecified Qualifiers: Altered mental status type: unspecified Qualified Code(s): R41.82 - Altered mental status, unspecified Is this a current diagnosis for this admission?: Yes (2) Bilateral inguinal hernia without obstruction or gangrene Qualifiers: Recurrence: non-recurrent Qualified Code(s): K40.20 - Bilateral inguinal hernia, without obstruction or gangrene, not specified as recurrent Is this a current diagnosis for this admission?: Yes (3) Chronic kidney disease, stage 3 Is this a current diagnosis for this admission?: Yes (4) Encephalopathy, unspecified Is this a current diagnosis for this admission?: Yes (5) Atrial fibrillation Is this a current diagnosis for this admission?: Yes - Time Time Spent with patient: 15-24 minutes Medications reviewed and adjusted accordingly: Yes Anticipated discharge: Other Within: Other - Inpatient Certification Based on my medical assessment, after consideration of the patient's comorbidities, presenting symptoms, or acuity I expect that the services needed warrant INPATIENT care.: Yes I certify that my determination is in accordance with my understanding of Medicare's requirements for reasonable and necessary INPATIENT services [42 CFR 412.3e].: Yes Medical Necessity: Need Close Monitoring Due to Risk of Patient Decompensation Post Hospital Care: D/C Seat Cover Maker Documentation - Plan Summary Plan Summary: Patient is currently doing well hopefully will DC the acyclovir IV
[2018-01-17] MEDS: MEMANTINE HCL PO SCH (17:40)
[2018-01-17] MEDS: DONEPEZIL HCL PO SCH (17:40)
--- NOTE | 2018-01-17 19:17 | PDOC PROGRESS REPORT ---
Subjective Progress Note for:: 01/16/18 Subjective:: Patoient reported lack of bowel movement for several days. No abdominal pain, nausea, or vomiting. No fever or chills. No headache or dizziness. Reason For Visit: UNSPECIFIED ENCEPHALOPATHY Physical Exam Vital Signs: Temp Pulse Resp BP Pulse Ox 98.4 F 74 17 103/62 98 01/17/18 15:32 01/17/18 15:32 01/17/18 15:32 01/17/18 15:32 01/17/18 15:32 Intake & Output 01/16/18 01/17/18 01/18/18 06:59 06:59 06:59 Intake Total 3329 3048 1031 Output Total 950 1375 400 Balance 2379 5603 631 Weight 68.8 kg 65.4 kg General appearance: PRESENT: no acute distress, well-developed, well-nourished Eye exam: PRESENT: conjunctiva pink, EOMI, PERRLA. ABSENT: scleral icterus Ear exam: PRESENT: TM's normal bilaterally Mouth exam: PRESENT: moist Respiratory exam: PRESENT: clear to auscultation khadijah Cardiovascular exam: PRESENT: RRR. ABSENT: diastolic murmur, rubs, systolic murmur Vascular exam: PRESENT: normal capillary refill. ABSENT: pallor, other GI/Abdominal exam: PRESENT: normal bowel sounds, soft. ABSENT: distended, guarding, mass, organolmegaly, rebound, tenderness Extremities exam: ABSENT: pedal edema Musculoskeletal exam: PRESENT: normal inspection Neurological exam: PRESENT: alert, awake, oriented to person, oriented to place , oriented to time, oriented to situation, CN II-XII grossly intact. ABSENT: motor sensory deficit Psychiatric exam: PRESENT: appropriate affect, normal mood. ABSENT: homicidal ideation, suicidal ideation Skin exam: PRESENT: dry, intact, warm. ABSENT: cyanosis, rash Results Laboratory Results: 01/16/18 09:03 01/16/18 09:03 01/14/18 10:10 Cerebral Spinal Fluid - Csf Gram Stain - Final 01/14/18 10:10 Cerebral Spinal Fluid - Csf CSF Culture - Final NO GROWTH 3 DAYS 01/13/18 01/13/18 01/13/18 17:25 22:07 22:07 Creatine Kinase 48 L CK-MB (CK-2) 0.55 Troponin I 0.029 0.032 01/14/18 01/14/18 01/14/18 10:24 10:24 18:25 Creatine Kinase 50 L 49 L CK-MB (CK-2) 0.59 Troponin I 0.022 01/14/18 18:25 Creatine Kinase CK-MB (CK-2) 0.76 Troponin I 0.023 Impressions: Chest X-Ray 01/13/18 12:46 IMPRESSION: NO ACUTE RADIOGRAPHIC FINDING IN THE CHEST. Head CT 01/13/18 12:46 IMPRESSION: Involutional changes of aging with chronic microvascular ischemia. Subarachnoid cyst in the left middle cranial fossa is unchanged. No acute intracranial imaging findings. EVIDENCE OF ACUTE STROKE: NO. Abdomen/Pelvis CT 01/13/18 14:14 IMPRESSION: 1. Aortic aneurysms as described. 2. Cannot exclude mild pancreatitis. Correlate clinically. This is a subtle finding. 3. No urinary pathology is seen. Head MRI 01/13/18 14:48 IMPRESSION: ATROPHY AND CHRONIC MICRO-VASCULAR ISCHEMIC CHANGES. The previously described arachnoid cysts at the level of the middle cranial fossa on the left is stable. Other findings as noted above EVIDENCE OF ACUTE STROKE: NO. Guidance Fluoroscopy 01/14/18 00:00 IMPRESSION: Lumbar puncture under fluoroscopy. No immediate complication. Lumbar Puncture 01/14/18 21:34 IMPRESSION: Lumbar puncture under fluoroscopy. No immediate complication. Assessment & Plan - Diagnosis (1) Altered mental status, unspecified Qualifiers: Altered mental status type: unspecified Qualified Code(s): R41.82 - Altered mental status, unspecified Is this a current diagnosis for this admission?: Yes Plan: Patient level of alert is improving as reported by nursing staff and his girlfriend at bedside. (2) Encephalopathy, unspecified Is this a current diagnosis for this admission?: Yes Plan: continue current antiviral coverage for possible viral meningitis. Monitor his CBC indices. (3) Constipation, unspecified Qualifiers: Constipation type: unspecified constipation type Qualified Code(s): K59.00 - Constipation, unspecified Is this a current diagnosis for this admission?: Yes Plan: Administer Dulcolax 10 mg SD x 1 dose. Start on Colace 200 mg po qhs and Miralax 17 gm po daily. Hold daily Miralax for diarrhea. Maintain on all other current medication management. 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 - Time Time Spent with patient: 25-34 minutes Medications reviewed and adjusted accordingly: Yes Anticipated discharge: Home with Homehealth Within: Other - Inpatient Certification Based on my medical assessment, after consideration of the patient's comorbidities, presenting symptoms, or acuity I expect that the services needed warrant INPATIENT care.: Yes I certify that my determination is in accordance with my understanding of Medicare's requirements for reasonable and necessary INPATIENT services [42 CFR 412.3e].: Yes Medical Necessity: Need Close Monitoring Due to Risk of Patient Decompensation, Need For IV Fluids, Need For Continuous Telemetry Monitoring, Need for IV Antibiotics, Risk of Complication if Not Cared For in Hospital Post Hospital Care: D/C Lamination Operator Documentation - Plan Summary Plan Summary: See covering attending physician orders as outline by above care plan.
[2018-01-17] MEDS: DOCUSATE SODIUM 100 MG CAPSULE PO SCH (21:12)
[2018-01-18] MEDS: NORMAL SALINE 1000 ML 1,000 ML IV PRN (04:32)
[2018-01-18] MEDS: ACYCLOVIR SODIUM 500 MG in NORMAL SALINE 100 ML IV SCH ×3 (05:17→21:27)
--- NOTE | 2018-01-18 08:59 | PDOC PROGRESS REPORT ---
Subjective Progress Note for:: 01/18/18 Subjective:: Patient was admitted for encephalopathy and patient CSF culture is so far so all negative Patient currently alert awake very hard to hearing Denied any headache Denied any chest pain denies any shortness of breath Reason For Visit: UNSPECIFIED ENCEPHALOPATHY Physical Exam Vital Signs: Temp Pulse Resp BP Pulse Ox 97.7 F 66 18 123/76 97 01/18/18 07:45 01/18/18 07:45 01/18/18 07:45 01/18/18 07:45 01/18/18 07:45 Intake & Output 01/17/18 01/18/18 01/19/18 06:59 06:59 06:59 Intake Total 3048 2641 Output Total 1375 1400 Balance 1673 1241 Weight 65.4 kg 63 kg General appearance: PRESENT: no acute distress, well-developed, well-nourished Head exam: PRESENT: atraumatic, normocephalic Eye exam: PRESENT: conjunctiva pink, EOMI, PERRLA. ABSENT: scleral icterus Ear exam: PRESENT: normal external ear exam Mouth exam: PRESENT: moist, tongue midline Neck exam: PRESENT: full ROM. ABSENT: carotid bruit, JVD, lymphadenopathy, thyromegaly Respiratory exam: PRESENT: clear to auscultation khadijah Cardiovascular exam: PRESENT: RRR. ABSENT: diastolic murmur, rubs, systolic murmur Pulses: PRESENT: normal dorsalis pedis pul, +2 pedal pulses bilateral Vascular exam: PRESENT: normal capillary refill GI/Abdominal exam: PRESENT: normal bowel sounds, soft. ABSENT: distended, guarding, mass, organolmegaly, rebound, tenderness Rectal exam: PRESENT: deferred Neurological exam: PRESENT: alert, awake, oriented to person, oriented to place , oriented to time, oriented to situation, CN II-XII grossly intact. ABSENT: motor sensory deficit Psychiatric exam: PRESENT: appropriate affect, normal mood. ABSENT: homicidal ideation, suicidal ideation Skin exam: PRESENT: dry, intact, warm. ABSENT: cyanosis, rash Results Laboratory Results: 01/16/18 09:03 01/16/18 09:03 01/14/18 10:10 Cerebral Spinal Fluid - Csf Gram Stain - Final 01/14/18 10:10 Cerebral Spinal Fluid - Csf CSF Culture - Final NO GROWTH 3 DAYS 01/13/18 01/13/1818 17:25 22:07 22:07 Creatine Kinase 48 L CK-MB (CK-2) 0.55 Troponin I 0.029 0.032 01/14/18 01/14/18 01/14/18 10:24 10:24 18:25 Creatine Kinase 50 L 49 L CK-MB (CK-2) 0.59 Troponin I 0.022 01/14/18 18:25 Creatine Kinase CK-MB (CK-2) 0.76 Troponin I 0.023 Impressions: Chest X-Ray 01/13/18 12:46 IMPRESSION: NO ACUTE RADIOGRAPHIC FINDING IN THE CHEST. Head CT 01/13/18 12:46 IMPRESSION: Involutional changes of aging with chronic microvascular ischemia. Subarachnoid cyst in the left middle cranial fossa is unchanged. No acute intracranial imaging findings. EVIDENCE OF ACUTE STROKE: NO. Abdomen/Pelvis CT 01/13/18 14:14 IMPRESSION: 1. Aortic aneurysms as described. 2. Cannot exclude mild pancreatitis. Correlate clinically. This is a subtle finding. 3. No urinary pathology is seen. Head MRI 01/13/18 14:48 IMPRESSION: ATROPHY AND CHRONIC MICRO-VASCULAR ISCHEMIC CHANGES. The previously described arachnoid cysts at the level of the middle cranial fossa on the left is stable. Other findings as noted above EVIDENCE OF ACUTE STROKE: NO. Guidance Fluoroscopy 01/14/18 00:00 IMPRESSION: Lumbar puncture under fluoroscopy. No immediate complication. Lumbar Puncture 01/14/18 21:34 IMPRESSION: Lumbar puncture under fluoroscopy. No immediate complication. Assessment & Plan - Diagnosis (1) Altered mental status, unspecified Qualifiers: Altered mental status type: unspecified Qualified Code(s): R41.82 - Altered mental status, unspecified Is this a current diagnosis for this admission?: Yes (2) Bilateral inguinal hernia without obstruction or gangrene Qualifiers: Recurrence: non-recurrent Qualified Code(s): K40.20 - Bilateral inguinal hernia, without obstruction or gangrene, not specified as recurrent Is this a current diagnosis for this admission?: Yes (3) Chronic kidney disease, stage 3 Is this a current diagnosis for this admission?: Yes (4) Encephalopathy, unspecified Is this a current diagnosis for this admission?: Yes (5) Atrial fibrillation Is this a current diagnosis for this admission?: Yes - Time Time Spent with patient: 15-24 minutes Medications reviewed and adjusted accordingly: Yes Anticipated discharge: Home Within: Other - Inpatient Certification Based on my medical assessment, after consideration of the patient's comorbidities, presenting symptoms, or acuity I expect that the services needed warrant INPATIENT care.: Yes I certify that my determination is in accordance with my understanding of Medicare's requirements for reasonable and necessary INPATIENT services [42 CFR 412.3e].: Yes Medical Necessity: Need Close Monitoring Due to Risk of Patient Decompensation, Need For IV Fluids Post Hospital Care: D/C Training Instructor Documentation - Plan Summary Plan Summary: Possible viral meningitis currently doing well will wait for the viral culture continues acyclovir once a viral culture is negative will DC the acyclovir
[2018-01-18] MEDS: CETIRIZINE 10 MG TABLET PO SCH (09:01)
[2018-01-18] MEDS: POLYETHYLENE GLYCOL 3350 POWDER 17 GM/1 PACKET PO SCH (09:01)
[2018-01-18] MEDS: CYANOCOBALAMIN (VITAMIN B-12) 1,000 MCG TABLET PO SCH (09:02)
[2018-01-18] MEDS: FERROUS SULFATE 325 MG TABLET PO SCH (09:02)
[2018-01-18] MEDS: FLUTICASONE NASAL SPRAY 50 MCG/SPRY 120 SPRAY/16 GM NASL SCH (09:04)
[2018-01-18] MEDS: DONEPEZIL HCL PO SCH (17:14)
[2018-01-18] MEDS: MEMANTINE HCL PO SCH (17:14)
[2018-01-18] MEDS: DOCUSATE SODIUM 100 MG CAPSULE PO SCH (21:22)
[2018-01-19] MEDS: ACYCLOVIR SODIUM 500 MG in NORMAL SALINE 100 ML IV SCH ×3 (06:11→21:18)
--- NOTE | 2018-01-19 08:30 | PDOC PROGRESS REPORT ---
Subjective Progress Note for:: 01/19/18 Subjective:: Patient was admitted for encephalopathy and patient CSF culture is so far so all negative Patient currently alert awake very hard to hearing Denied any headache Denied any chest pain denies any shortness of breath Reason For Visit: UNSPECIFIED ENCEPHALOPATHY Physical Exam Vital Signs: Temp Pulse Resp BP Pulse Ox 98.3 F 65 18 125/70 94 01/19/18 07:25 01/19/18 07:25 01/19/18 07:25 01/19/18 07:25 01/19/18 07:25 Intake & Output 01/18/18 01/19/18 01/20/18 06:59 06:59 06:59 Intake Total 2641 1644 110 Output Total 1400 1500 Balance 1241 144 110 Weight 63 kg 65.4 kg General appearance: PRESENT: no acute distress, well-developed, well-nourished Head exam: PRESENT: atraumatic, normocephalic Eye exam: PRESENT: conjunctiva pink, EOMI, PERRLA. ABSENT: scleral icterus Ear exam: PRESENT: normal external ear exam Mouth exam: PRESENT: moist, tongue midline Neck exam: PRESENT: full ROM. ABSENT: carotid bruit, JVD, lymphadenopathy, thyromegaly Respiratory exam: PRESENT: clear to auscultation khadijah Cardiovascular exam: PRESENT: RRR. ABSENT: diastolic murmur, rubs, systolic murmur Pulses: PRESENT: normal dorsalis pedis pul, +2 pedal pulses bilateral Vascular exam: PRESENT: normal capillary refill GI/Abdominal exam: PRESENT: normal bowel sounds, soft. ABSENT: distended, guarding, mass, organolmegaly, rebound, tenderness Rectal exam: PRESENT: deferred Musculoskeletal exam: PRESENT: ambulatory Neurological exam: PRESENT: alert, awake, oriented to person, oriented to place , oriented to time, oriented to situation, CN II-XII grossly intact. ABSENT: motor sensory deficit Psychiatric exam: PRESENT: appropriate affect, normal mood. ABSENT: homicidal ideation, suicidal ideation Skin exam: PRESENT: dry, intact, warm. ABSENT: cyanosis, rash Results Laboratory Results: 01/16/18 09:03 01/16/18 09:03 01/13/18 17:25 Blood Blood Culture - Final NO GROWTH IN 5 DAYS 01/13/18 01/13/18 01/13/18 17:25 22:07 22:07 Creatine Kinase 48 L CK-MB (CK-2) 0.55 Troponin I 0.029 0.032 01/14/18 01/14/18 01/14/18 10:24 10:24 18:25 Creatine Kinase 50 L 49 L CK-MB (CK-2) 0.59 Troponin I 0.022 01/14/18 18:25 Creatine Kinase CK-MB (CK-2) 0.76 Troponin I 0.023 Impressions: Chest X-Ray 01/13/18 12:46 IMPRESSION: NO ACUTE RADIOGRAPHIC FINDING IN THE CHEST. Head CT 01/13/18 12:46 IMPRESSION: Involutional changes of aging with chronic microvascular ischemia. Subarachnoid cyst in the left middle cranial fossa is unchanged. No acute intracranial imaging findings. EVIDENCE OF ACUTE STROKE: NO. Abdomen/Pelvis CT 01/13/18 14:14 IMPRESSION: 1. Aortic aneurysms as described. 2. Cannot exclude mild pancreatitis. Correlate clinically. This is a subtle finding. 3. No urinary pathology is seen. Head MRI 01/13/18 14:48 IMPRESSION: ATROPHY AND CHRONIC MICRO-VASCULAR ISCHEMIC CHANGES. The previously described arachnoid cysts at the level of the middle cranial fossa on the left is stable. Other findings as noted above EVIDENCE OF ACUTE STROKE: NO. Guidance Fluoroscopy 01/14/18 00:00 IMPRESSION: Lumbar puncture under fluoroscopy. No immediate complication. Lumbar Puncture 01/14/18 21:34 IMPRESSION: Lumbar puncture under fluoroscopy. No immediate complication. Assessment & Plan - Diagnosis (1) Altered mental status, unspecified Qualifiers: Altered mental status type: unspecified Qualified Code(s): R41.82 - Altered mental status, unspecified Is this a current diagnosis for this admission?: Yes (2) Bilateral inguinal hernia without obstruction or gangrene Qualifiers: Recurrence: non-recurrent Qualified Code(s): K40.20 - Bilateral inguinal hernia, without obstruction or gangrene, not specified as recurrent Is this a current diagnosis for this admission?: Yes (3) Chronic kidney disease, stage 3 Is this a current diagnosis for this admission?: Yes (4) Encephalopathy, unspecified Is this a current diagnosis for this admission?: Yes (5) Atrial fibrillation Is this a current diagnosis for this admission?: Yes - Time Time Spent with patient: 15-24 minutes Medications reviewed and adjusted accordingly: Yes Anticipated discharge: Home Within: within 24 hours - Inpatient Certification Based on my medical assessment, after consideration of the patient's comorbidities, presenting symptoms, or acuity I expect that the services needed warrant INPATIENT care.: Yes I certify that my determination is in accordance with my understanding of Medicare's requirements for reasonable and necessary INPATIENT services [42 CFR 412.3e].: Yes Medical Necessity: Significant Comorbidiites Make Outpatient Treatment Too Risky , Need Close Monitoring Due to Risk of Patient Decompensation Post Hospital Care: D/C Research Spec Documentation - Plan Summary Plan Summary: Patient is currently doing much better pretty much all symptoms resolved Patient's viral culture is still pending but I do not think so any viral encephalitis Patient probably discharged tomorrow
[2018-01-19] MEDS: FLUTICASONE NASAL SPRAY 50 MCG/SPRY 120 SPRAY/16 GM NASL SCH (10:04)
[2018-01-19] MEDS: CETIRIZINE 10 MG TABLET PO SCH (10:14)
[2018-01-19] MEDS: CYANOCOBALAMIN (VITAMIN B-12) 1,000 MCG TABLET PO SCH (10:14)
[2018-01-19] MEDS: FERROUS SULFATE 325 MG TABLET PO SCH (10:14)
[2018-01-19] MEDS: POLYETHYLENE GLYCOL 3350 POWDER 17 GM/1 PACKET PO SCH (10:14)
[2018-01-19] MEDS: MEMANTINE HCL PO SCH (17:06)
[2018-01-19] MEDS: DONEPEZIL HCL PO SCH (17:06)
[2018-01-19] MEDS: DOCUSATE SODIUM 100 MG CAPSULE PO SCH (21:07)
[2018-01-20] MEDS: ACYCLOVIR SODIUM 500 MG in NORMAL SALINE 100 ML IV SCH ×2 (06:09→13:15)
[2018-01-20] MEDS: CYANOCOBALAMIN (VITAMIN B-12) 1,000 MCG TABLET PO SCH (10:01)
[2018-01-20] MEDS: CETIRIZINE 10 MG TABLET PO SCH (10:01)
[2018-01-20] MEDS: POLYETHYLENE GLYCOL 3350 POWDER 17 GM/1 PACKET PO SCH (10:01)
[2018-01-20] MEDS: FLUTICASONE NASAL SPRAY 50 MCG/SPRY 120 SPRAY/16 GM NASL SCH (10:01)
[2018-01-20] MEDS: FERROUS SULFATE 325 MG TABLET PO SCH (10:01)
[2018-01-20 16:26] VITALS: BP 105/60
[2018-01-20] MEDS: MEMANTINE HCL PO SCH (17:09)
[2018-01-20] MEDS: DONEPEZIL HCL PO SCH (17:09)
--- NOTE | 2018-01-20 20:16 | PDOC DISCHARGE SUMMARY ---
General - Admit/Disc Date/PCP Admission Date/Primary Care Provider: 01/13/18 16:16 ZENOBIA BOWSER MD Discharge Date: 01/20/18 - Discharge Diagnosis (1) Encephalopathy, unspecified Is this a current diagnosis for this admission?: Yes (2) Chronic kidney disease, stage 3 Is this a current diagnosis for this admission?: Yes (3) Dementia Is this a current diagnosis for this admission?: Yes (4) Right inguinal hernia Is this a current diagnosis for this admission?: Yes (5) Acute kidney injury Is this a current diagnosis for this admission?: Yes - Additional Information Resuscitation Status: Full Code Discharge Diet: As Tolerated, Regular Discharge Activity: Activity As Tolerated, Balance Activity w/Rest, Slowly Increase Activity, Supervised Activity Home Medications: Aspirin [Adult Low Dose Aspirin EC] 81 mg PO DAILY 01/14/18 Cetirizine HCl [Zyrtec 10 mg Tablet] 10 mg PO DAILY 01/14/18 Cyanocobalamin (Vitamin B-12) [Vitamin B-12 1000 mcg Tablet] 2,000 mcg PO DAILY 01/14/18 Ferrous Sulfate 324 mg PO DAILY 01/14/18 Fluticasone Propionate [Flonase Nasal [place] 50 Mcg/[place] 16 gm] 1 spray NASL DAILY 01/14/18 Hydrochlorothiazide [Hydrodiuril 50 mg Tablet] 50 mg PO DAILY 01/14/18 Memantine HCl/Donepezil HCl [Namzaric 28 mg-10 mg Capsule] 1 cap PO QPM History of Present Illness History of Present Illness: SHY INGRAM is a 82 year old male, He has a history of chronic kidney disease stage III,, dementia, he came to the office today with his brother for evaluation of acute confusion, excessive somnolence. The brother stated that he had altered mental status, he called 911, EMS came to the house to evaluate him, he was evaluated by EMS staff and the brother was advised that the patient should see me in the office this morning.When I saw him in the office this morning, he was very confused, there was no eye contact, he would not answer question, during conversation he was slumped to somnolence I was not sure what is going on with him, I called the rescue squad to transfer to the emergency room for further evaluation.Initially in the emergency room, CT head was done, this was negative for any acute pathology subsequently MRI head without contrast was done, it demonstrated atrophy and chronic microvascular ischemic changes. There was signal intensity lesions scattered throughout the white matter on FLAIR imaging with distribution suggesting microvascular ischemic changes. No evidence of hemorrhage or mass also found was a arachnoid cyst at the level of the middle cranial fossa. 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 I do not suspect any bacterial meningitis in this patient I felt he will empirically be treated with IV acyclovir at 10 mg /kg body weight every 8 hours a lumbar puncture will be obtained the morning under fluoroscopy to confirm my suspicion, PCR for herpes simplex be ordered Hospital Course Hospital Course: Patient was admitted for the management of unspecified encephalopathy, he presented with acute confusion with a background of dementia, no definitive explanation was found for the encephalopathy, fluoroscopy-guided lumbar puncture was done the analysis was negative, 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 He has a history of chronic kidney disease there was slight/mild prerenal acute kidney injury there was improvement with hydration. He also have right inguinal hernia he was seen in consultation by the surgeon it was felt that it was not necessary at this time to proceed with surgery this will be arranged outpatient Physical Exam Vital Signs: Temp Pulse Resp BP Pulse Ox 98.2 F 76 16 105/60 97 01/20/18 19:00 01/20/18 19:00 01/20/18 19:00 01/20/18 15:51 01/20/18 19:00 Intake & Output 01/19/18 01/20/18 01/21/18 06:59 06:59 06:59 Intake Total 1644 2521 694 Output Total 1500 1175 757 Balance 144 1346 -63 Weight 65.4 kg 70.2 kg General appearance: PRESENT: no acute distress Eye exam: PRESENT: PERRLA Ear exam: PRESENT: normal external ear exam Neck exam: PRESENT: full ROM Respiratory exam: PRESENT: clear to auscultation khadijah Cardiovascular exam: PRESENT: RRR, +S1, +S2 Pulses: PRESENT: normal dorsalis pedis pul, +2 pedal pulses bilateral Vascular exam: PRESENT: normal capillary refill GI/Abdominal exam: PRESENT: hernia, normal bowel sounds, soft Rectal exam: PRESENT: deferred Neurological exam: PRESENT: alert Psychiatric exam: PRESENT: appropriate affect, normal mood Skin exam: PRESENT: dry, intact, warm Results Laboratory Results: 01/16/18 09:03 01/16/18 09:03 01/13/18 01/13/18 01/13/18 17:25 22:07 22:07 Creatine Kinase 48 L CK-MB (CK-2) 0.55 Troponin I 0.029 0.032 01/14/18 01/14/18 01/14/18 10:24 10:24 18:25 Creatine Kinase 50 L 49 L CK-MB (CK-2) 0.59 Troponin I 0.022 01/14/18 18:25 Creatine Kinase CK-MB (CK-2) 0.76 Troponin I 0.023 Impressions: Chest X-Ray 01/13/18 12:46 IMPRESSION: NO ACUTE RADIOGRAPHIC FINDING IN THE CHEST. Head CT 01/13/18 12:46 IMPRESSION: Involutional changes of aging with chronic microvascular ischemia. Subarachnoid cyst in the left middle cranial fossa is unchanged. No acute intracranial imaging findings. EVIDENCE OF ACUTE STROKE: NO. Abdomen/Pelvis CT 01/13/18 14:14 IMPRESSION: 1. Aortic aneurysms as described. 2. Cannot exclude mild pancreatitis. Correlate clinically. This is a subtle finding. 3. No urinary pathology is seen. Head MRI 01/13/18 14:48 IMPRESSION: ATROPHY AND CHRONIC MICRO-VASCULAR ISCHEMIC CHANGES. The previously described arachnoid cysts at the level of the middle cranial fossa on the left is stable. Other findings as noted above EVIDENCE OF ACUTE STROKE: NO. Guidance Fluoroscopy 01/14/18 00:00 IMPRESSION: Lumbar puncture under fluoroscopy. No immediate complication. Lumbar Puncture 01/14/18 21:34 IMPRESSION: Lumbar puncture under fluoroscopy. No immediate complication. Qualifiers - * PATIENT BEING DISCHARGED WITH ANY OF THE FOLLOWING DIAGNOSIS: No
== END 2018-01-20 19:31 | disposition home health service (06) | DRG 71 ==
LOC: ER 12:23 → EH 16:16 → 3N 21:02
PROVIDERS: ADMIT Internal Medicine; ATTEND Internal Medicine
PROC: 009U3ZX Drainage of Spinal Canal, Percutaneous Approach, Diagnostic (ICD-10-PCS; principal; 2018-01-14)
PROC: B01BZZZ Fluoroscopy of Spinal Cord (ICD-10-PCS; 2018-01-14)
DX: G93.40 Encephalopathy, unspecified (principal); N17.9 Acute kidney failure, unspecified; N18.3 Chronic kidney disease, stage 3 (moderate); F03.90 Unspecified dementia, unspecified severity, without behavioral disturbance, psychotic disturbance, mood disturbance, and anxiety; E78.00 Pure hypercholesterolemia, unspecified; I12.9 Hypertensive chronic kidney disease with stage 1 through stage 4 chronic kidney disease, or unspecified chronic kidney disease; D63.1 Anemia in chronic kidney disease; Z60.2 Problems related to living alone; I48.91 Unspecified atrial fibrillation; K40.20 Bilateral inguinal hernia, without obstruction or gangrene, not specified as recurrent; I71.2 Thoracic aortic aneurysm, without rupture; Z79.899 Other long term (current) drug therapy; Z87.891 Personal history of nicotine dependence; Z79.82 Long term (current) use of aspirin
CPT/HCPCS: 36415; 62270; 70450; 70551; 71045; 74176; 77002; 80048; 80053; 80307; 81001; 82140; 82150; 82550; 82553; 82945; 82962; 83605; 83916; 84157; 84166; 84439; 84443; 84484; 85025; 85610; 85730; 87015; 87040; 87070; 87086; 87116; 87205; 87206; 87210; 87252; 87529; 89050; 93005; 93010; 99285; G8978-GP; G8979-GP; G8980-GP; J0133; J2060; J3490; J7030

== ENCOUNTER 2018-03-30 15:18 | Emergency (ER) | payer MEDICARE, MEDICAID ==
[2018-03-30] MEDS ORDERED: NORMAL SALINE 1000 ML 1,000 ML IV ONE (16:11)
[2018-03-30] MEDS ORDERED: LIDOCAINE 2% URO-JET 5 ML KIT MM ONE (16:11)
[2018-03-30 16:55] LABS: APPEARANCE,URINE CLOUDY; BILIRUBIN,URINE NEGATIVE (NEGATIVE); COLOR,URINE YELLOW; GLUCOSE, URINE NEGATIVE (NEGATIVE); KETONES,URINE NEGATIVE (NEGATIVE); LEUKOCYTE ESTERASE,URINE MODERATE (NEGATIVE); NITRITE,URINE NEGATIVE (NEGATIVE); PROTEIN,URINE NEGATIVE (NEGATIVE); URINE SPECIFIC GRAVITY 1.016
[2018-03-30 17:13] LABS: HEMOGLOBIN 12.4 g/dL (13.5-17.0); MEAN CORPUSCULAR HEMOGLOBIN 23.7 pg (27.0-33.4); MEAN CORPUSCULAR HGB CONC 31.8 g/dL (32.0-36.0); MEAN CORPUSCULAR VOLUME 74 fl (80-97); PLATELET COUNT 145 10^3/uL (150-450); RED BLOOD COUNT 5.24 10^6/uL (4.35-5.55); RED CELL DISTRIBUTION WIDTH 15.2 % (11.5-14.0); WHITE BLOOD COUNT 12.7 10^3/uL (4.0-10.5)
[2018-03-30 17:19] LABS: INTERNATIONAL RATION (INR) 0.97; PROTHROMBIN TIME 13.4 SEC (11.4-15.4)
[2018-03-30 17:26] LABS: ALANINE AMINOTRANSFERASE 28 U/L (21-72); ALBUMIN 4.1 g/dL (3.5-5.0); ALKALINE PHOSPHATASE 61 U/L (38-126); ANION GAP 11 (5-19); ASPARTATE AMINO TRANSFERASE 37 U/L (17-59); BILIRUBIN,DIRECT 0.2 mg/dL (0.0-0.4); BILIRUBIN,TOTAL 0.7 mg/dL (0.2-1.3); BLOOD UREA NITROGEN 17 mg/dL (7-20); CALCIUM 9.8 mg/dL (8.4-10.2); CARBON DIOXIDE 29 mmol/L (22-30); CHLORIDE 99 mmol/L (98-107); GLUCOSE 116 mg/dL (75-110); POTASSIUM 4.8 mmol/L (3.6-5.0); SODIUM 138.9 mmol/L (137-145); TOTAL PROTEIN 7.5 g/dL (6.3-8.2)
[2018-03-30 17:36] LABS: ABSOLUTE LYMPHOCYTES# (MANUAL) 0.5 10^3/uL (0.5-4.7); ABSOLUTE MONOCYTES # (MANUAL) 1.5 10^3/uL (0.1-1.4); ABSOLUTE NEUTROPHILS# (MANUAL) 10.7 10^3/uL (1.7-8.2); BASOPHILS % (MANUAL) 0 % (0-2); EOSINOPHILS % (MANUAL) 0 % (0-6); LYMPHOCYTES % (MANUAL) 4 % (13-45); MONOCYTES % (MANUAL) 12 % (3-13); SEGMENTED NEUTROPHILS % (MAN) 84 % (42-78); TOTAL CELLS COUNTED 100
[2018-03-30 17:37] LABS: ANISOCYTOSIS SLIGHT; HYPOCHROMASIA 1+; POIKILOCYTOSIS SLIGHT
[2018-03-30 17:38] LABS: OVALOCYTES SLIGHT; PLATELET COMMENT DECREASED
--- NOTE | 2018-03-30 17:53 | EKG REPORT ---
SEVERITY:- ABNORMAL ECG - SINUS RHYTHM PROBABLE INFERIOR INFARCT, AGE INDETERMINATE : Confirmed by: Frank Pena MD 30-Mar-2018 17:51:37
--- NOTE | 2018-03-30 18:03 | RADIOLOGY REPORT (SQ) ---
EXAM DESCRIPTION: U/S SCROTUM W/DOPPLER COMPLETED DATE/TIME: 03/30/2018 5:50 pm REASON FOR STUDY: pain to palpation in left testicle COMPARISON: None. TECHNIQUE: Static and realtime aguilera scale imaging of the scrotum and testes. Selected color Doppler and spectral images recorded to document blood flow. LIMITATIONS: None. FINDINGS: RIGHT: TESTICLE: Normal size. Normal background echotexture. Microlithiasis. Normal blood flow. No mass. EPIDIDYMIS: Normal. HYDROCELE OR VARICOCELE: Moderate hydrocele. HERNIA OR EXTRA-TESTICULAR MASS: No. OTHER: No other significant finding. LEFT: TESTICLE: Normal size. Normal echotexture. Microlithiasis. Normal blood flow. No mass. EPIDIDYMIS: Normal. Thinly septated epididymal cyst measuring 1.3 cm, likely a spermatocele. HYDROCELE OR VARICOCELE: Moderate hydrocele. HERNIA OR EXTRA-TESTICULAR MASS: No. OTHER: No other significant finding. IMPRESSION: 1. Moderate bilateral hydroceles. Incidental epididymal cyst of the left epididymis, l ikely a spermatocele. 2. Normal size of the bilateral testicles. Arterial and venous Doppler flow is identified. No mass or other acute abnormality. 3. Bilateral testicular microlithiasis is present without intratesticular mass or other worrisome fi ndings. In the absence of any other risk factors for testicular cancer (e.g., personal history of savita ticular cancer, a father or brother with testicular cancer, history of cryptorchidism or maldescent, testicular atrophy, or other risk factors), no further imaging or biochemical follow-up is necessary; all that is recommended is routine monthly testicular self-examination. However, if the patient has risk factors for testicular cancer, referral to a urologist for evaluation and determination of an op timal follow-up strategy is recommended. TECHNICAL DOCUMENTATION: JOB ID: [id number] [employer]- All Rights Reserved Reading location - IP/workstation name: [email or web address]
[2018-03-30 18:31] LABS: VENOUS BLOOD HCO3 29.4 mmol/L (20-32); VENOUS BLOOD PCO2 53.1 mmHg (35-63); VENOUS BLOOD PH 7.36 (7.30-7.42)
--- NOTE | 2018-03-30 18:56 | RADIOLOGY REPORT (SQ) ---
EXAM DESCRIPTION: CHEST SINGLE VIEW COMPLETED DATE/TIME: 03/30/2018 6:40 pm REASON FOR STUDY: shakiness COMPARISON: 01/13/2018 TECHNIQUE: Single frontal radiographic view of the chest acquired. NUMBER OF VIEWS: One view. LIMITATIONS: None. FINDINGS: LUNGS AND PLEURA: No pneumothorax. No consolidation or pleural effusion. Similar chronic interstitial markings. MEDIASTINUM AND HILAR STRUCTURES: Stable. HEART AND VASCULAR STRUCTURES: Stable. BONES: No acute findings. HARDWARE: None in the chest. OTHER: No other significant finding. IMPRESSION: NO ACUTE FINDINGS. TECHNICAL DOCUMENTATION: JOB ID: [id number] [place]-[id number] 2010 [employer]- All Rights Reserved Reading location - IP/workstation name: [email or web address]
--- NOTE | 2018-03-30 19:32 | RADIOLOGY REPORT (SQ) ---
EXAM DESCRIPTION: CT ABD/PELVIS WITH IV ONLY COMPLETED DATE/TIME: 03/30/2018 7:16 pm REASON FOR STUDY: vomiting, abd pain COMPARISON: None. TECHNIQUE: CT scan of the abdomen and pelvis performed using helical scanning technique with dynamic intravenous contrast injection. No oral contrast. Images reviewed with lung, soft tissue, and bone windows. Reconstructed coronal and sagittal MPR images reviewed. Delayed images for evaluation of the urinary system also acquired. All images stored on PACS. All CT scanners at this facility use dose modulation, iterative reconstruction, and/or weight based d osing when appropriate to reduce radiation dose to as low as reasonably achievable (ALARA). [facility]: Dose Right [facility]: CareDose [facility]: Dose Right [facility]: Teradose 4D [facility]: Blueroof 360 CONTRAST TYPE AND DOSE: contrast/concentration: Isovue 350.00 mg/ml; Total Contrast Delivered: 73.0 ml; Total Saline Delivered: 66.0 ml RENAL FUNCTION: GFR > 60. RADIATION DOSE: CT Rad equipment meets quality standard of care and radiation dose reduction techniq ues were employed. CTDIvol: 4.8 - 5.7 mGy. DLP: 512 mGy-cm.. LIMITATIONS: Motion artifact. FINDINGS: LOWER CHEST: Bibasilar scarring or atelectasis. Three-vessel coronary artery calcificatio ns. LIVER: Normal size. No masses. No dilated ducts. SPLEEN: Normal size. No focal lesions. PANCREAS: No masses. No significant calcifications. No adjacent inflammation or peripancreatic fluid collections. Pancreatic duct not dilated. GALLBLADDER: No identified stones by CT criteria. No inflammatory changes to suggest cholecystitis. ADRENAL GLANDS: No significant masses or asymmetry. RIGHT KIDNEY AND URETER: No solid masses. No significant calcifications. No hydronephrosis or hyd roureter. LEFT KIDNEY AND URETER: No solid masses. No significant calcifications. No hydronephrosis or hydr oureter. AORTA AND VESSELS: Severe mixed atherosclerosis. There is an infrarenal abdominal aortic aneurysm wi th a heavy burden of mural thrombus measuring 4.2 x 3.8 cm in maximum diameter. RETROPERITONEUM: No retroperitoneal adenopathy, hemorrhage or masses. BOWEL AND PERITONEAL CAVITY: No masses or inflammatory changes. No free fluid or peritoneal masses. APPENDIX: Not clearly visualized. PELVIS: No mass. No free fluid. Normal bladder. ABDOMINAL WALL: No masses. No hernias. BONES: No significant or acute findings. OTHER: No other significant finding. IMPRESSION: 1. Examination is limited by breath motion artifact. Within this limitation, no defini te CT findings to explain abdominal pain and vomiting. 2. The appendix is not clearly visualized in right lower quadrant. 3. Infrarenal abdominal aortic aneurysm measuring 4.2 cm. 4. Coronary artery disease. TECHNICAL DOCUMENTATION: JOB ID: [id number] Quality ID # [id number]: Final reports with documentation of one or more dose reduction techniques (e.g., Au tomated exposure control, adjustment of the mA and/or kV according to patient size, use of iterative reconstruction technique) 2010 [employer]- All Rights Reserved Reading location - IP/workstation name: [email or web address]
[2018-03-30] MEDS ORDERED: CEFTRIAXONE INJ 1000 MG VIAL IV ONE (19:51)
[2018-03-30 22:54] VITALS: BP 112/70
--- NOTE | 2018-04-03 10:26 | ER Document Report ---
Entered by ROB DOLAN SCRIBE 03/30/18 [id number] Acting as scribe for:DIDIER JALLOH DO ED GI/ - General Chief Complaint: Nausea/Vomiting Stated Complaint: VOMITING Time Seen by Provider: 03/30/18 15:58 Primary Care Provider: ZENOBIA BOWSER MD [Primary Care Provider] - Follow up in 3-5 days Information source: Patient, Relative - brother at bedside Notes: 83-year-old male that presents to the emergency department today after vomiting and "shakiness" which began prior to arrival today. Brother at bedside mentions that the patient is set up for surgery on May 02 for colorectal cancer. Patient has a known hernia which has been causing pain today. Brother at bedside states he believes he was shaky and vomited due to the pain caused by the hernia. Brother states he has been weaker than usual today. Patient denies any chest pain, shortness of breath, or fevers. TRAVEL OUTSIDE OF THE [place] IN LAST 30 DAYS: No - Related Data Allergies/Adverse Reactions: No Known Allergies Allergy (Unverified 05/07/11 10:18) Past Medical History - General Information source: Patient - Social History Smoking Status: Former Smoker Family History: Reviewed & Not Pertinent - Past Medical History Cardiac Medical History: Reports: Hx Hypercholesterolemia, Hx Hypertension - x 8 years Pulmonary Medical History: Reports: Hx Pneumonia - 20 years ago Malignancy Medical History: Reports Hx Colorectal Cancer - Immunizations Hx Diphtheria, Pertussis, Tetanus Vaccination: Yes - 2003 Hx Pneumococcal Vaccination: 02/25/10 Review of Systems - Review of Systems Constitutional: See HPI, Other - "shaky". denies: Fever EENT: No symptoms reported Cardiovascular: denies: Chest pain Respiratory: denies: Short of breath Gastrointestinal: See HPI, Vomiting Genitourinary: See HPI, Other - hernia Male Genitourinary: No symptoms reported Musculoskeletal: No symptoms reported Skin: No symptoms reported Hematologic/Lymphatic: No symptoms reported Neurological/Psychological: No symptoms reported -: Yes All other systems reviewed and negative Physical Exam - Vital signs Vitals: Temp Pulse Resp BP Pulse Ox 98.0 F 74 16 109/65 99 03/30/18 15:37 03/30/18 15:37 03/30/18 15:37 03/30/18 15:37 03/30/18 15:37 - Notes Notes: PHYSICAL EXAM GENERAL: Alert, interacts well. No acute distress. HEAD: Normocephalic, atraumatic. EYES: Pupils equal, round, and reactive to light. Extraocular movements intact. ENT: Oral mucosa moist, tongue midline. NECK: Full range of motion. Supple. Trachea midline. LUNGS: Clear to auscultation bilaterally, no wheezes, rales, or rhonchi. No respiratory distress. HEART: Regular rate and rhythm. No murmurs, gallops, or rubs. ABDOMEN: Soft. Non-distended. Bowel sounds present in all 4 quadrants. No guarding, rigidity, or rebound. Bulging area consistent with hernia in the right femoral area. This area is reducible, not incarcerated. Hernia extends into the right hemiscrotum. No erythema. This area bulges when straining after reduction but reduces without intervention. GENITOURINARY: Hernia extends into the right hemiscrotum. Left testicle tenderness with palpation as well with small effusion, no evidence of hernia in left hemiscrotum. EXTREMITIES: Moves all 4 extremities spontaneously. No edema, radial and d orsalis pedis pulses 2/4 bilaterally. No cyanosis. NEUROLOGICAL: Alert and oriented x3. Normal speech. PSYCH: Normal affect, normal mood. SKIN: Warm and dry. Course - Re-evaluation Re-evalutation: 03/30/18 18:15 On physical examination patient had an obvious hernia, after a few minutes of direct pressure and manipulation I was able to reduce the right-sided hernia, persistent tenderness to palpation of his bilateral testicles after the hernia was reduced. 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 No evidence of torsion or infection. CBC shows leukocytosis of 12.7, mild anemia with hemoglobin 12.4, platelets low at 145, coags normal, kidney function stable with creatinine 1.44, lactic acid is elevated at 2.7, patient does have moderate leukocyte esterase in the urine. Given the patient's elevated lactic acid and leukocytosis, his tremulousness, age and vomiting I think it is prudent to get a CT scan of the abdomen and pelvis. Patient is quite resistant to the idea of drinking oral contrast so this will be performed with IV contrast only. 03/30/18 19:37 CT scan of the abdomen pelvis does not reveal any acute infection, the appendix is not well visualized. Hernia is well reduced. Mild urinary tract infection will be treated with Keflex, culture has been sent. Patient does not meet sepsis criteria at this time however I discussed the abnormal lactic acid with his brother and the brother would like to repeat the lactic acid to ensure normalizes. I am agreeable to this plan. Discussed it with Dr. Verdugo who will recheck the lactic acid level and if it normalizes patient will be discharged to home with Keflex otherwise he will reevaluate the patient. 04/03/18 10:25 Repeat lactic acid is normal. Patient was discharged home. - Vital Signs Vital signs: Temp Pulse Resp BP Pulse Ox 98.4 F 78 16 112/70 98 03/30/18 22:10 03/30/18 22:10 03/30/18 22:10 03/30/18 22:10 03/30/18 22:10 - Laboratory Result Diagrams: 03/30/18 17:01 03/30/18 17:01 Laboratory results interpreted by me: 03/30/18 03/30/18 03/30/18 16:40 17:01 17:01 WBC 12.7 H Hgb 12.4 L MCV 74 L MCH 23.7 L MCHC 31.8 L RDW 15.2 H Plt Count 145 L Seg Neuts % (Manual) 84 H Lymphocytes % (Manual) 4 L Abs Neuts (Manual) 10.7 H Abs Monocytes (Manual) 1.5 H Creatinine 1.44 H Est GFR ( Amer) 56 L Est GFR (Non-Af Amer) 47 L Glucose 116 H Lactic Acid Urine Urobilinogen 2.0 H Ur Leukocyte Esterase MODERATE H 03/30/18 17:01 WBC Hgb MCV MCH MCHC RDW Plt Count Seg Neuts % (Manual) Lymphocytes % (Manual) Abs Neuts (Manual) Abs Monocytes (Manual) Creatinine Est GFR ( Amer) Est GFR (Non-Af Amer) Glucose Lactic Acid 2.7 H Urine Urobilinogen Ur Leukocyte Esterase - EKG Interpretation by Me Additional EKG results interpreted by me: 03/30/18 19:38 EKG shows sinus rhythm rate of 76, normal axis, normal intervals, no ST segment elevations or depressions, isolated nonspecific T wave inversions in V1 and V2 per my interpretation. Discharge - Discharge Clinical Impression: Right inguinal hernia, Chronic kidney disease, stage 3, Hydrocele, bilateral UTI (urinary tract infection) Qualifiers: Urinary tract infection type: acute cystitis Hematuria presence: with hematuria Qualified Code(s): N30.01 - Acute cystitis with hematuria Condition: Stable Disposition: HOME, SELF-CARE Additional Instructions: Today your workup shows that you do have a urinary tract infection. This will be treated with antibiotics. Please take the Keflex as directed until it is gone. You also have some fluid around the testicles. This fluid could be coming from the hernias that you have. There is no evidence of infection around the testicles at this time. There is no need for surgery at this time. Today your hernia was able to be easily reduced. If you cannot reduce it on your own and is causing you pain please return to the emergency department. There is no sign of infection within your abdomen today. Prescriptions: Cephalexin Monohydrate [Keflex 500 mg Capsule] 500 mg PO Q6H 7 Days capsule Referrals: ZENOBIA BOWSER MD [Primary Care Provider] - Follow up in 3-5 days Scribe Attestation: 03/30/18 19:41 I personally performed the services described in the documentation, reviewed and edited the documentation which was dictated to the scribe in my presence, and it accurately records my words and actions. I personally performed the services described in the documentation, reviewed and edited the documentation which was dictated to the scribe in my presence, and it accurately records my words and actions.
== END 2018-03-30 22:20 | disposition home or self-care (01) ==
LOC: ER 15:18
DX: N30.01 Acute cystitis with hematuria (principal); R11.2 Nausea with vomiting, unspecified; N43.3 Hydrocele, unspecified; K40.90 Unilateral inguinal hernia, without obstruction or gangrene, not specified as recurrent; C18.9 Malignant neoplasm of colon, unspecified; I12.9 Hypertensive chronic kidney disease with stage 1 through stage 4 chronic kidney disease, or unspecified chronic kidney disease; N18.3 Chronic kidney disease, stage 3 (moderate); E78.00 Pure hypercholesterolemia, unspecified; I10 Essential (primary) hypertension; N50.812 Left testicular pain; N50.811 Right testicular pain; Z87.891 Personal history of nicotine dependence
CPT/HCPCS: 93005; 36415; 87040; 87086; 82962; 85025; 85610; 87088; 80053; 81001; 87186; 82803; 83605; 71045; 76870; 93976; 74177; 93010; J0696; J7030; 96361; 96365; 99284

== ENCOUNTER 2018-04-21 10:43 | Observation (INO) | payer MEDICARE, MEDICAID ==
[2018-04-21] MEDS ORDERED: NORMAL SALINE 1000 ML 1,000 ML IV ONE (12:42)
--- NOTE | 2018-04-21 12:52 | ER Document Report ---
ED General - General Chief Complaint: Weakness Stated Complaint: WEAKNESS Time Seen by Provider: 04/21/18 12:40 Mode of Arrival: Ambulatory Information source: Patient, Relative, [facility] Records Notes: 83-year-old male with hypertension, hyperlipidemia, dementia presents via private vehicle from his primary care physician's office Dr. Nolen for admission. Patient and brother reports a recent 20 pound weight loss over the last 2-3 weeks. Patient has not been eating and drinking normally. Patient also reports several days of diarrhea and 1 day of nausea and vomiting. Patient denies any black or bloody stools. He also reports recent antibiotic use for a urinary tract infection. Patient also complaining of dizziness that he describes as the room spinning. He states that for the last few days he has had difficulty getting out of bed. TRAVEL OUTSIDE OF THE [place] IN LAST 30 DAYS: No - HPI Onset: Other Onset/Duration: Gradual, Intermittent Quality of pain: No pain Severity: None Associated symptoms: Diarrhea, Nausea, Vomiting, Weakness, Other - Weight loss, dizziness Exacerbated by: Denies Relieved by: Denies Similar symptoms previously: Yes Recently seen / treated by doctor: Yes - Related Data Allergies/Adverse Reactions: No Known Allergies Allergy (Unverified 05/07/11 10:18) Past Medical History - General Information source: Patient, Relative, [facility] Records - Social History Smoking Status: Former Smoker Frequency of alcohol use: None Drug Abuse: None Lives with: Alone Family History: Reviewed & Not Pertinent Patient has suicidal ideation: No Patient has homicidal ideation: No - Past Medical History Cardiac Medical History: Reports: Hx Hypercholesterolemia, Hx Hypertension - x 8 years Denies: Hx Coronary Artery Disease, Hx Heart Attack Pulmonary Medical History: Reports: Hx Pneumonia - 20 years ago Denies: Hx Asthma, Hx Bronchitis, Hx COPD Neurological Medical History: Denies: Hx Cerebrovascular Accident, Hx Seizures Renal/ Medical History: Denies: Hx Peritoneal Dialysis Malignancy Medical History: Reports Hx Colorectal Cancer Musculoskeletal Medical History: Denies Hx Arthritis Psychiatric Medical History: Denies: Hx Depression Past Surgical History: Denies: Hx Pacemaker - Immunizations Hx Diphtheria, Pertussis, Tetanus Vaccination: Yes - 2003 Hx Pneumococcal Vaccination: 02/25/10 Review of Systems - Review of Systems Constitutional: Weakness, Weight loss EENT: denies: Blurred vision Cardiovascular: Dizziness, Lightheaded. denies: Chest pain Respiratory: denies: Cough, Short of breath Gastrointestinal: Diarrhea, Nausea, Vomiting, Black stools - Secondary to iron use Genitourinary: Urgency Musculoskeletal: Back pain Skin: denies: Rash Hematologic/Lymphatic: No symptoms reported Neurological/Psychological: Dementia -: Yes All other systems reviewed and negative Physical Exam - Vital signs Vitals: Temp Pulse Resp BP Pulse Ox 97.3 F 78 18 123/87 H 97 04/21/18 10:47 04/21/18 10:47 04/21/18 10:47 04/21/18 10:47 04/21/18 10:47 - Notes Notes: PHYSICAL EXAMINATION: GENERAL: Frail, cachectic HEAD: Atraumatic, normocephalic. EYES: Pupils equal round and reactive to light, extraocular movements intact, sclera anicteric, conjunctiva are normal. ENT: Nares patent, oropharynx clear without exudates. Dry mucous membranes. NECK: Normal range of motion, supple without lymphadenopathy LUNGS: Breath sounds clear to auscultation bilaterally and equal. No wheezes rales or rhonchi. HEART: Regular rate and rhythm without murmurs ABDOMEN: Soft, nontender, nondistended abdomen. No guarding, no rebound. No masses appreciated. Musculoskeletal: Normal range of motion, no pitting or edema. No cyanosis. NEUROLOGICAL: Cranial nerves grossly intact. Normal speech, normal gait. Normal sensory, motor exams PSYCH: Normal mood, normal affect. SKIN: Skin tenting Course - Re-evaluation Re-evalutation: Chest X-Ray 04/21/18 00:00 IMPRESSION: No evidence of acute cardiopulmonary disease. 04/21/18 14:02 83-year-old male presents for a direct admission to from his primary care physician office Dr. Nolen due to dehydration, sudden weight loss, decreased p.o. intake and chronic kidney disease. Patient does report several days of watery diarrhea, dizziness. Admission orders placed. Patient awaiting a bed. 04/21/18 20:13 - Vital Signs Vital signs: Temp Pulse Resp BP Pulse Ox 97.5 F 62 18 121/73 97 04/21/18 17:19 04/21/18 17:19 04/21/18 10:47 04/21/18 17:19 04/21/18 17:19 - Laboratory Result Diagrams: 04/21/18 17:57 04/21/18 17:57 - Diagnostic Test Radiology reviewed: Image reviewed Discharge - Discharge Clinical Impression: Weight loss, Dizziness, Chronic kidney disease, stage 3, Dehydration Dementia Qualifiers: Dementia type: unspecified type Dementia behavioral disturbance: without behavioral disturbance Qualified Code(s): F03.90 - Unspecified dementia without behavioral disturbance Condition: Good Disposition: ADMITTED INPATIENT Admitting Provider: Tamanna Unit Admitted: Telemetry
[2018-04-21] MEDS ORDERED: MECLIZINE HCL 12.5 MG TABLET PO ONE (12:53)
[2018-04-21 18:20] LABS: ABSOLUTE BASOPHILS # (AUTO) 0.1 10^3/uL (0.0-0.2); ABSOLUTE EOSINOPHILS # (AUTO) 0.2 10^3/uL (0.0-0.6); ABSOLUTE LYMPHOCYTES (AUTO) 1.9 10^3/uL (0.5-4.7); ABSOLUTE MONOCYTES (AUTO) 0.4 10^3/uL (0.1-1.4); ABSOLUTE NEUT (AUTO) 2.8 10^3/uL (1.7-8.2); EOSINOPHILS % (AUTO) 3.4 % (0-6); HEMATOCRIT 39.8 % (37.9-51.0); HEMOGLOBIN 12.9 g/dL (13.5-17.0); LYMPHOCYTES % (AUTO) 36.3 % (13-45); MEAN CORPUSCULAR HEMOGLOBIN 23.8 pg (27.0-33.4); MEAN CORPUSCULAR HGB CONC 32.4 g/dL (32.0-36.0); MEAN CORPUSCULAR VOLUME 74 fl (80-97); MONOCYTES % (AUTO) 6.6 % (3-13); PLATELET COUNT 165 10^3/uL (150-450); RED CELL DISTRIBUTION WIDTH 15.2 % (11.5-14.0); SEGMENTED NEUTROPHILS % (AUTO) 52.7 % (42-78); TOTAL CELLS COUNTED % (AUTO) 100 %; WHITE BLOOD COUNT 5.3 10^3/uL (4.0-10.5)
[2018-04-21 18:31] LABS: ALANINE AMINOTRANSFERASE 15 U/L (21-72); ALBUMIN 4.3 g/dL (3.5-5.0); ALKALINE PHOSPHATASE 76 U/L (38-126); ANION GAP 13 (5-19); ASPARTATE AMINO TRANSFERASE 27 U/L (17-59); BILIRUBIN,DIRECT 0.3 mg/dL (0.0-0.4); BILIRUBIN,TOTAL 0.4 mg/dL (0.2-1.3); BLOOD UREA NITROGEN 29 mg/dL (7-20); CALCIUM 10.3 mg/dL (8.4-10.2); CARBON DIOXIDE 31 mmol/L (22-30); CHLORIDE 98 mmol/L (98-107); GLUCOSE 130 mg/dL (75-110); POTASSIUM 4.3 mmol/L (3.6-5.0); SODIUM 142.2 mmol/L (137-145); TOTAL PROTEIN 8.1 g/dL (6.3-8.2)
--- NOTE | 2018-04-21 20:12 | RADIOLOGY REPORT (SQ) ---
XR CHEST 1 VIEW HISTORY: Admission. Chest pain. COMPARISON: 03/30/2018 FINDINGS: The heart size is normal. The lungs are clear. No pleural effusions or pneumothorax is seen. No acute bony findings. IMPRESSION: No evidence of acute cardiopulmonary disease.
[2018-04-21] MEDS: NORMAL SALINE 1000 ML 1,000 ML IV PRN (20:30)
--- NOTE | 2018-04-21 20:33 | PDOC H&P ---
History of Present Illness Admission Date/PCP: 04/21/18 13:31 ZENOBIA BOWSER MD History of Present Illness: SHY INGRAM JR is a 83 year old male, He has a history of underlying de mentia, infrarenal abdominal aortic aneurysm, he has a large polyp in the colon that is suspicious for malignant tubular adenoma patient is electively scheduled for hemicolectomy on May 02, [address] Holloway the general surgeon in this hospital. He came to the office today with his brother because of decreased oral intake ,he lost 20 pounds weight in a span of 2 weeks, The brother was concerned about the decline in his health especially the weight loss, the diminished intake both food and fluid. In the office he was evaluated he was examined there was evidence of loss of skin turgor ,dry oral mucosa overall poor physical health. I felt patient needed to be admitted to the hospital for further evaluation and management and probably consult with a surgeon for colectomy on this admission. There was no bed available, on the advice of the nursing underground supervisor patient was referred to the ER, he was seen again by the ER providers and ultimately admitted to the hospital Past Medical History Cardiac Medical History: Reports: Hyperlipidema, Hypertension - x 8 years, Other - Abdominal aortic aneurysm measures 4.2 cm by 3.8 with mural thrombus Pulmonary Medical History: Reports: Pneumonia - 20 years ago Neurological Medical History: Denies: Seizures Hematology: Reports: Anemia - currently Social History Lives with: Alone Smoking Status: Former Smoker Frequency of Alcohol Use: None Hx Recreational Drug Use: No Drugs: None Hx Prescription Drug Abuse: No Family History Family History: Reviewed & Not Pertinent Parental Family History Reviewed: Yes Children Family History Reviewed: Yes Sibling(s) Family History Reviewed.: Yes Medication/Allergy Home Medications: Aspirin [Adult Low Dose Aspirin EC] 81 mg PO DAILY 01/14/18 Cetirizine HCl [Zyrtec 10 mg Tablet] 10 mg PO DAILY 01/14/18 Cyanocobalamin (Vitamin B-12) [Vitamin B-12 1000 mcg Tablet] 2,000 mcg PO DAILY 01/14/18 Ferrous Sulfate 324 mg PO DAILY 01/14/18 Fluticasone Propionate [Flonase Nasal [place] 50 Mcg/[place] 16 gm] 1 spray NASL DAILY 01/14/18 Hydrochlorothiazide [Hydrodiuril 50 mg Tablet] 50 mg PO DAILY 01/14/18 Memantine HCl/Donepezil HCl [Namzaric 28 mg-10 mg Capsule] 1 cap PO QPM 01/14/18 Allergies/Adverse Reactions: No Known Allergies Allergy (Unverified 05/07/11 10:18) Review of Systems Constitutional: PRESENT: anorexia, weight loss Eyes: ABSENT: visual disturbances Ears: ABSENT: hearing changes Cardiovascular: ABSENT: chest pain, dyspnea on exertion, edema, orthropnea, palpitations Respiratory: ABSENT: cough, hemoptysis Gastrointestinal: PRESENT: nausea Genitourinary: ABSENT: dysuria, hematuria Musculoskeletal: ABSENT: joint swelling Integumentary: ABSENT: rash, wounds Neurological: ABSENT: abnormal gait, abnormal speech, confusion, dizziness, focal weakness, syncope Psychiatric: ABSENT: anxiety, depression, homidical ideation, suicidal ideation Endocrine: ABSENT: cold intolerance, heat intolerance, menstrual abnormalities, polydipsia, polyuria Hematologic/Lymphatic: ABSENT: easy bleeding, easy bruising, lymphadenopathy Physical Exam Vital Signs: Temp Pulse Resp BP Pulse Ox 97.5 F 89 16 149/58 H 88 L 04/21/18 19:46 04/21/18 19:46 04/21/18 19:46 04/21/18 19:46 04/21/18 19:46 Intake & Output 04/20/18 04/21/18 04/22/18 06:59 06:59 06:59 Weight 55.9 kg General appearance: PRESENT: other Head exam: PRESENT: atraumatic, normocephalic Eye exam: PRESENT: conjunctiva pink, EOMI, PERRLA Ear exam: PRESENT: normal external ear exam Mouth exam: PRESENT: moist, tongue midline Neck exam: PRESENT: full ROM Respiratory exam: PRESENT: clear to auscultation khadijah Cardiovascular exam: PRESENT: RRR, +S1, +S2 Pulses: PRESENT: normal dorsalis pedis pul, +2 pedal pulses bilateral Vascular exam: PRESENT: normal capillary refill Rectal exam: PRESENT: deferred Neurological exam: PRESENT: alert Psychiatric exam: PRESENT: appropriate affect, normal mood Skin exam: PRESENT: other - Loss of skin turgor Results Laboratory Results: 04/21/18 17:57 04/21/18 17:57 04/21/18 04/21/18 17:57 17:57 WBC 5.3 RBC 5.40 Hgb 12.9 L Hct 39.8 MCV 74 L MCH 23.8 L MCHC 32.4 RDW 15.2 H Plt Count 165 Seg Neutrophils % 52.7 Lymphocytes % 36.3 Monocytes % 6.6 Eosinophils % 3.4 Basophils % 1.0 Absolute Neutrophils 2.8 Absolute Lymphocytes 1.9 Absolute Monocytes 0.4 Absolute Eosinophils 0.2 Absolute Basophils 0.1 Sodium 142.2 Potassium 4.3 Chloride 98 Carbon Dioxide 31 H Anion Gap 13 BUN 29 H Creatinine 1.83 H Est GFR ( Amer) 43 L Est GFR (Non-Af Amer) 35 L Glucose 130 H Calcium 10.3 H Total Bilirubin 0.4 AST 27 ALT 15 L Alkaline Phosphatase 76 Total Protein 8.1 Albumin 4.3 Impressions: Chest X-Ray 04/21/18 00:00 IMPRESSION: No evidence of acute cardiopulmonary disease. Assessment & Plan - Diagnosis (1) Dehydration Is this a current diagnosis for this admission?: Yes Plan: Patient is admitted for hydration (2) Weight loss Is this a current diagnosis for this admission?: Yes Plan: The differential diagnosis includes malignant neoplasm, he has a history of a large adenomatous polyp in the colon suspicious for malignant colonic neoplasm, I will consult with the surgeon for possible surgery on this admission (3) Abdominal aortic aneurysm (AAA) 3.0 cm to 5.5 cm in diameter in male Is this a current diagnosis for this admission?: Yes (4) Dementia Qualifiers: Dementia type: unspecified type Dementia behavioral disturbance: without behavioral disturbance Qualified Code(s): F03.90 - Unspecified dementia without behavioral disturbance Is this a current diagnosis for this admission?: Yes (5) Right inguinal hernia Is this a current diagnosis for this admission?: Yes
[2018-04-22] MEDS: NORMAL SALINE 1000 ML 1,000 ML IV PRN (05:47)
[2018-04-22 07:28] LABS: APPEARANCE,URINE CLOUDY; BILIRUBIN,URINE NEGATIVE (NEGATIVE); COLOR,URINE YELLOW; GLUCOSE, URINE NEGATIVE (NEGATIVE); KETONES,URINE NEGATIVE (NEGATIVE); LEUKOCYTE ESTERASE,URINE LARGE (NEGATIVE); NITRITE,URINE NEGATIVE (NEGATIVE); PROTEIN,URINE NEGATIVE (NEGATIVE); URINE SPECIFIC GRAVITY 1.014; UROBILINOGEN,URINE NEGATIVE mg/dL (<2.0)
--- NOTE | 2018-04-22 19:41 | PDOC PROGRESS REPORT ---
Subjective Progress Note for:: 04/22/18 Subjective:: Patient was seen by the bedside, Reason For Visit: SEVERE WEAKNESS, DEHYDRATION, DEMENTIA, CKD Physical Exam Vital Signs: Temp Pulse Resp BP Pulse Ox 98.0 F 64 16 117/68 99 04/22/18 15:52 04/22/18 15:52 04/22/18 15:52 04/22/18 15:52 04/22/18 15:52 Intake & Output 04/21/18 04/22/18 04/23/18 06:59 06:59 06:59 Intake Total 1168 236 Balance 1168 236 Weight 55.9 kg 55.9 kg General appearance: PRESENT: no acute distress Eye exam: PRESENT: PERRLA Respiratory exam: PRESENT: clear to auscultation khadijah Cardiovascular exam: PRESENT: +S1, +S2 GI/Abdominal exam: PRESENT: soft Neurological exam: PRESENT: alert Results Laboratory Results: 04/21/18 17:57 04/21/18 17:57 04/22/18 04/22/18 06:50 09:30 PTH Intact 62.3 Urine Color YELLOW Urine Appearance CLOUDY Urine pH 5.0 Ur Specific [place] 1.014 Urine Protein NEGATIVE Urine Glucose (UA) NEGATIVE Urine Ketones NEGATIVE Urine Blood SMALL H Urine Nitrite NEGATIVE Ur Leukocyte Esterase LARGE H Urine WBC (Auto) >182 Urine RBC (Auto) 4 Impressions: Chest X-Ray 04/21/18 00:00 IMPRESSION: No evidence of acute cardiopulmonary disease. Assessment & Plan - Diagnosis (1) Dehydration Is this a current diagnosis for this admission?: Yes (2) Weight loss Is this a current diagnosis for this admission?: Yes (3) Abdominal aortic aneurysm (AAA) 3.0 cm to 5.5 cm in diameter in male Is this a current diagnosis for this admission?: Yes (4) Dementia Qualifiers: Dementia type: unspecified type Dementia behavioral disturbance: without behavioral disturbance Qualified Code(s): F03.90 - Unspecified dementia without behavioral disturbance Is this a current diagnosis for this admission?: Yes (5) Right inguinal hernia Is this a current diagnosis for this admission?: Yes - Plan Summary Plan Summary: Continue treatment
[2018-04-22] MEDS ORDERED: (PENDING PHARMACY ID) (Memantine Hcl/Donepezil Hcl [Namzaric 28 Mg-10 Mg Capsule] 1 CAP) PO SCH (19:45)
--- NOTE | 2018-04-22 20:00 | PDOC CONSULTATION ---
History of Present Illness Admission Date/PCP: 04/21/18 13:31 ZENOBIA BOWSER MD Patient complains of: Colon polyps History of Present Illness: SHY INGRAM JR is a 83 year old male with large colon polyps noted on colonoscopy several months ago. Patient is pending partial colectomy in a couple of weeks. Patient was apparently noted by his brother with evidence of failure to thrive with weight loss and diminished p.o. intake. Patient himself denies any nausea or vomiting and he states that he has been eating. He denies any abdominal pain and denies any abdominal bloating. He does suffer from chronic constipation however. Patient was noted with fair p.o. intake as per nursing staff today. Past Medical History Cardiac Medical History: Reports: Hyperlipidema, Hypertension - x 8 years, Other - Abdominal aortic aneurysm measures 4.2 cm by 3.8 with mural thrombus Denies: Coronary Artery Disease, Myocardial Infarction Pulmonary Medical History: Reports: Pneumonia - 20 years ago Denies: Asthma, Bronchitis, Chronic Obstructive Pulmonary Disease (COPD) Neurological Medical History: Denies: Seizures Malignancy Medical History: Reports: Other - Colon polyps Musculoskeltal Medical History: Denies: Arthritis Psychiatric Medical History: Denies: Depression Hematology: Reports: Anemia - currently Past Surgical History Past Surgical History: Denies: Pacemaker Social History Lives with: Alone Smoking Status: Former Smoker Pipes Per Day: 2 Number of Years Smokin Frequency of Alcohol Use: None Hx Recreational Drug Use: No Drugs: None Hx Prescription Drug Abuse: No Family History Family History: Reviewed & Not Pertinent Parental Family History Reviewed: No Children Family History Reviewed: No Sibling(s) Family History Reviewed.: No Medication/Allergy Home Medications: Aspirin [Adult Low Dose Aspirin EC] 81 mg PO DAILY 01/14/18 Cetirizine HCl [Zyrtec 10 mg Tablet] 10 mg PO DAILY 01/14/18 Cyanocobalamin (Vitamin B-12) [Vitamin B-12 1000 mcg Tablet] 2,000 mcg PO DAILY 01/14/18 Ferrous Sulfate 324 mg PO DAILY 01/14/18 Fluticasone Propionate [Flonase Nasal [place] 50 Mcg/[place] 16 gm] 1 spray NASL DAILY 01/14/18 Hydrochlorothiazide [Hydrodiuril 50 mg Tablet] 50 mg PO DAILY 01/14/18 Memantine HCl/Donepezil HCl [Namzaric 28 mg-10 mg Capsule] 1 cap PO QPM 01/14/18 Allergies/Adverse Reactions: No Known Allergies Allergy (Unverified 05/07/11 10:18) Physical Exam Vital Signs: Temp Pulse Resp BP Pulse Ox 98.0 F 64 16 117/68 99 04/22/18 15:52 04/22/18 15:52 04/22/18 15:52 04/22/18 15:52 04/22/18 15:52 Intake & Output 04/21/18 04/22/18 04/23/18 06:59 06:59 06:59 Intake Total 1168 236 Balance 1168 236 Weight 55.9 kg 55.9 kg General appearance: PRESENT: no acute distress, cooperative, thin Eye exam: PRESENT: conjunctiva pink Respiratory exam: PRESENT: clear to auscultation khadijah Cardiovascular exam: PRESENT: RRR GI/Abdominal exam: PRESENT: other - Soft, nondistended, nontender to palpation. Patient with a moderate size right inguinal hernia that is easily reducible. With no tenderness. Neurological exam: PRESENT: alert, awake Psychiatric exam: PRESENT: appropriate affect Skin exam: PRESENT: warm Results Laboratory Results: 04/21/18 17:57 04/21/18 17:57 04/22/18 04/22/18 06:50 09:30 PTH Intact 62.3 Urine Color YELLOW Urine Appearance CLOUDY Urine pH 5.0 Ur Specific [place] 1.014 Urine Protein NEGATIVE Urine Glucose (UA) NEGATIVE Urine Ketones NEGATIVE Urine Blood SMALL H Urine Nitrite NEGATIVE Ur Leukocyte Esterase LARGE H Urine WBC (Auto) >182 Urine RBC (Auto) 4 Impressions: Chest X-Ray 04/21/18 00:00 IMPRESSION: No evidence of acute cardiopulmonary disease. Assessment & Plan - Diagnosis (1) Colon polyps Qualifiers: Colon location: ascending Is this a current diagnosis for this admission?: Yes Plan: Pending partial colon resection in a couple weeks. I have discussed his colonoscopy findings with his endoscopist (Dr. Dozier) who noted that these polyps were large but unlikely to have progressed to the point of causing obstruction or weight loss. Patient does have a urinary tract infection and perhaps that is the reason for his failure to thrive. His abdomen is very soft and non-distended and he denies any nausea or vomiting. Recommend treatment of his urinary tract infection and monitor his nutritional intake during his hospital stay. If he has good nutritional intake, recommend discharge patient home with Ensure supplementation to tune up his nutritional status for his upcoming surgery. Surgical service will sign off. Please reconsult if there is any concerns.
[2018-04-22 20:12] LABS: ABSOLUTE EOSINOPHILS # (AUTO) 0.3 10^3/uL (0.0-0.6); ABSOLUTE LYMPHOCYTES (AUTO) 1.8 10^3/uL (0.5-4.7); ABSOLUTE MONOCYTES (AUTO) 0.5 10^3/uL (0.1-1.4); ABSOLUTE NEUT (AUTO) 2.3 10^3/uL (1.7-8.2); BASOPHILS % (AUTO) 0.8 % (0-2); EOSINOPHILS % (AUTO) 5.2 % (0-6); HEMATOCRIT 35.4 % (37.9-51.0); HEMOGLOBIN 11.5 g/dL (13.5-17.0); LYMPHOCYTES % (AUTO) 37.4 % (13-45); MEAN CORPUSCULAR HEMOGLOBIN 23.6 pg (27.0-33.4); MEAN CORPUSCULAR HGB CONC 32.6 g/dL (32.0-36.0); MEAN CORPUSCULAR VOLUME 72 fl (80-97); MONOCYTES % (AUTO) 9.2 % (3-13); PLATELET COUNT 154 10^3/uL (150-450); RED BLOOD COUNT 4.89 10^6/uL (4.35-5.55); RED CELL DISTRIBUTION WIDTH 14.8 % (11.5-14.0); SEGMENTED NEUTROPHILS % (AUTO) 47.4 % (42-78); TOTAL CELLS COUNTED % (AUTO) 100 %; WHITE BLOOD COUNT 4.9 10^3/uL (4.0-10.5)
[2018-04-22 20:29] LABS: ALANINE AMINOTRANSFERASE 21 U/L (21-72); ALBUMIN 3.4 g/dL (3.5-5.0); ALKALINE PHOSPHATASE 62 U/L (38-126); ANION GAP 7 (5-19); ASPARTATE AMINO TRANSFERASE 31 U/L (17-59); BILIRUBIN,DIRECT 0.2 mg/dL (0.0-0.4); BILIRUBIN,TOTAL 0.2 mg/dL (0.2-1.3); BLOOD UREA NITROGEN 21 mg/dL (7-20); CALCIUM 9.5 mg/dL (8.4-10.2); CARBON DIOXIDE 33 mmol/L (22-30); CHLORIDE 101 mmol/L (98-107); GLUCOSE 99 mg/dL (75-110); POTASSIUM 4.4 mmol/L (3.6-5.0); SODIUM 140.6 mmol/L (137-145); TOTAL PROTEIN 6.8 g/dL (6.3-8.2)
[2018-04-23 05:34] LABS: ABSOLUTE BASOPHILS # (AUTO) 0.1 10^3/uL (0.0-0.2); ABSOLUTE EOSINOPHILS # (AUTO) 0.3 10^3/uL (0.0-0.6); ABSOLUTE LYMPHOCYTES (AUTO) 2.4 10^3/uL (0.5-4.7); ABSOLUTE MONOCYTES (AUTO) 0.5 10^3/uL (0.1-1.4); ABSOLUTE NEUT (AUTO) 2.6 10^3/uL (1.7-8.2); BASOPHILS % (AUTO) 1.2 % (0-2); EOSINOPHILS % (AUTO) 5.8 % (0-6); HEMATOCRIT 35.5 % (37.9-51.0); HEMOGLOBIN 11.4 g/dL (13.5-17.0); LYMPHOCYTES % (AUTO) 40.6 % (13-45); MEAN CORPUSCULAR HEMOGLOBIN 23.5 pg (27.0-33.4); MEAN CORPUSCULAR VOLUME 74 fl (80-97); PLATELET COUNT 132 10^3/uL (150-450); RED BLOOD COUNT 4.83 10^6/uL (4.35-5.55); RED CELL DISTRIBUTION WIDTH 14.8 % (11.5-14.0); SEGMENTED NEUTROPHILS % (AUTO) 44.4 % (42-78); TOTAL CELLS COUNTED % (AUTO) 100 %; WHITE BLOOD COUNT 5.9 10^3/uL (4.0-10.5)
[2018-04-23 05:54] LABS: ALANINE AMINOTRANSFERASE 18 U/L (21-72); ALBUMIN 3.2 g/dL (3.5-5.0); ALKALINE PHOSPHATASE 56 U/L (38-126); ANION GAP 9 (5-19); ASPARTATE AMINO TRANSFERASE 29 U/L (17-59); BILIRUBIN,DIRECT 0.2 mg/dL (0.0-0.4); BILIRUBIN,TOTAL 0.3 mg/dL (0.2-1.3); BLOOD UREA NITROGEN 22 mg/dL (7-20); CALCIUM 9.5 mg/dL (8.4-10.2); CARBON DIOXIDE 30 mmol/L (22-30); CHLORIDE 104 mmol/L (98-107); GLUCOSE 98 mg/dL (75-110); POTASSIUM 4.7 mmol/L (3.6-5.0); SODIUM 143.1 mmol/L (137-145); TOTAL PROTEIN 6.4 g/dL (6.3-8.2)
[2018-04-23] MEDS: NORMAL SALINE 1000 ML 1,000 ML IV PRN (06:17)
--- NOTE | 2018-04-23 16:32 | PDOC DISCHARGE SUMMARY ---
General - Admit/Disc Date/PCP Admission Date/Primary Care Provider: 04/21/18 13:31 ZENOBIA BOWSER MD Discharge Date: 04/23/18 - Discharge Diagnosis (1) Dehydration Is this a current diagnosis for this admission?: Yes (2) Weight loss Is this a current diagnosis for this admission?: Yes (3) Abdominal aortic aneurysm (AAA) 3.0 cm to 5.5 cm in diameter in male Is this a current diagnosis for this admission?: Yes (4) Dementia Is this a current diagnosis for this admission?: Yes (5) Right inguinal hernia Is this a current diagnosis for this admission?: Yes - Additional Information Home Medications: RX: Aspirin [Adult Low Dose Aspirin EC] 81 mg PO DAILY 01/14/18 RX: Cetirizine HCl [Zyrtec 10 mg Tablet] 10 mg PO DAILY 01/14/18 RX: Cyanocobalamin (Vitamin B-12) [Vitamin B-12 1000 mcg Tablet] 2,000 mcg PO DAILY 01/14/18 RX: Ferrous Sulfate 324 mg PO DAILY 01/14/18 RX: Fluticasone Propionate [Flonase Nasal [place] 50 Mcg/[place] 16 gm] 1 spray NASL DAILY 01/14/18 RX: Hydrochlorothiazide [Hydrodiuril 50 mg Tablet] 50 mg PO DAILY 01/14/18 RX: Memantine HCl/Donepezil HCl [Namzaric 28 mg-10 mg Capsule] 1 cap PO QPM 01/14/18 History of Present Illness History of Present Illness: SHY INGRAM JR is a 83 year old male, He has a history of underlying dementia, infrarenal abdominal aortic aneurysm, he has a large polyp in the colon that is suspicious for malignant tubular adenoma patient is electively scheduled for hemicolectomy on May 02, [address] Holloway the general surgeon in this hospital. He came to the office today with his brother because of decreased oral intake ,he lost 20 pounds weight in a span of 2 weeks, The brother was concerned about the decline in his health especially the weight loss, the diminished intake both food and fluid. In the office he was evaluated he was examined there was evidence of loss of skin turgor ,dry oral mucosa overall poor physical health. I felt patient needed to be admitted to the [facility] for further evaluation and management and probably consult with a surgeon for colectomy on this admission. There was no bed available, on the advice of the nursing supervisor display fabrication patient was referred to the ER, he was seen again by the ER providers and ultimately admitted to the hospital. Hospital Course Hospital Course: Patient was admitted for the management of dehydration, weight loss, he was seen by the surgeon, it was felt that he does not need to have surgery at this time.Patient was brought in for observation and management, he was treated with IV fluid Physical Exam Vital Signs: Temp Pulse Resp BP Pulse Ox 98.1 F 71 18 122/72 99 04/23/18 12:48 04/23/18 14:00 04/23/18 12:48 04/23/18 12:48 04/23/18 12:48 Intake & Output 04/22/18 04/23/18 04/24/18 06:59 06:59 06:59 Intake Total 1168 1361 Output Total 350 Balance 1168 1011 Weight 55.9 kg 59.4 kg General appearance: PRESENT: no acute distress Eye exam: PRESENT: PERRLA Respiratory exam: PRESENT: clear to auscultation khadijah Cardiovascular exam: PRESENT: +S1, +S2 GI/Abdominal exam: PRESENT: soft Neurological exam: PRESENT: alert Results Laboratory Results: 04/23/18 05:15 04/23/18 05:15 04/22/18 04/22/18 04/23/18 19:55 19:55 05:15 WBC 4.9 5.9 RBC 4.89 4.83 Hgb 11.5 L 11.4 L Hct 35.4 L 35.5 L MCV 72 L 74 L MCH 23.6 L 23.5 L MCHC 32.6 32.0 RDW 14.8 H 14.8 H Plt Count 154 132 L Seg Neutrophils % 47.4 44.4 Lymphocytes % 37.4 40.6 Monocytes % 9.2 8.0 Eosinophils % 5.2 5.8 Basophils % 0.8 1.2 Absolute Neutrophils 2.3 2.6 Absolute Lymphocytes 1.8 2.4 Absolute Monocytes 0.5 0.5 Absolute Eosinophils 0.3 0.3 Absolute Basophils 0.0 0.1 Sodium 140.6 Potassium 4.4 Chloride 101 Carbon Dioxide 33 H Anion Gap 7 BUN 21 H Creatinine 1.67 H Est GFR ( Amer) 48 L Est GFR (Non-Af Amer) 39 L Glucose 99 Calcium 9.5 Total Bilirubin 0.2 AST 31 ALT 21 Alkaline Phosphatase 62 Total Protein 6.8 Albumin 3.4 L 04/23/18 05:15 WBC RBC Hgb Hct MCV MCH MCHC RDW Plt Count Seg Neutrophils % Lymphocytes % Monocytes % Eosinophils % Basophils % Absolute Neutrophils Absolute Lymphocytes Absolute Monocytes Absolute Eosinophils Absolute Basophils Sodium 143.1 Potassium 4.7 Chloride 104 Carbon Dioxide 30 Anion Gap 9 BUN 22 H Creatinine 1.61 H Est GFR ( Amer) 50 L Est GFR (Non-Af Amer) 41 L Glucose 98 Calcium 9.5 Total Bilirubin 0.3 AST 29 ALT 18 L Alkaline Phosphatase 56 Total Protein 6.4 Albumin 3.2 L Impressions: Chest X-Ray 04/21/18 00:00 IMPRESSION: No evidence of acute cardiopulmonary disease. Qualifiers - * PATIENT BEING DISCHARGED WITH ANY OF THE FOLLOWING DIAGNOSIS: No
[2018-04-23 16:48] VITALS: BP 132/64
== END 2018-04-23 17:51 | disposition home or self-care (01) ==
LOC: ER 10:43 → INTOOBSV 13:31 → EH 13:31 → 4N 17:27
PROVIDERS: ADMIT Internal Medicine; ATTEND Internal Medicine
DX: E86.0 Dehydration (principal); R63.4 Abnormal weight loss; I71.4 Abdominal aortic aneurysm, without rupture; F03.90 Unspecified dementia, unspecified severity, without behavioral disturbance, psychotic disturbance, mood disturbance, and anxiety; K40.90 Unilateral inguinal hernia, without obstruction or gangrene, not specified as recurrent; K63.5 Polyp of colon; K59.09 Other constipation; R62.7 Adult failure to thrive; N39.0 Urinary tract infection, site not specified; R42 Dizziness and giddiness; I12.9 Hypertensive chronic kidney disease with stage 1 through stage 4 chronic kidney disease, or unspecified chronic kidney disease; N18.3 Chronic kidney disease, stage 3 (moderate); R19.7 Diarrhea, unspecified; R53.1 Weakness; M54.9 Dorsalgia, unspecified; Z60.2 Problems related to living alone; Z87.891 Personal history of nicotine dependence; Z85.038 Personal history of other malignant neoplasm of large intestine
CPT/HCPCS: 99284; 36415 ×3; 87086; 85025 ×3; 87088; 80053 ×3; 81001; 87186; 83970; 71045; G0378; A9270; J7030 ×3; J3490

== ENCOUNTER 2018-05-02 08:07 | Inpatient (IN) | payer MEDICARE, MEDICAID ==
--- NOTE | 2018-04-24 22:19 | EKG REPORT ---
SEVERITY:- ABNORMAL ECG - SINUS RHYTHM FIRST DEGREE AV BLOCK PROBABLE INFERIOR INFARCT, OLD : Confirmed by: Triny Tony 24-Apr-2018 22:18:35
[2018-04-29 11:01] LABS: HEMOGLOBIN 11.4 g/dL (13.5-17.0); MEAN CORPUSCULAR HEMOGLOBIN 23.6 pg (27.0-33.4); MEAN CORPUSCULAR HGB CONC 32.5 g/dL (32.0-36.0); MEAN CORPUSCULAR VOLUME 73 fl (80-97); PLATELET COUNT 169 10^3/uL (150-450); RED BLOOD COUNT 4.82 10^6/uL (4.35-5.55); RED CELL DISTRIBUTION WIDTH 15.1 % (11.5-14.0); WHITE BLOOD COUNT 5.8 10^3/uL (4.0-10.5)
[2018-04-29 11:26] LABS: ANION GAP 10 (5-19); BLOOD UREA NITROGEN 21 mg/dL (7-20); CALCIUM 9.9 mg/dL (8.4-10.2); CARBON DIOXIDE 30 mmol/L (22-30); CHLORIDE 100 mmol/L (98-107); GLUCOSE 97 mg/dL (75-110); SODIUM 139.7 mmol/L (137-145)
[~2018-05-02 08:07] MED LIST: BUPIVACAINE HCL 0.25 % INJ/PF (2.5 MG/1 ML) 30 ML VIAL ONE; CEFOXITIN SODIUM 2 GM in DEXTROSE 5%-WATER 100 ML IV PRN; IBUPROFEN 800 MG in NORMAL SALINE 250 ML IV PRN; LACTATED RINGERS 1000 ML IV PRN; LIDOCAINE 0.5% INJ-PF (5 MG/ML) 50 ML SDV SUBCUT PRN; RINGERS SOLUTION,LACTATED 500 ML IV PRN
[2018-05-02] MEDS ORDERED: MIDAZOLAM 2 MG/2 ML INJ ONE (11:26)
[2018-05-02] MEDS ORDERED: PROPOFOL INJ 200 MG/20 ML VIAL IV ONE (11:26)
[2018-05-02] MEDS ORDERED: FENTANYL CITRATE INJ/PF 100 MCG/2 ML AMPUL ONE ×2 (11:26→15:12)
[2018-05-02] MEDS ORDERED: MORPHINE SULFATE 10 MG/ML INJ ONE (11:27)
[2018-05-02] MEDS ORDERED: PHENYLEPHRINE HCL INJ/PF 10 MG/1 ML SDV ONE (14:28)
[2018-05-02] MEDS ORDERED: DEXAMETHASONE SOD PHOSPHATE INJ 4 MG/1 ML VIAL ONE (14:28)
[2018-05-02] MEDS ORDERED: SUCCINYLCHOLINE CHLORIDE INJ 200 MG/10 ML VIAL ONE (14:28)
[2018-05-02] MEDS ORDERED: LIDOCAINE 2% INJ-PF (20 MG/ML) 2 ML AMPUL ONE (14:28)
[2018-05-02] MEDS ORDERED: ONDANSETRON HCL INJ/PF 4 MG/2 ML SDV ONE (14:28)
[2018-05-02] MEDS ORDERED: GLYCOPYRROLATE 1 MG/5 ML SYRINGE ONE (14:28)
[2018-05-02] MEDS ORDERED: ROCURONIUM BROMIDE INJ 50 MG/5 ML VIAL IV ONE (14:28)
[2018-05-02] MEDS ORDERED: MORPHINE SULFATE 10 MG/ML INJ IV PRN ×2 (14:35→15:19)
[2018-05-02] MEDS: FENTANYL CITRATE INJ/PF 100 MCG/2 ML AMPUL IV PRN ×3 (15:15→15:30)
[2018-05-02] MEDS ORDERED: DIPHENHYDRAMINE HCL 50 MG/ML VIAL IV PRN (15:19)
[2018-05-02] MEDS ORDERED: PROMETHAZINE HCL INJ 25 MG/1 ML VIAL IV PRN (15:19)
[2018-05-02] MEDS ORDERED: MEPERIDINE HCL/PF INJ 25 MG/1 ML DISP.SYRIN IV PRN (15:19)
[2018-05-02] MEDS: OXYCODONE-ACETAMINOPHEN 5-325 MG TABLET PO PRN (17:38)
[2018-05-02] MEDS: CEFOXITIN SODIUM 2 GM in DEXTROSE 5%-WATER 100 ML IV SCH (20:28)
[2018-05-02] MEDS: DEXTROSE 5%-LACTATED RINGERS 1,000 ML IV PRN (20:33)
[2018-05-02] MEDS: KETOROLAC TROMETHAMINE INJ/PF 30 MG/1 ML SDV IV SCH (21:33)
[2018-05-02] MEDS: FAMOTIDINE INJ/PF 20 MG/2 ML SDV IV SCH (21:33)
[2018-05-03] MEDS: OXYCODONE-ACETAMINOPHEN 5-325 MG TABLET PO PRN (03:47)
[2018-05-03] MEDS: KETOROLAC TROMETHAMINE INJ/PF 30 MG/1 ML SDV IV SCH ×3 (05:05→21:03)
[2018-05-03] MEDS: DEXTROSE 5%-LACTATED RINGERS 1,000 ML IV PRN ×3 (05:42→23:04)
[2018-05-03 09:00] LABS: ABSOLUTE LYMPHOCYTES (AUTO) 1.5 10^3/uL (0.5-4.7); ABSOLUTE MONOCYTES (AUTO) 0.8 10^3/uL (0.1-1.4); ABSOLUTE NEUT (AUTO) 8.1 10^3/uL (1.7-8.2); BASOPHILS % (AUTO) 0.3 % (0-2); EOSINOPHILS % (AUTO) 0.2 % (0-6); HEMATOCRIT 33.4 % (37.9-51.0); HEMOGLOBIN 10.9 g/dL (13.5-17.0); LYMPHOCYTES % (AUTO) 14.6 % (13-45); MEAN CORPUSCULAR HEMOGLOBIN 23.8 pg (27.0-33.4); MEAN CORPUSCULAR HGB CONC 32.5 g/dL (32.0-36.0); MEAN CORPUSCULAR VOLUME 73 fl (80-97); MONOCYTES % (AUTO) 7.8 % (3-13); PLATELET COUNT 168 10^3/uL (150-450); RED BLOOD COUNT 4.57 10^6/uL (4.35-5.55); SEGMENTED NEUTROPHILS % (AUTO) 77.1 % (42-78); TOTAL CELLS COUNTED % (AUTO) 100 %; WHITE BLOOD COUNT 10.5 10^3/uL (4.0-10.5)
[2018-05-03 09:06] LABS: ANION GAP 8 (5-19); BLOOD UREA NITROGEN 17 mg/dL (7-20); CALCIUM 8.8 mg/dL (8.4-10.2); CARBON DIOXIDE 23 mmol/L (22-30); CHLORIDE 104 mmol/L (98-107); GLUCOSE 123 mg/dL (75-110); POTASSIUM 4.8 mmol/L (3.6-5.0); SODIUM 135.4 mmol/L (137-145)
--- NOTE | 2018-05-03 09:14 | PDOC PROGRESS REPORT ---
Subjective Progress Note for:: 05/03/18 Subjective:: no c/o; no flatus or stools, tolerating full liquids well Reason For Visit: COLON POLYOP NOT AMENABLE TO ENDOSCOPIC RESECTION Physical Exam Vital Signs: Temp Pulse Resp BP Pulse Ox 97.9 F 61 22 H 104/67 94 05/03/18 08:19 05/03/18 08:19 05/03/18 08:19 05/03/18 08:19 05/03/18 08:19 Intake & Output 05/02/18 05/03/18 05/04/18 06:59 06:59 07:59 Intake Total 4065 Output Total 650 Balance 3415 Weight 55.2 kg General appearance: PRESENT: no acute distress Respiratory exam: PRESENT: clear to auscultation khadijah Cardiovascular exam: PRESENT: RRR GI/Abdominal exam: PRESENT: hypoactive bowel sounds, soft, other - all incisions are c/d/i, minimale serosanguinous drainage from umbilical incision Results Laboratory Results: 05/03/18 08:33 05/02/18 05/03/18 10:35 08:33 WBC 10.5 RBC 4.57 Hgb 10.9 L Hct 33.4 L MCV 73 L MCH 23.8 L MCHC 32.5 RDW 15.0 H Plt Count 168 Seg Neutrophils % 77.1 Lymphocytes % 14.6 Monocytes % 7.8 Eosinophils % 0.2 Basophils % 0.3 Absolute Neutrophils 8.1 Absolute Lymphocytes 1.5 Absolute Monocytes 0.8 Absolute Eosinophils 0.0 Absolute Basophils 0.0 Potassium 4.4 Assessment & Plan - Diagnosis (1) Colon polyps Qualifiers: Colon location: ascending Inflammatory colon polyp complication status: without complication Is this a current diagnosis for this admission?: Yes - Plan Summary Plan Summary: A/ POD#1 s/p laparoscopic right hemicolectomy VSS,AF patient comfortable, tolerating full liquid diet well no bowel function WBC wnl with H/H 10.9/33.4 P/ Continue IVF Continue full liquid diet until bowel funciton returns Davis out in AM replace bandages blood work in AM
[2018-05-03] MEDS: FAMOTIDINE INJ/PF 20 MG/2 ML SDV IV SCH ×2 (09:19→21:03)
[2018-05-03] MEDS: ASPIRIN 81 MG TABLET, ENT COATED PO SCH (09:20)
[2018-05-03] MEDS: ENOXAPARIN SODIUM INJ 40 MG/0.4 ML DISP.SYRIN SUBCUT SCH (09:21)
[2018-05-03] MEDS: CEFOXITIN SODIUM 2 GM in DEXTROSE 5%-WATER 100 ML IV SCH (09:21)
--- NOTE | 2018-05-03 10:27 | Operative Report ---
Nonrecallable Operative Report DATE OF SURGERY: 05/02/18 PREOPERATIVE DIAGNOSIS: Right-sided colon polyp with high-grade dysplasia, not amenable to endoscopic removal. POSTOPERATIVE DIAGNOSIS: Same as above. OPERATION: Laparoscopic right hemicolectomy. SURGEON: RAMSES TIMMONS COUNSELOR AIDE: YELENA RODRIGES ANESTHESIA: GA TISSUE REMOVED OR ALTERED: Right hemicolectomy. COMPLICATIONS: None apparent. ESTIMATED BLOOD LOSS: 25 cc PROCEDURE: Drains/implants: None. Procedure in detail: After informed consent was obtained, the patient was brought to the operating room and laid in the supine position. The area of the abdomen was prepped and draped in a normal sterile fashion. The supraumbilical incision was created with a 15 blade scalpel. Dissection was then carried through the subcutaneous tissue using sharp and blunt means. The cicatrix was identified, grasped with a Jessi clamp, and retracted upwards. The linea alba fascia was incised sharply, the abdomen was entered sharply. The balloon trocar was inserted, and pneumoperitoneum was achieved. A suprapubic 5 mm port was placed under direct laparoscopic visualization. A left lower quadrant 12 mm trocar was placed and a right upper quadrant 5 mm trocar was placed, also under direct laparoscopic visualization. Attention was then turned to visualization of the right colon. The area of tattoo was squarely within the right colon. The cecum was grasped and elevated anteriorly. The ileocolic artery was isolated, ligated, and divided using the [place] 60 stapling device. Next, the terminal ileum was divided also using the [place] 60 stapler. The right colon was mobilized in a medial to lateral fashion. The me sentery was elevated anteriorly. Great care was taken not to injure the kidney, ureter, or duodenum during this maneuver. The mesentery was divided using the harmonic scalpel up to the middle colic artery. The middle colic artery was spared from injury. The white line of [place] was then divided, completing the medial mobilization of the right colon. Next, pneumoperitoneum was relieved, and the balloon trocar was removed. The incision in the supraumbilical position was extended cranially approximately 4 cm. The Joel wound retractor was then placed into the patient. The right colon was then exteriorized to the level of the mid transverse colon. The mid transverse colon was then divided using the [place] 60 stapler. The specimen was then passed off the field and sent to pathology. Next, attention was turned to creation of an anastomosis. The transverse colon was brought in apposition to the small bowel. A side to side stapled anastomosis was created with the [place] 60 stapler on the antimesenteric portions of the bowel. The resulting defect was then closed with the [place] stapler. 2 crotch stitches of 3-0 vicryl were placed. The anastomosis was then returned to the abdomen, and pneumoperitoneum was again achieved. The anastomosis was inspected. The anastomosis was found to lie in good position without kinking. The LLQ 12 mm port was then removed. The defect was then closed using 0 Vicryl suture in [id number] fashion using the endo-close device. The other 5mm ports were removed under direct laparoscopic visualization. The joel wound retractor was then removed, and pneumoperitoneum was relieved. The upper midline fascia was then closed using #1 single stranded PDS suture in running fashion. The overlying skin was then closed using 4-0 Vicryl suture in interrupted subcuticular fashion. Dressings were placed, and the procedure was concluded. All sponge, indtrument, and needle counts were correct x2. Condition: stable. Yelena Rodriges PA-C was scrubbed and present the entire procedure. She assisted with all portions of the procedure including placment of the trocars, manipulation of the colon, manipulation of the camera, creation of the anastomosis, closure of the fascia, and closure of the skin.
[2018-05-03] MEDS ORDERED: (PENDING PHARMACY ID) (Memantine Hcl/Donepezil Hcl [Namzaric 28 Mg-10 Mg Capsule] 1 CAP) PO SCH (18:00)
[2018-05-04] MEDS: KETOROLAC TROMETHAMINE INJ/PF 30 MG/1 ML SDV IV SCH ×2 (05:18→14:50)
[2018-05-04] MEDS: OXYCODONE-ACETAMINOPHEN 5-325 MG TABLET PO PRN ×2 (05:54→19:43)
[2018-05-04 06:25] LABS: ABSOLUTE EOSINOPHILS # (AUTO) 0.3 10^3/uL (0.0-0.6); ABSOLUTE LYMPHOCYTES (AUTO) 1.3 10^3/uL (0.5-4.7); ABSOLUTE MONOCYTES (AUTO) 0.6 10^3/uL (0.1-1.4); ABSOLUTE NEUT (AUTO) 5.1 10^3/uL (1.7-8.2); BASOPHILS % (AUTO) 0.5 % (0-2); EOSINOPHILS % (AUTO) 4.5 % (0-6); HEMATOCRIT 33.1 % (37.9-51.0); HEMOGLOBIN 10.9 g/dL (13.5-17.0); LYMPHOCYTES % (AUTO) 17.6 % (13-45); MEAN CORPUSCULAR HEMOGLOBIN 23.8 pg (27.0-33.4); MEAN CORPUSCULAR HGB CONC 32.9 g/dL (32.0-36.0); MEAN CORPUSCULAR VOLUME 72 fl (80-97); MONOCYTES % (AUTO) 8.4 % (3-13); PLATELET COUNT 172 10^3/uL (150-450); RED BLOOD COUNT 4.59 10^6/uL (4.35-5.55); RED CELL DISTRIBUTION WIDTH 14.8 % (11.5-14.0); TOTAL CELLS COUNTED % (AUTO) 100 %; WHITE BLOOD COUNT 7.4 10^3/uL (4.0-10.5)
[2018-05-04 06:57] LABS: ANION GAP 7 (5-19); BLOOD UREA NITROGEN 14 mg/dL (7-20); CALCIUM 8.4 mg/dL (8.4-10.2); CARBON DIOXIDE 24 mmol/L (22-30); CHLORIDE 103 mmol/L (98-107); GLUCOSE 103 mg/dL (75-110); POTASSIUM 4.4 mmol/L (3.6-5.0); SODIUM 133.9 mmol/L (137-145)
[2018-05-04] MEDS: FAMOTIDINE INJ/PF 20 MG/2 ML SDV IV SCH ×2 (10:04→21:13)
[2018-05-04] MEDS: DEXTROSE 5%-LACTATED RINGERS 1,000 ML IV PRN (10:04)
[2018-05-04] MEDS: ENOXAPARIN SODIUM INJ 40 MG/0.4 ML DISP.SYRIN SUBCUT SCH (10:04)
[2018-05-04] MEDS: ASPIRIN 81 MG TABLET, ENT COATED PO SCH (10:04)
--- NOTE | 2018-05-04 11:52 | PDOC PROGRESS REPORT ---
Subjective Progress Note for:: 05/04/18 Subjective:: comfortable, denies N/V, no flatus or stools Reason For Visit: COLON POLYOP NOT AMENABLE TO ENDOSCOPIC RESECTION Physical Exam Vital Signs: Temp Pulse Resp BP Pulse Ox 97.4 F 68 20 134/78 H 96 05/04/18 07:41 05/04/18 07:41 05/04/18 07:41 05/04/18 07:41 05/04/18 07:41 Intake & Output 05/03/18 05/04/18 05/05/18 05:59 06:59 06:59 Intake Total 1000 Output Total Balance 1000 Weight General appearance: PRESENT: no acute distress Respiratory exam: PRESENT: clear to auscultation khadijah Cardiovascular exam: PRESENT: RRR GI/Abdominal exam: PRESENT: soft, other - no bowel sounds; all incisions are C/D/I Results Laboratory Results: 05/04/18 05:39 05/04/18 05:39 05/04/18 05/04/18 05:39 05:39 WBC 7.4 RBC 4.59 Hgb 10.9 L Hct 33.1 L MCV 72 L MCH 23.8 L MCHC 32.9 RDW 14.8 H Plt Count 172 Seg Neutrophils % 69.0 Lymphocytes % 17.6 Monocytes % 8.4 Eosinophils % 4.5 Basophils % 0.5 Absolute Neutrophils 5.1 Absolute Lymphocytes 1.3 Absolute Monocytes 0.6 Absolute Eosinophils 0.3 Absolute Basophils 0.0 Sodium 133.9 L Potassium 4.4 Chloride 103 Carbon Dioxide 24 Anion Gap 7 BUN 14 Creatinine 1.39 H Est GFR ( Amer) 59 L Est GFR (Non-Af Amer) 49 L Glucose 103 Calcium 8.4 Assessment & Plan - Diagnosis (1) Colon polyps Qualifiers: Colon location: ascending Inflammatory colon polyp complication status: without complication Is this a current diagnosis for this admission?: Yes - Plan Summary Plan Summary: A/ POD#2 after laparoscopic right hemicolectomy for large polyp VSS, AF marginal UO (total 725 mL/past 24 hr) Blood work acceptable (BUN/creat improved= 14.1.3) fair appetite P/ Keep Davis to monitor UO Continue full liquid diet NS 1 L over 4 hrs
[2018-05-04] MEDS ORDERED: NORMAL SALINE 1000 ML 1,000 ML IV PRN (17:57)
[2018-05-04] MEDS: METOCLOPRAMIDE HCL INJ/PF 10 MG/2 ML SDV IV PRN (19:43)
[2018-05-05] MEDS: NORMAL SALINE 1000 ML 1,000 ML IV PRN ×3 (03:08→18:27)
[2018-05-05] MEDS ORDERED: GLUCAGON,HUMAN RECOMB 1 MG INJ SUBCUT PRN (08:00)
[2018-05-05] MEDS ORDERED: DEXTROSE 50%-WATER 25 GM/50 ML DISP.SYRIN IV PRN ×2 (08:00)
[2018-05-05] MEDS ORDERED: DEXTROSE 40% GEL 15 GM TUBE PO PRN ×2 (08:00)
--- NOTE | 2018-05-05 09:28 | RADIOLOGY REPORT (SQ) ---
EXAM DESCRIPTION: KUB/ABDOMEN (SINGLE VIEW) COMPLETED DATE/TIME: 05/05/2018 9:10 am REASON FOR STUDY: nausea K63.5 POLYP OF COLON COMPARISON: None. NUMBER OF VIEWS: One view. TECHNIQUE: Supine radiographic image of the abdomen acquired. LIMITATIONS: None. FINDINGS: BOWEL GAS PATTERN: Mildly to moderately dilated small bowel loops in the abdomen and pelv is. Several air-fluid levels on the upright image. Gas is noted throughout the colon and the rectum . Considerations for this finding includes incomplete bowel obstruction versus ileus. CALCIFICATIONS: No suspicious calcifications. SOFT TISSUES: No gross mass or suggestion of organomegaly. HARDWARE: None in the abdomen. BONES: Degenerative changes involving the lumbar spine. OTHER: Abdominal aortic and pelvic vascular calcifications. IMPRESSION: 1. Mildly to moderately dilated small bowel loops in the abdomen pelvis. Consideration s for these findings include incomplete bowel obstruction versus ileus. TECHNICAL DOCUMENTATION: JOB ID: [id number] [employer]- All Rights Reserved Reading location - IP/workstation name: [email or web address]
[2018-05-05] MEDS: ASPIRIN 81 MG TABLET, ENT COATED PO SCH (09:35)
[2018-05-05] MEDS: FAMOTIDINE INJ/PF 20 MG/2 ML SDV IV SCH ×2 (09:36→21:34)
[2018-05-05] MEDS: ENOXAPARIN SODIUM INJ 40 MG/0.4 ML DISP.SYRIN SUBCUT SCH (09:36)
[2018-05-05] MEDS: HYDROCHLOROTHIAZIDE 50 MG TABLET PO SCH (09:38)
[2018-05-05 10:25] LABS: ABSOLUTE LYMPHOCYTES (AUTO) 0.5 10^3/uL (0.5-4.7); ABSOLUTE MONOCYTES (AUTO) 0.3 10^3/uL (0.1-1.4); ABSOLUTE NEUT (AUTO) 7.5 10^3/uL (1.7-8.2); BASOPHILS % (AUTO) 0.3 % (0-2); EOSINOPHILS % (AUTO) 0.2 % (0-6); HEMATOCRIT 32.7 % (37.9-51.0); HEMOGLOBIN 10.8 g/dL (13.5-17.0); LYMPHOCYTES % (AUTO) 6.3 % (13-45); MEAN CORPUSCULAR HEMOGLOBIN 23.5 pg (27.0-33.4); MEAN CORPUSCULAR HGB CONC 33.1 g/dL (32.0-36.0); MEAN CORPUSCULAR VOLUME 71 fl (80-97); MONOCYTES % (AUTO) 3.6 % (3-13); PLATELET COUNT 206 10^3/uL (150-450); RED BLOOD COUNT 4.61 10^6/uL (4.35-5.55); SEGMENTED NEUTROPHILS % (AUTO) 89.6 % (42-78); TOTAL CELLS COUNTED % (AUTO) 100 %; WHITE BLOOD COUNT 8.4 10^3/uL (4.0-10.5)
[2018-05-05 10:42] LABS: ANION GAP 9 (5-19); BLOOD UREA NITROGEN 14 mg/dL (7-20); CALCIUM 8.9 mg/dL (8.4-10.2); CARBON DIOXIDE 21 mmol/L (22-30); CHLORIDE 104 mmol/L (98-107); GLUCOSE 119 mg/dL (75-110); POTASSIUM 4.5 mmol/L (3.6-5.0); SODIUM 133.8 mmol/L (137-145)
[2018-05-05] MEDS: TAMSULOSIN HCL 0.4 MG CAP.SR.24H PO SCH (16:58)
--- NOTE | 2018-05-05 17:37 | PDOC PROGRESS REPORT ---
Subjective Progress Note for:: 05/05/18 Reason For Visit: COLON POLYOP NOT AMENABLE TO ENDOSCOPIC RESECTION Physical Exam Vital Signs: Temp Pulse Resp BP Pulse Ox 98.2 F 83 16 140/84 H 98 05/05/18 00:00 05/05/18 00:00 05/05/18 00:00 05/05/18 00:00 05/05/18 00:00 Intake & Output 05/04/18 05/05/18 05/06/18 06:59 06:59 06:59 Intake Total 2990 Output Total 550 Balance 2440 Weight 55.2 kg Results Laboratory Results: 05/04/18 05:39 05/04/18 05:39 Assessment & Plan - Diagnosis (1) High grade dysplasia in colonic adenoma Is this a current diagnosis for this admission?: Yes - Plan Summary Plan Summary: This is an 83-year-old male status post laparoscopic right hemicolectomy for a tubular adenoma with high-grade dysplasia. The patient is doing well today. He reports some nausea and distention. He denies any flatus at this time. The patient's Davis catheter was removed earlier today. He has not been able to void. He does feel that he needs to void. He does not have a history of BPH or other prostate problems. I will start patient on Flomax and place a coud ca theter for the next 48 hours. Hopefully with the Flomax, he will be able to urinate prior to discharge. Ambulate. pulmonary toilet n.p.o. for now. Awaiting bowel function.
--- NOTE | 2018-05-05 18:21 | Operative Report ---
Nonrecallable Operative Report DATE OF SURGERY: 05/05/18 PREOPERATIVE DIAGNOSIS: Urinary retention status post Davis catheter removal. Rule out obstructive uropathy POSTOPERATIVE DIAGNOSIS: Same OPERATION: Insertion of a 18 [place] coud catheter SURGEON: VELMA JONES TISSUE REMOVED OR ALTERED: None COMPLICATIONS: None ESTIMATED BLOOD LOSS: None INTRAOPERATIVE FINDINGS: See below PROCEDURE: The patient was examined for floor. A Davis catheter had been removed earlier in the day, and over an 8-hour. The patient could not void. On further questioning, patient states he has had some active symptoms at night, with inability to void. An attempt was made by the nursing staff to reinsert a Davis cath earlier today it was unsuccessful due to patient's subjective complaints of pain. We now exposed the patient, expose the genitalia. Patient has a right inguinal hernia, reducible. The penis was grasped, meatus prepped with Betadine, and a 18 [place] coud catheter was inserted uneventfully. We immediately received return of yellow urine that was nonbloody. It was hooked to a standard drainage bag. The balloon was insufflated to accommodate was seated into position, secured to the patient's right leg.
[2018-05-06 05:27] LABS: ABSOLUTE EOSINOPHILS # (AUTO) 0.1 10^3/uL (0.0-0.6); ABSOLUTE LYMPHOCYTES (AUTO) 0.9 10^3/uL (0.5-4.7); ABSOLUTE MONOCYTES (AUTO) 0.4 10^3/uL (0.1-1.4); ABSOLUTE NEUT (AUTO) 6.6 10^3/uL (1.7-8.2); BASOPHILS % (AUTO) 0.3 % (0-2); EOSINOPHILS % (AUTO) 0.6 % (0-6); HEMATOCRIT 32.2 % (37.9-51.0); HEMOGLOBIN 10.7 g/dL (13.5-17.0); LYMPHOCYTES % (AUTO) 11.7 % (13-45); MEAN CORPUSCULAR HEMOGLOBIN 23.5 pg (27.0-33.4); MEAN CORPUSCULAR HGB CONC 33.1 g/dL (32.0-36.0); MEAN CORPUSCULAR VOLUME 71 fl (80-97); PLATELET COUNT 249 10^3/uL (150-450); RED BLOOD COUNT 4.55 10^6/uL (4.35-5.55); RED CELL DISTRIBUTION WIDTH 15.1 % (11.5-14.0); SEGMENTED NEUTROPHILS % (AUTO) 82.4 % (42-78); TOTAL CELLS COUNTED % (AUTO) 100 %; WHITE BLOOD COUNT 8.1 10^3/uL (4.0-10.5)
[2018-05-06 06:02] LABS: ANION GAP 6 (5-19); BLOOD UREA NITROGEN 14 mg/dL (7-20); CALCIUM 8.7 mg/dL (8.4-10.2); CARBON DIOXIDE 23 mmol/L (22-30); CHLORIDE 106 mmol/L (98-107); GLUCOSE 103 mg/dL (75-110); POTASSIUM 4.3 mmol/L (3.6-5.0); SODIUM 134.9 mmol/L (137-145)
[2018-05-06] MEDS: NORMAL SALINE 1000 ML 1,000 ML IV PRN ×2 (07:55→15:00)
[2018-05-06] MEDS: METOCLOPRAMIDE HCL INJ/PF 10 MG/2 ML SDV IV PRN (07:55)
[2018-05-06] MEDS: ASPIRIN 81 MG TABLET, ENT COATED PO SCH (09:24)
[2018-05-06] MEDS: FAMOTIDINE INJ/PF 20 MG/2 ML SDV IV SCH (09:24)
[2018-05-06] MEDS: HYDROCHLOROTHIAZIDE 50 MG TABLET PO SCH (09:25)
[2018-05-06] MEDS: ENOXAPARIN SODIUM INJ 40 MG/0.4 ML DISP.SYRIN SUBCUT SCH (09:25)
[2018-05-06] MEDS: OXYCODONE-ACETAMINOPHEN 5-325 MG TABLET PO PRN ×2 (11:55→19:35)
--- NOTE | 2018-05-06 13:23 | PDOC PROGRESS REPORT ---
Subjective Progress Note for:: 05/06/18 Reason For Visit: COLON POLYOP NOT AMENABLE TO ENDOSCOPIC RESECTION Physical Exam Vital Signs: Temp Pulse Resp BP Pulse Ox 98.0 F 60 16 143/87 H 92 05/06/18 08:03 05/06/18 08:03 05/06/18 08:03 05/06/18 08:03 05/06/18 08:03 Intake & Output 05/05/18 05/06/18 05/07/18 06:59 06:59 06:59 Intake Total 2990 2415 1000 Output Total 550 Balance 2440 2415 1000 Weight 55.2 kg 73.7 kg Results Laboratory Results: 05/06/18 04:56 05/06/18 04:56 05/06/18 05/06/18 04:56 04:56 WBC 8.1 RBC 4.55 Hgb 10.7 L Hct 32.2 L MCV 71 L MCH 23.5 L MCHC 33.1 RDW 15.1 H Plt Count 249 Seg Neutrophils % 82.4 H Lymphocytes % 11.7 L Monocytes % 5.0 Eosinophils % 0.6 Basophils % 0.3 Absolute Neutrophils 6.6 Absolute Lymphocytes 0.9 Absolute Monocytes 0.4 Absolute Eosinophils 0.1 Absolute Basophils 0.0 Sodium 134.9 L Potassium 4.3 Chloride 106 Carbon Dioxide 23 Anion Gap 6 BUN 14 Creatinine 1.15 Est GFR ( Amer) > 60 Est GFR (Non-Af Amer) > 60 Glucose 103 Calcium 8.7 Impressions: KUB X-Ray 05/05/18 00:00 IMPRESSION: 1. Mildly to moderately dilated small bowel loops in the abdomen pelvis. Considerations for these findings include incomplete bowel obstruction versus ileus. Assessment & Plan - Diagnosis (1) High grade dysplasia in colonic adenoma Is this a current diagnosis for this admission?: Yes - Plan Summary Plan Summary: This is an 83-year-old male status post laparoscopic right hemicolectomy for a tubular adenoma with high-grade dysplasia. The patient is doing well today. He denies nausea and distention today. He still denies flatus however. The patient's Davis was reinserted yesterday due to urinary retention. Continue Flomax. Hopefully with the Flomax, he will be able to urinate prior to discharge. Ambulate. pulmonary toilet OK for ice chips and popsicles. Awaiting bowel function.
[2018-05-06] MEDS: TAMSULOSIN HCL 0.4 MG CAP.SR.24H PO SCH (16:59)
[2018-05-07] MEDS: FAMOTIDINE INJ/PF 20 MG/2 ML SDV IV SCH ×3 (00:35→21:36)
[2018-05-07 07:43] LABS: ABSOLUTE EOSINOPHILS # (AUTO) 0.3 10^3/uL (0.0-0.6); ABSOLUTE LYMPHOCYTES (AUTO) 1.4 10^3/uL (0.5-4.7); ABSOLUTE MONOCYTES (AUTO) 0.6 10^3/uL (0.1-1.4); ABSOLUTE NEUT (AUTO) 5.8 10^3/uL (1.7-8.2); BASOPHILS % (AUTO) 0.4 % (0-2); EOSINOPHILS % (AUTO) 3.1 % (0-6); HEMATOCRIT 32.2 % (37.9-51.0); HEMOGLOBIN 10.6 g/dL (13.5-17.0); LYMPHOCYTES % (AUTO) 17.7 % (13-45); MEAN CORPUSCULAR HEMOGLOBIN 23.5 pg (27.0-33.4); MEAN CORPUSCULAR HGB CONC 32.8 g/dL (32.0-36.0); MEAN CORPUSCULAR VOLUME 72 fl (80-97); MONOCYTES % (AUTO) 6.8 % (3-13); PLATELET COUNT 274 10^3/uL (150-450); RED BLOOD COUNT 4.49 10^6/uL (4.35-5.55); RED CELL DISTRIBUTION WIDTH 14.9 % (11.5-14.0); TOTAL CELLS COUNTED % (AUTO) 100 %; WHITE BLOOD COUNT 8.1 10^3/uL (4.0-10.5)
[2018-05-07 08:09] LABS: ANION GAP 5 (5-19); BLOOD UREA NITROGEN 16 mg/dL (7-20); CALCIUM 8.6 mg/dL (8.4-10.2); CARBON DIOXIDE 23 mmol/L (22-30); CHLORIDE 107 mmol/L (98-107); GLUCOSE 87 mg/dL (75-110); POTASSIUM 4.4 mmol/L (3.6-5.0); SODIUM 134.5 mmol/L (137-145)
--- NOTE | 2018-05-07 08:48 | RADIOLOGY REPORT (SQ) ---
EXAM DESCRIPTION: KUB/ABDOMEN (SINGLE VIEW) COMPLETED DATE/TIME: 05/07/2018 8:19 am REASON FOR STUDY: distention after colon resection K63.5 POLYP OF COLON COMPARISON: 05/05/2018. NUMBER OF VIEWS: One view. TECHNIQUE: Supine radiographic image of the abdomen acquired. LIMITATIONS: None. FINDINGS: BOWEL GAS PATTERN: Persisting gaseous distension including distended loops of small bowel and redundant gas-filled colon. CALCIFICATIONS: No suspicious calcifications. SOFT TISSUES: No gross mass or suggestion of organomegaly. HARDWARE: None in the abdomen. BONES: Limiting osteopenia. OTHER: No other significant finding. IMPRESSION: Persistently abnormal bowel gas pattern. Includes up to moderately dilated small bowel loops, as before. This remains suspicious for some degree of bowel TECHNICAL DOCUMENTATION: JOB ID: [id number] [employer]- All Rights Reserved Reading location - IP/workstation name: [email or web address]
[2018-05-07] MEDS: ENOXAPARIN SODIUM INJ 40 MG/0.4 ML DISP.SYRIN SUBCUT SCH (10:50)
[2018-05-07] MEDS: ASPIRIN 81 MG TABLET, ENT COATED PO SCH (10:50)
[2018-05-07] MEDS: HYDROCHLOROTHIAZIDE 50 MG TABLET PO SCH (10:57)
--- NOTE | 2018-05-07 11:32 | PDOC PROGRESS REPORT ---
Subjective Reason For Visit: COLON POLYOP NOT AMENABLE TO ENDOSCOPIC RESECTION Physical Exam Vital Signs: Temp Pulse Resp BP Pulse Ox 98.0 F 63 16 158/79 H 91 L 05/07/18 07:49 05/07/18 07:49 05/07/18 07:49 05/07/18 07:49 05/07/18 07:49 Intake & Output 05/06/18 05/07/18 05/08/18 06:59 06:59 06:59 Intake Total 2415 3085 Output Total 300 Balance 2415 2785 Weight 73.7 kg 75.2 kg Results Laboratory Results: 05/07/18 06:42 05/07/18 06:42 05/07/18 05/07/18 06:42 06:42 WBC 8.1 RBC 4.49 Hgb 10.6 L Hct 32.2 L MCV 72 L MCH 23.5 L MCHC 32.8 RDW 14.9 H Plt Count 274 Seg Neutrophils % 72.0 Lymphocytes % 17.7 Monocytes % 6.8 Eosinophils % 3.1 Basophils % 0.4 Absolute Neutrophils 5.8 Absolute Lymphocytes 1.4 Absolute Monocytes 0.6 Absolute Eosinophils 0.3 Absolute Basophils 0.0 Sodium 134.5 L Potassium 4.4 Chloride 107 Carbon Dioxide 23 Anion Gap 5 BUN 16 Creatinine 1.21 Est GFR ( Amer) > 60 Est GFR (Non-Af Amer) 57 L Glucose 87 Calcium 8.6 Impressions: KUB X-Ray 05/07/18 06:00 IMPRESSION: Persistently abnormal bowel gas pattern. Includes up to moderately dilated small bowel loops, as before. This remains suspicious for some degree of bowel Assessment & Plan - Diagnosis (1) Colon cancer Qualifiers: Colon location: ascending Qualified Code(s): C18.2 - Malignant neoplasm of ascending colon Is this a current diagnosis for this admission?: Yes - Plan Summary Plan Summary: This is an 83-year-old male status post laparoscopic right hemicolectomy for a tubular adenoma with high-grade dysplasia. The patient is doing well today. He denies nausea and distention today. He still denies flatus however. The patient's urinary catheter "fell out" overnight, but he is voiding without difficulty. Continue Flomax. KUB taken today shows distended small bowel and colon, consistent with postoperative ileus. Ambulate. pulmonary toilet OK for ice chips and popsicles. Still awaiting bowel function.
[2018-05-07] MEDS: TAMSULOSIN HCL 0.4 MG CAP.SR.24H PO SCH (18:15)
[2018-05-07] MEDS: NORMAL SALINE 1000 ML 1,000 ML IV PRN (18:15)
[2018-05-08 07:02] LABS: ABSOLUTE EOSINOPHILS # (AUTO) 0.2 10^3/uL (0.0-0.6); ABSOLUTE LYMPHOCYTES (AUTO) 1.1 10^3/uL (0.5-4.7); ABSOLUTE MONOCYTES (AUTO) 0.5 10^3/uL (0.1-1.4); ABSOLUTE NEUT (AUTO) 5.3 10^3/uL (1.7-8.2); BASOPHILS % (AUTO) 0.3 % (0-2); EOSINOPHILS % (AUTO) 2.2 % (0-6); HEMATOCRIT 33.5 % (37.9-51.0); HEMOGLOBIN 11.1 g/dL (13.5-17.0); LYMPHOCYTES % (AUTO) 16.1 % (13-45); MEAN CORPUSCULAR HEMOGLOBIN 23.6 pg (27.0-33.4); MEAN CORPUSCULAR HGB CONC 33.1 g/dL (32.0-36.0); MEAN CORPUSCULAR VOLUME 72 fl (80-97); MONOCYTES % (AUTO) 7.6 % (3-13); PLATELET COUNT 280 10^3/uL (150-450); RED BLOOD COUNT 4.69 10^6/uL (4.35-5.55); RED CELL DISTRIBUTION WIDTH 14.9 % (11.5-14.0); SEGMENTED NEUTROPHILS % (AUTO) 73.8 % (42-78); TOTAL CELLS COUNTED % (AUTO) 100 %; WHITE BLOOD COUNT 7.1 10^3/uL (4.0-10.5)
[2018-05-08 07:23] LABS: ANION GAP 8 (5-19); BLOOD UREA NITROGEN 17 mg/dL (7-20); CALCIUM 8.9 mg/dL (8.4-10.2); CARBON DIOXIDE 23 mmol/L (22-30); CHLORIDE 104 mmol/L (98-107); GLUCOSE 90 mg/dL (75-110); POTASSIUM 4.5 mmol/L (3.6-5.0)
[2018-05-08] MEDS: HYDROCHLOROTHIAZIDE 50 MG TABLET PO SCH (09:50)
[2018-05-08] MEDS: ASPIRIN 81 MG TABLET, ENT COATED PO SCH (09:50)
[2018-05-08] MEDS: FAMOTIDINE INJ/PF 20 MG/2 ML SDV IV SCH ×2 (09:50→21:26)
[2018-05-08] MEDS: ENOXAPARIN SODIUM INJ 40 MG/0.4 ML DISP.SYRIN SUBCUT SCH (09:51)
[2018-05-08] MEDS: NORMAL SALINE 1000 ML 1,000 ML IV PRN ×2 (10:46→14:33)
--- NOTE | 2018-05-08 12:53 | PDOC PROGRESS REPORT ---
Subjective Progress Note for:: 05/08/18 Reason For Visit: COLON POLYOP NOT AMENABLE TO ENDOSCOPIC RESECTION Physical Exam Vital Signs: Temp Pulse Resp BP Pulse Ox 98.3 F 81 20 168/96 H 94 05/07/18 23:35 05/07/18 23:35 05/07/18 23:35 05/07/18 23:35 05/07/18 23:35 Intake & Output 05/07/18 05/08/18 05/09/18 06:59 06:59 06:59 Intake Total 3085 1000 Output Total 300 175 Balance 2785 825 Weight 75.2 kg 73.9 kg Results Laboratory Results: 05/08/18 06:17 05/08/18 06:17 05/08/18 05/08/18 06:17 06:17 WBC 7.1 RBC 4.69 Hgb 11.1 L Hct 33.5 L MCV 72 L MCH 23.6 L MCHC 33.1 RDW 14.9 H Plt Count 280 Seg Neutrophils % 73.8 Lymphocytes % 16.1 Monocytes % 7.6 Eosinophils % 2.2 Basophils % 0.3 Absolute Neutrophils 5.3 Absolute Lymphocytes 1.1 Absolute Monocytes 0.5 Absolute Eosinophils 0.2 Absolute Basophils 0.0 Sodium 135.0 L Potassium 4.5 Chloride 104 Carbon Dioxide 23 Anion Gap 8 BUN 17 Creatinine 1.12 Est GFR ( Amer) > 60 Est GFR (Non-Af Amer) > 60 Glucose 90 Calcium 8.9 Impressions: KUB X-Ray 05/07/18 06:00 IMPRESSION: Persistently abnormal bowel gas pattern. Includes up to moderately dilated small bowel loops, as before. This remains suspicious for some degree of bowel Assessment & Plan - Diagnosis (1) Colon cancer Qualifiers: Colon location: ascending Qualified Code(s): C18.2 - Malignant neoplasm of ascending colon Is this a current diagnosis for this admission?: Yes - Plan Summary Plan Summary: This is an 83-year-old male status post laparoscopic right hemicolectomy for a tubular adenoma with high-grade dysplasia. The patient is doing well today. He denies nausea and vomiting today. He still denies flatus however. The patient's urinary catheter is out, and he is voiding without difficulty. Continue Flomax. KUB is consistent with postoperative ileus. afebrile. Vitals are stable Ambulate. pulmonary toilet OK for ice chips and popsicles. Decrease IVF to 50cc/hr Still awaiting bowel function.
[2018-05-08] MEDS: TAMSULOSIN HCL 0.4 MG CAP.SR.24H PO SCH (17:20)
[2018-05-09] MEDS: FAMOTIDINE INJ/PF 20 MG/2 ML SDV IV SCH (09:50)
[2018-05-09] MEDS: ASPIRIN 81 MG TABLET, ENT COATED PO SCH (09:50)
[2018-05-09] MEDS: ENOXAPARIN SODIUM INJ 40 MG/0.4 ML DISP.SYRIN SUBCUT SCH (09:51)
[2018-05-09] MEDS: HYDROCHLOROTHIAZIDE 50 MG TABLET PO SCH (10:29)
--- NOTE | 2018-05-09 11:16 | RADIOLOGY REPORT (SQ) ---
EXAM DESCRIPTION: KUB/ABDOMEN (SINGLE VIEW) COMPLETED DATE/TIME: 05/09/2018 10:51 am REASON FOR STUDY: distention COMPARISON: 05/05/2018, 05/07/2018 NUMBER OF VIEWS: One view. TECHNIQUE: Supine radiographic image of the abdomen acquired. LIMITATIONS: None. FINDINGS: BOWEL GAS PATTERN: Persistent dilated loops of small bowel. Decompressed large bowel. Ga s and fecal material in the rectum. CALCIFICATIONS: No suspicious calcifications. SOFT TISSUES: No gross mass or suggestion of organomegaly. HARDWARE: None. BONES: No bone lesions or fracture. OTHER: No other significant finding. IMPRESSION: Ileus or partial small bowel obstruction. No significant change. Reading location - IP/workstation name: [email or web address]
[2018-05-09] MEDS: NORMAL SALINE 1000 ML 1,000 ML IV PRN (16:40)
[2018-05-09] MEDS: TAMSULOSIN HCL 0.4 MG CAP.SR.24H PO SCH (17:26)
--- NOTE | 2018-05-09 20:32 | PDOC PROGRESS REPORT ---
Subjective Progress Note for:: 05/09/18 Reason For Visit: COLON POLYOP NOT AMENABLE TO ENDOSCOPIC RESECTION Physical Exam Vital Signs: Temp Pulse Resp BP Pulse Ox 98.4 F 99 18 136/83 H 95 05/09/18 17:34 05/09/18 17:34 05/09/18 17:34 05/09/18 17:34 05/09/18 17:34 Intake & Output 05/08/18 05/09/18 05/10/18 06:59 06:59 06:59 Intake Total 3464 186 8268 Output Total 175 300 Balance 660 628 3286 Weight 73.9 kg 75.9 kg 75.9 kg Results Laboratory Results: 05/08/18 06:17 05/08/18 06:17 Impressions: KUB X-Ray 05/09/18 08:14 IMPRESSION: Ileus or partial small bowel obstruction. No significant change. Assessment & Plan - Diagnosis (1) Colon cancer Qualifiers: Colon location: ascending Qualified Code(s): C18.2 - Malignant neoplasm of ascending colon Is this a current diagnosis for this admission?: Yes - Plan Summary Plan Summary: This is an 83-year-old male status post laparoscopic right hemicolectomy. Overall the patient is doing well, however the patient has not had a bowel movement in his 7 postoperative days. The nursing staff reports that he is pass ing some flatus. The patient is not having nausea or vomiting. His CBC and chemistry are essentially normal. His KUB still shows a likely ileus pattern. In order to investigate this further and rule out an obstructive process, I have ordered a CT scan of the abdomen and pelvis with IV and p.o. contrast. The scan is still pending at this time. Depending on the results of the scan, further intervention may be necessary. Further treatment will be decided based on this CT scan.
--- NOTE | 2018-05-09 21:23 | RADIOLOGY REPORT (SQ) ---
CT ABDOMEN PELVIS WITH IV CONTRAST EXAM DATE: 05/09/2018 20:53 HISTORY: Abdominal pain status post right hemicolectomy. COMPARISON: 03/30/2018 TECHNIQUE: CT scan of the abdomen and pelvis with IV contrast. This exam was performed according to our departmental dose-optimization program, which includes automated exposure control, adjustment of the mA and/or kV according to patient size and/or use of iterative reconstruction technique. FINDINGS: There are small bilateral pleural effusions, greater on the right, with adjacent atelectasis. The liver, gallbladder, spleen, pancreas, adrenal glands, and kidneys are normal. The pelvic organs are also normal. Status post post right hemicolectomy with a small amount of pneumomediastinum along with surgical sutures in the right lower quadrant, presumably postsurgical. There are also multiple dilated fluid-filled loops of small bowel predominantly in the right hemiabdomen, which measure up to 4 cm. There is also a moderate amount of abdominopelvic ascites. Unchanged appearance of 4.2 cm infrarenal abdominal aortic aneurysm. There are mild degenerative changes of the spine. There is a moderate right inguinal hernia containing fat and fluid. IMPRESSION: 1. Dilated small bowel loops predominantly in the right hemiabdomen without a definite transition point identified. This may represent small bowel obstruction versus ileus. 2. Status post right hemicolectomy with free air, presumably postsurgical. 3. Moderate abdominopelvic ascites. 4. Small bilateral pleural effusions.
[2018-05-09] MEDS ORDERED: MINERAL OIL ENEMA 133 ML PR ONE (22:20)
[2018-05-09] MEDS ORDERED: GLYCERIN 99.5% (ANHYDROUS) 177 ML PR ONE (22:20)
[2018-05-10] MEDS: FAMOTIDINE INJ/PF 20 MG/2 ML SDV IV SCH ×3 (00:43→21:53)
[2018-05-10] MEDS ORDERED: MINERAL OIL ENEMA 133 ML PR ONE (00:49)
[2018-05-10 09:55] LABS: ABSOLUTE LYMPHOCYTES (AUTO) 0.6 10^3/uL (0.5-4.7); ABSOLUTE MONOCYTES (AUTO) 0.7 10^3/uL (0.1-1.4); ABSOLUTE NEUT (AUTO) 6.5 10^3/uL (1.7-8.2); BASOPHILS % (AUTO) 0.3 % (0-2); EOSINOPHILS % (AUTO) 0.5 % (0-6); HEMATOCRIT 35.9 % (37.9-51.0); LYMPHOCYTES % (AUTO) 7.9 % (13-45); MEAN CORPUSCULAR HGB CONC 33.3 g/dL (32.0-36.0); MEAN CORPUSCULAR VOLUME 72 fl (80-97); MONOCYTES % (AUTO) 8.5 % (3-13); PLATELET COUNT 327 10^3/uL (150-450); RED BLOOD COUNT 4.97 10^6/uL (4.35-5.55); RED CELL DISTRIBUTION WIDTH 15.4 % (11.5-14.0); SEGMENTED NEUTROPHILS % (AUTO) 82.8 % (42-78); TOTAL CELLS COUNTED % (AUTO) 100 %; WHITE BLOOD COUNT 7.8 10^3/uL (4.0-10.5)
--- NOTE | 2018-05-10 10:15 | PDOC PROGRESS REPORT ---
Subjective Progress Note for:: 05/10/18 Reason For Visit: COLON POLYOP NOT AMENABLE TO ENDOSCOPIC RESECTION Physical Exam Vital Signs: Temp Pulse Resp BP Pulse Ox 97.8 F 86 19 136/66 H 96 05/10/18 08:05 05/10/18 08:05 05/10/18 08:05 05/10/18 08:05 05/10/18 08:05 Intake & Output 05/09/18 05/10/18 05/11/18 06:59 06:59 06:59 Intake Total 653 1000 Output Total 300 Balance 353 1000 Weight 75.9 kg 75.9 kg Results Laboratory Results: 05/10/18 09:40 05/10/18 09:40 WBC 7.8 RBC 4.97 Hgb 12.0 L Hct 35.9 L MCV 72 L MCH 24.0 L MCHC 33.3 RDW 15.4 H Plt Count 327 Seg Neutrophils % 82.8 H Lymphocytes % 7.9 L Monocytes % 8.5 Eosinophils % 0.5 Basophils % 0.3 Absolute Neutrophils 6.5 Absolute Lymphocytes 0.6 Absolute Monocytes 0.7 Absolute Eosinophils 0.0 Absolute Basophils 0.0 Impressions: Abdomen/Pelvis CT 05/09/18 00:00 IMPRESSION: 1. Dilated small bowel loops predominantly in the right hemiabdomen without a definite transition point identified. This may represent small bowel obstruction versus ileus. 2. Status post right hemicolectomy with free air, presumably postsurgical. 3. Moderate abdominopelvic ascites. 4. Small bilateral pleural effusions. KUB X-Ray 05/09/18 08:14 IMPRESSION: Ileus or partial small bowel obstruction. No significant change. Assessment & Plan - Diagnosis (1) Colon cancer Qualifiers: Colon location: ascending Qualified Code(s): C18.2 - Malignant neoplasm of ascending colon Is this a current diagnosis for this admission?: Yes - Plan Summary Plan Summary: There is an 83-year-old male status post laparoscopic right hemicolectomy. Yesterday the patient had not had a bowel movement after surgery and had very little flatus. CT scan was performed yesterday showing distended loops of small and large bowel with a large amount of stool in the transverse and descending colon. I believe his CT scan is consistent with ileus, as there is no obvious transition point. There is no sign of free perforation. The patient is afebri le, and his lab work is normal. The patient had an enema last night and had a very large bowel movement. His abdomen is soft this morning. The patient denies nausea or vomiting. I will start patient on a full liquid diet. Repeat KUB for today. Hopefully the patient will tolerate a full liquid diet. Ambulate/out of bed. Pulmonary toilet. Continue with supportive care.
[2018-05-10 10:16] LABS: ANION GAP 15 (5-19); BLOOD UREA NITROGEN 15 mg/dL (7-20); CARBON DIOXIDE 19 mmol/L (22-30); CHLORIDE 98 mmol/L (98-107); GLUCOSE 95 mg/dL (75-110); POTASSIUM 4.9 mmol/L (3.6-5.0); SODIUM 131.7 mmol/L (137-145)
[2018-05-10] MEDS: ENOXAPARIN SODIUM INJ 40 MG/0.4 ML DISP.SYRIN SUBCUT SCH (10:16)
[2018-05-10] MEDS: ASPIRIN 81 MG TABLET, ENT COATED PO SCH (10:16)
[2018-05-10] MEDS: HYDROCHLOROTHIAZIDE 50 MG TABLET PO SCH (10:19)
--- NOTE | 2018-05-10 13:21 | RADIOLOGY REPORT (SQ) ---
EXAM DESCRIPTION: KUB/ABDOMEN (SINGLE VIEW) COMPLETED DATE/TIME: 05/10/2018 11:29 am REASON FOR STUDY: distention K63.5 POLYP OF COLON COMPARISON: 05/09/2018 NUMBER OF VIEWS: One view. TECHNIQUE: Supine radiographic image of the abdomen acquired. LIMITATIONS: None. FINDINGS: BOWEL GAS PATTERN: Interval decrease in diffuse gaseous distention of the bowel and colon. No free air in the abdomen on supine radiograph. CALCIFICATIONS: No suspicious calcifications. SOFT TISSUES: No gross mass or suggestion of organomegaly. HARDWARE: None in the abdomen. BONES: No acute fracture. No worrisome bone lesions. OTHER: No other significant finding. IMPRESSION: Interval decrease in diffuse gaseous distention of the bowel and colon. No free air in the abdomen on supine radiograph. Findings consistent with improving ileus. TECHNICAL DOCUMENTATION: JOB ID: [id number] [id number]- All Rights Reserved Reading location - IP/workstation name: [email or web address]
[2018-05-10] MEDS: TAMSULOSIN HCL 0.4 MG CAP.SR.24H PO SCH ×2 (17:10→17:14)
[2018-05-10] MEDS: NORMAL SALINE 1000 ML 1,000 ML IV PRN (17:10)
[2018-05-11] MEDS: ENOXAPARIN SODIUM INJ 40 MG/0.4 ML DISP.SYRIN SUBCUT SCH (09:33)
[2018-05-11] MEDS: HYDROCHLOROTHIAZIDE 50 MG TABLET PO SCH (09:33)
[2018-05-11] MEDS: FAMOTIDINE INJ/PF 20 MG/2 ML SDV IV SCH ×2 (09:33→21:20)
[2018-05-11] MEDS: ASPIRIN 81 MG TABLET, ENT COATED PO SCH (09:33)
--- NOTE | 2018-05-11 11:12 | PDOC PROGRESS REPORT ---
Subjective Progress Note for:: 05/11/18 Subjective:: Patient has no complaints; poor p.o. intake; poor ambulation; remains pleasantly confused Reason For Visit: COLON POLYOP NOT AMENABLE TO ENDOSCOPIC RESECTION Physical Exam Vital Signs: Temp Pulse Resp BP Pulse Ox 97.5 F 88 17 134/90 H 97 05/11/18 07:56 05/11/18 07:56 05/11/18 07:56 05/11/18 07:56 05/11/18 07:56 Intake & Output 05/10/18 05/11/18 05/12/18 06:59 06:59 06:59 Intake Total 1000 1000 Balance 1000 1000 Weight 75.9 kg 73.5 kg General appearance: PRESENT: no acute distress GI/Abdominal exam: PRESENT: other - Completely benign abdomen Results Laboratory Results: 05/10/18 09:40 05/10/18 09:40 Impressions: Abdomen/Pelvis CT 05/09/18 00:00 IMPRESSION: 1. Dilated small bowel loops predominantly in the right hemiabdomen without a definite transition point identified. This may represent small bowel obstruction versus ileus. 2. Status post right hemicolectomy with free air, presumably postsurgical. 3. Moderate abdominopelvic ascites. 4. Small bilateral pleural effusions. KUB X-Ray 05/10/18 09:10 IMPRESSION: Interval decrease in diffuse gaseous distention of the bowel and colon. No free air in the abdomen on supine radiograph. Findings consistent with improving ileus. Assessment & Plan - Diagnosis (1) Colon cancer Qualifiers: Colon location: ascending Qualified Code(s): C18.2 - Malignant neoplasm of ascending colon Is this a current diagnosis for this admission?: Yes Plan: Patient now 9 days status post laparoscopic colectomy, doing well, no complications; poor motivation status; poor p.o. intake Recommendations: 1. We will get discharge planning involve for placement to [facility] facility 2. Continue supportive care
[2018-05-11] MEDS: NORMAL SALINE 1000 ML 1,000 ML IV PRN (12:52)
[2018-05-11] MEDS: TAMSULOSIN HCL 0.4 MG CAP.SR.24H PO SCH (17:22)
[2018-05-11] MEDS: METOCLOPRAMIDE HCL INJ/PF 10 MG/2 ML SDV IV PRN (21:20)
[2018-05-12] MEDS: NORMAL SALINE 1000 ML 1,000 ML IV PRN (07:03)
[2018-05-12] MEDS: HYDROCHLOROTHIAZIDE 50 MG TABLET PO SCH (11:02)
[2018-05-12] MEDS: ASPIRIN 81 MG TABLET, ENT COATED PO SCH (11:02)
[2018-05-12] MEDS: FAMOTIDINE INJ/PF 20 MG/2 ML SDV IV SCH ×2 (11:02→21:36)
[2018-05-12] MEDS: ENOXAPARIN SODIUM INJ 40 MG/0.4 ML DISP.SYRIN SUBCUT SCH (11:02)
--- NOTE | 2018-05-12 16:20 | PDOC PROGRESS REPORT ---
Subjective Progress Note for:: 05/12/18 Reason For Visit: COLON POLYOP NOT AMENABLE TO ENDOSCOPIC RESECTION Physical Exam Vital Signs: Temp Pulse Resp BP Pulse Ox 98.1 F 87 18 136/88 H 97 05/12/18 11:19 05/12/18 11:19 05/12/18 11:19 05/12/18 11:19 05/12/18 11:19 Intake & Output 05/11/18 05/12/18 05/13/18 06:59 06:59 06:59 Intake Total 1000 1251 909 Balance 1000 1251 909 Weight 73.5 kg 73.6 kg 73.6 kg Results Laboratory Results: 05/10/18 09:40 05/10/18 09:40 Impressions: Abdomen/Pelvis CT 05/09/18 00:00 IMPRESSION: 1. Dilated small bowel loops predominantly in the right hemiabdomen without a definite transition point identified. This may represent small bowel obstruction versus ileus. 2. Status post right hemicolectomy with free air, presumably postsurgical. 3. Moderate abdominopelvic ascites. 4. Small bilateral pleural effusions. KUB X-Ray 05/10/18 09:10 IMPRESSION: Interval decrease in diffuse gaseous distention of the bowel and colon. No free air in the abdomen on supine radiograph. Findings consistent with improving ileus. Assessment & Plan - Diagnosis (1) Colon cancer Qualifiers: Colon location: ascending Qualified Code(s): C18.2 - Malignant neoplasm of ascending colon Is this a current diagnosis for this admission?: Yes - Plan Summary Plan Summary: There is an 83-year-old male status post laparoscopic right hemicolectomy for colon cancer. The patient has been slow to progress, however he reports passing large amounts of flatus. His belly is soft and nondistended. He is tolerating full liquid diet. I will advance him to a regular diet today. Plan for discharge to nursing facility in the coming days. Out of bed/ambulate. Aggressive pulmonary toilet.
[2018-05-12] MEDS: TAMSULOSIN HCL 0.4 MG CAP.SR.24H PO SCH (17:31)
[2018-05-12] MEDS: DOXAZOSIN MESYLATE 1 MG TABLET PO SCH (21:35)
[2018-05-13] MEDS: ASPIRIN 81 MG TABLET, ENT COATED PO SCH (10:36)
[2018-05-13] MEDS: ENOXAPARIN SODIUM INJ 40 MG/0.4 ML DISP.SYRIN SUBCUT SCH (10:36)
[2018-05-13] MEDS: FAMOTIDINE INJ/PF 20 MG/2 ML SDV IV SCH ×2 (10:36→22:26)
[2018-05-13] MEDS: HYDROCHLOROTHIAZIDE 50 MG TABLET PO SCH (10:36)
--- NOTE | 2018-05-13 11:04 | PDOC PROGRESS REPORT ---
Subjective Reason For Visit: COLON POLYOP NOT AMENABLE TO ENDOSCOPIC RESECTION Physical Exam Vital Signs: Temp Pulse Resp BP Pulse Ox 97.7 F 84 18 157/85 H 96 05/13/18 07:55 05/13/18 07:55 05/13/18 07:55 05/13/18 07:55 05/13/18 07:55 Intake & Output 05/12/18 05/13/18 05/14/18 06:59 06:59 06:59 Intake Total 1251 1312 Balance 1251 1312 Weight 73.6 kg 73.4 kg Results Laboratory Results: 05/10/18 09:40 05/10/18 09:40 Impressions: Abdomen/Pelvis CT 05/09/18 00:00 IMPRESSION: 1. Dilated small bowel loops predominantly in the right hemiabdomen without a definite transition point identified. This may represent small bowel obstruction versus ileus. 2. Status post right hemicolectomy with free air, presumably postsurgical. 3. Moderate abdominopelvic ascites. 4. Small bilateral pleural effusions. KUB X-Ray 05/10/18 09:10 IMPRESSION: Interval decrease in diffuse gaseous distention of the bowel and colon. No free air in the abdomen on supine radiograph. Findings consistent with improving ileus. Assessment & Plan - Diagnosis (1) Colon cancer Qualifiers: Colon location: ascending Qualified Code(s): C18.2 - Malignant neoplasm of ascending colon Is this a current diagnosis for this admission?: Yes - Plan Summary Plan Summary: This is an 83-year-old male status post laparoscopic right hemicolectomy for colon cancer. The patient is doing well today. He ate a regular breakfast. He denies nausea or vomiting. He continues to pass flatus. His abdomen is soft and nondistended. Discharge planning for placement. Encourage p.o. intake. Out of bed/ambulate. Aggressive pulmonary toilet.
[2018-05-13] MEDS: TAMSULOSIN HCL 0.4 MG CAP.SR.24H PO SCH (17:40)
[2018-05-13] MEDS: DOXAZOSIN MESYLATE 1 MG TABLET PO SCH (22:25)
[2018-05-14] MEDS: HYDROCHLOROTHIAZIDE 50 MG TABLET PO SCH (09:36)
[2018-05-14] MEDS: ASPIRIN 81 MG TABLET, ENT COATED PO SCH (09:36)
[2018-05-14] MEDS: FAMOTIDINE INJ/PF 20 MG/2 ML SDV IV SCH (09:37)
[2018-05-14] MEDS: ENOXAPARIN SODIUM INJ 40 MG/0.4 ML DISP.SYRIN SUBCUT SCH (09:37)
[2018-05-14] MEDS ORDERED: MEGESTROL ACETATE 20 MG TABLET PO SCH (10:00)
[2018-05-14] MEDS ORDERED: CETIRIZINE 10 MG TABLET PO SCH (10:00)
--- NOTE | 2018-05-14 10:20 | PDOC PROGRESS REPORT ---
Subjective Reason For Visit: COLON POLYOP NOT AMENABLE TO ENDOSCOPIC RESECTION Physical Exam Vital Signs: Temp Pulse Resp BP Pulse Ox 98.1 F 77 18 122/72 97 05/14/18 00:21 05/14/18 00:21 05/13/18 19:00 05/14/18 00:21 05/14/18 00:21 Intake & Output 05/13/18 05/14/18 05/15/18 06:59 06:59 06:59 Intake Total 1312 1503 Balance 1312 1503 Weight 73.4 kg Results Laboratory Results: 05/10/18 09:40 05/10/18 09:40 Impressions: Abdomen/Pelvis CT 05/09/18 00:00 IMPRESSION: 1. Dilated small bowel loops predominantly in the right hemiabdomen without a definite transition point identified. This may represent small bowel obstruction versus ileus. 2. Status post right hemicolectomy with free air, presumably postsurgical. 3. Moderate abdominopelvic ascites. 4. Small bilateral pleural effusions. KUB X-Ray 05/10/18 09:10 IMPRESSION: Interval decrease in diffuse gaseous distention of the bowel and colon. No free air in the abdomen on supine radiograph. Findings consistent with improving ileus. Assessment & Plan - Diagnosis (1) Colon cancer Qualifiers: Colon location: ascending Qualified Code(s): C18.2 - Malignant neoplasm of ascending colon Is this a current diagnosis for this admission?: Yes (2) Dementia Qualifiers: Dementia type: unspecified type Dementia behavioral disturbance: without behavioral disturbance Qualified Code(s): F03.90 - Unspecified dementia without behavioral disturbance Is this a current diagnosis for this admission?: Yes - Plan Summary Plan Summary: Thom Staton Jr is an 83 yo male s/p right hemicolectomy due to colon polyp not amenable to endoscopic resection. BM yesterday. Eating full diet today without problems. Denies nausea/vomiting. Continue with bedside incentive spirometry. Discharge planning to [facility] is in place. Ambulate with assistance.
--- NOTE | 2018-05-14 17:09 | PDOC DISCHARGE SUMMARY ---
General - Admit/Disc Date/PCP Admission Date/Primary Care Provider: 05/02/18 09:08 ZENOBIA BOWSER MD Discharge Date: 05/14/18 - Discharge Diagnosis (1) Colon cancer Is this a current diagnosis for this admission?: Yes - Additional Information Resuscitation Status: Full Code Discharge Diet: As Tolerated Discharge Activity: No Lifting Over 10 Pounds Home Medications: Aspirin [Adult Low Dose Aspirin EC] 81 mg PO DAILY 01/14/18 Cetirizine HCl [Zyrtec 10 mg Tablet] 10 mg PO DAILY 01/14/18 Cyanocobalamin (Vitamin B-12) [Vitamin B-12 1000 mcg Tablet] 2,000 mcg PO DAILY 01/14/18 Ferrous Sulfate 324 mg PO DAILY 01/14/18 Fluticasone Propionate [Flonase Nasal Campton 50 Mcg/[place] 16 gm] 1 spray NASL PRN PRN 01/14/18 Hydrochlorothiazide [Hydrodiuril 50 mg Tablet] 50 mg PO DAILY 01/14/18 Memantine HCl/Donepezil HCl [Namzaric 28 mg-10 mg Capsule] 1 cap PO QPM 01/14/18 Multivitamin [Daily Multiple Vitamin] 1 each PO DAILY 04/24/18 History of Present Illness History of Present Illness: SHY INGRAM JR is a 83 year old male found to have a right-sided colon cancer, and was admitted to the hospital for surgical resection. Hospital Course Hospital Course: Patient underwent laparoscopic right hemicolectomy and did well from this. The patient was sent to the floor in stable condition. The patient had a prolonged period of time where he suffered from distention. Patient clinically resembled postoperative ileus. This began to improve slowly. He was advanced to full liquids, then to regular diet. He began having bowel movements. He is ambulating with some assistance. Patient also suffered from urinary retention, for which Flomax was started. The patient is urinating normally now. At this time the patient is tolerating regular diet, he is ambulating, and it was felt that he reached maximal hospital benefit and was fit for discharge. Physical Exam Vital Signs: Temp Pulse Resp BP Pulse Ox 98.1 F 87 18 105/70 98 05/14/18 11:08 05/14/18 11:08 05/14/18 11:08 05/14/18 11:08 05/14/18 11:08 Intake & Output 05/13/18 05/14/18 05/15/18 06:59 06:59 06:59 Intake Total 1312 1503 Balance 1312 1503 Weight 73.4 kg 73.4 kg Results Laboratory Results: 05/10/18 09:40 05/10/18 09:40 Impressions: Abdomen/Pelvis CT 05/09/18 00:00 IMPRESSION: 1. Dilated small bowel loops predominantly in the right hemiabdomen without a definite transition point identified. This may represent small bowel obstruction versus ileus. 2. Status post right hemicolectomy with free air, presumably postsurgical. 3. Moderate abdominopelvic ascites. 4. Small bilateral pleural effusions. KUB X-Ray 05/10/18 09:10 IMPRESSION: Interval decrease in diffuse gaseous distention of the bowel and colon. No free air in the abdomen on supine radiograph. Findings consistent with improving ileus. Qualifiers - * PATIENT BEING DISCHARGED WITH ANY OF THE FOLLOWING DIAGNOSIS: No Plan Discharge Plan: Discharge to retirement facility. Diet as tolerated. Activity: No lifting greater than 10 pounds x 6 weeks after surgery. Follow-up with me in 7-10 days. Flomax 0.4 mg p.o. daily. Time Spent: Less than 30 Minutes
[2018-05-14 17:11] VITALS: BP 120/78
[2018-05-14] MEDS: TAMSULOSIN HCL 0.4 MG CAP.SR.24H PO SCH (17:49)
== END 2018-05-14 19:45 | DRG 330 ==
LOC: INOR 09:08 → EDSTATUS 11:30 → 4N 16:37
PROVIDERS: ADMIT Surgery; ATTEND Surgery
PROC: 0DTF4ZZ Resection of Right Large Intestine, Percutaneous Endoscopic Approach (ICD-10-PCS; principal; 2018-05-03)
PROC: 0T9B30Z Drainage of Bladder with Drainage Device, Percutaneous Approach (ICD-10-PCS; 2018-05-05)
DX: C18.2 Malignant neoplasm of ascending colon (principal); K56.7 Ileus, unspecified; Z80.0 Family history of malignant neoplasm of digestive organs; Z80.42 Family history of malignant neoplasm of prostate; K40.90 Unilateral inguinal hernia, without obstruction or gangrene, not specified as recurrent; R33.9 Retention of urine, unspecified; F03.90 Unspecified dementia, unspecified severity, without behavioral disturbance, psychotic disturbance, mood disturbance, and anxiety; I10 Essential (primary) hypertension; H91.90 Unspecified hearing loss, unspecified ear; Z87.891 Personal history of nicotine dependence; Z90.49 Acquired absence of other specified parts of digestive tract; Z86.79 Personal history of other diseases of the circulatory system; Z79.82 Long term (current) use of aspirin; Z98.890 Other specified postprocedural states; Z79.899 Other long term (current) drug therapy
CPT/HCPCS: 00790; 36415; 74018; 74177; 80048; 84132; 85025; 85027; 86850; 86900; 86901; 88309; 93005; 93010; 94799; C1758; J0330; J0694; J1100; J1650; J1741; J1885; J2250; J2270; J2370; J2405; J2704; J2765; J3010; J3490; J7030; J7050; S0028

== ENCOUNTER → 2018-08-21 | Outpatient (CLI) | payer MEDICARE, MEDICAID ==
[2018-08-21 11:08] LABS: HEMATOCRIT 36.1 % (37.9-51.0); HEMOGLOBIN 11.5 g/dL (13.5-17.0); MEAN CORPUSCULAR HEMOGLOBIN 23.6 pg (27.0-33.4); MEAN CORPUSCULAR HGB CONC 31.8 g/dL (32.0-36.0); MEAN CORPUSCULAR VOLUME 74 fl (80-97); PLATELET COUNT 154 10^3/uL (150-450); RED BLOOD COUNT 4.86 10^6/uL (4.35-5.55); RED CELL DISTRIBUTION WIDTH 14.2 % (11.5-14.0)
[2018-08-21 11:29] LABS: ANION GAP 13 (5-19); BLOOD UREA NITROGEN 29 mg/dL (7-20); CALCIUM 10.3 mg/dL (8.4-10.2); CARBON DIOXIDE 27 mmol/L (22-30); CHLORIDE 103 mmol/L (98-107); GLUCOSE 91 mg/dL (75-110); POTASSIUM 4.6 mmol/L (3.6-5.0); SODIUM 142.6 mmol/L (137-145)
--- NOTE | 2018-08-21 13:09 | RADIOLOGY REPORT (SQ) ---
EXAM DESCRIPTION: CHEST PA/LATERAL COMPLETED DATE/TIME: 08/21/2018 11:00 am REASON FOR STUDY: PREOP COMPARISON: 04/21/2018 EXAM PARAMETERS: NUMBER OF VIEWS: two views TECHNIQUE: Digital Frontal and Lateral radiographic views of the chest acquired. RADIATION DOSE: NA LIMITATIONS: none FINDINGS: LUNGS AND PLEURA: No opacities, masses or pneumothorax. No pleural effusion. MEDIASTINUM AND HILAR STRUCTURES: No masses or contour abnormalities. HEART AND VASCULAR STRUCTURES: Heart normal size. No evidence for failure. BONES: No acute findings. HARDWARE: None in the chest. OTHER: No other significant finding. IMPRESSION: NO SIGNIFICANT RADIOGRAPHIC FINDING IN THE CHEST. TECHNICAL DOCUMENTATION: JOB ID: [id number]- All Rights Reserved Reading location - IP/workstation name: [email or web address]
--- NOTE | 2018-08-21 23:11 | EKG REPORT ---
SEVERITY:- OTHERWISE NORMAL ECG - SINUS RHYTHM LOW VOLTAGE IN FRONTAL LEADS : Confirmed by: Triny Tony 21-Aug-2018 23:10:56
== END ==
LOC: OD 10:21
PROVIDERS: ATTEND Surgery
DX: Z01.818 Encounter for other preprocedural examination (principal); K40.90 Unilateral inguinal hernia, without obstruction or gangrene, not specified as recurrent; F03.90 Unspecified dementia, unspecified severity, without behavioral disturbance, psychotic disturbance, mood disturbance, and anxiety; I12.9 Hypertensive chronic kidney disease with stage 1 through stage 4 chronic kidney disease, or unspecified chronic kidney disease; N18.9 Chronic kidney disease, unspecified; I48.91 Unspecified atrial fibrillation; I72.5 Aneurysm of other precerebral arteries; I71.4 Abdominal aortic aneurysm, without rupture; H91.90 Unspecified hearing loss, unspecified ear; Z98.890 Other specified postprocedural states
CPT/HCPCS: 36415; 71046; 80048; 85027; 93005; 93010

== ENCOUNTER 2018-09-16 08:54 | Day surgery (SDC) | payer MEDICARE, MEDICAID ==
[~2018-09-16 08:54] MED LIST changes: +ACETAMINOPHEN 325 MG TABLET PO PRN; -BUPIVACAINE HCL 0.25 % INJ/PF (2.5 MG/1 ML) 30 ML VIAL ONE; +CEFAZOLIN SODIUM 2 GM in DEXTROSE 5%-WATER 100 ML IV PRN; -CEFOXITIN SODIUM 2 GM in DEXTROSE 5%-WATER 100 ML IV PRN; -LACTATED RINGERS 1000 ML IV PRN; -LIDOCAINE 0.5% INJ-PF (5 MG/ML) 50 ML SDV SUBCUT PRN; -RINGERS SOLUTION,LACTATED 500 ML IV PRN
[2018-09-16] MEDS ORDERED: ACETAMINOPHEN 325 MG TABLET ONE (09:02)
[2018-09-16] MEDS ORDERED: BUPIVACAINE HCL 0.25 % INJ/PF (2.5 MG/1 ML) 30 ML VIAL ONE (12:25)
[2018-09-16] MEDS ORDERED: LIDOCAINE 1% INJ-PF (10 MG/ML) 30 ML SDV ONE (12:25)
[2018-09-16] MEDS ORDERED: FENTANYL CITRATE INJ/PF 100 MCG/2 ML AMPUL ONE (12:51)
[2018-09-16] MEDS ORDERED: KETAMINE HCL INJ 500 MG/10 ML VIAL ONE (12:51)
[2018-09-16] MEDS ORDERED: PROPOFOL INJ 200 MG/20 ML VIAL IV ONE (12:52)
[2018-09-16] MEDS ORDERED: ONDANSETRON HCL INJ/PF 4 MG/2 ML SDV IV PRN (13:43)
[2018-09-16] MEDS ORDERED: MEPERIDINE HCL/PF INJ 25 MG/1 ML DISP.SYRIN IV PRN (13:43)
[2018-09-16] MEDS ORDERED: DIPHENHYDRAMINE HCL 50 MG/ML VIAL IV PRN (13:43)
[2018-09-16] MEDS ORDERED: MORPHINE SULFATE 10 MG/ML INJ IV PRN (13:43)
[2018-09-16] MEDS ORDERED: FENTANYL CITRATE INJ/PF 100 MCG/2 ML AMPUL IV PRN ×3 (13:43)
[2018-09-16] MEDS ORDERED: PHENYLEPHRINE HCL INJ/PF 10 MG/1 ML SDV ONE (13:51)
[2018-09-16] MEDS ORDERED: LIDOCAINE 2% INJ-PF (20 MG/ML) 2 ML AMPUL ONE (13:51)
[2018-09-16] MEDS ORDERED: HYDROCODONE/ACETAMINOPHEN 5-325 MG TABLET PO PRN (15:38)
[2018-09-16 21:25] VITALS: BP 108/61
--- NOTE | 2018-09-17 18:37 | Discharge Summary ---
Discharge Summary (SDC) - Discharge Final Diagnosis: Large right inguinoscrotal hernia Date of Surgery: 09/16/18 Discharge Date: 09/16/18 Condition: Stable Forms: ASU Anesthesia D/C Instruction, Discharge POC-Surgical Service Treatment or Instructions: Discharge home. Diet as tolerated. Activity: No lifting greater than 10 pounds x 6 weeks. Follow-up with me in 7 to 10 days. Palmer 5/3 3 5 mg p.o. every 6 hours as needed for pain. Okay to shower in 48 hours. No swimming pools or tub baths x2 weeks. Referrals: ZENOBIA BOWSER MD [Primary Care Provider] - RAMSES HOLLOWAY MD [ACTIVE STAFF] - (Call for appointment with Dr Holloway in 7- 10 days.) Discharge Diet: As Tolerated Respiratory Treatments at Home: Deep Breathing/Coughing, Incentive Spirometer Discharge Activity: No Lifting Over 10 Pounds, No Lifting/Push/Pulling Home Care Assistance: Provided by Family Report the Following to Your Physician Immediately: Shortness of Breath, Increase in Pain, Fever over 101 Degrees, Unusual Bleeding, Redness, Swelling, Warmth, Increased Soreness, Drainage-Yellow, IV Site Infection Signs
--- NOTE | 2018-09-17 18:45 | Operative Report ---
Nonrecallable Operative Report DATE OF SURGERY: 09/16/18 PREOPERATIVE DIAGNOSIS: Large, symptomatic right inguinal scrotal hernia. POSTOPERATIVE DIAGNOSIS: Same as above OPERATION: Open right inguinal hernia repair with mesh, large plug and patch SURGEON: RAMSES RUBIO ANESTHESIA: LMAC TISSUE REMOVED OR ALTERED: Hernia sac COMPLICATIONS: None apparent ESTIMATED BLOOD LOSS: Minimal PROCEDURE: Drains/implants: Large Bard plug and a Bard patch. Procedure in detail: After informed consent was obtained, the patient was brought into the operating room and laid in the supine position. The area of the right groin, penis, and testicles were prepped and draped in a normal sterile fashion. An incision was created between the ASIS and pubic tubercle. Dissection was carried through the subcutaneous tissues using Bovie electrocautery. The external oblique aponeurosis was identified and incised using a 15 blade scalpel. The cord structures and hernia were brought into view. The cord structures and hernia were elevated away from the pubic tubercle and a [place]atha drain was used for retraction purposes, placed beneath the cord structures. Next dissection of the hernia sac was undertaken. The hernia sac was freed from the cord structures. There was a large lipoma of the cord that was dissected away. The hernia sac extended into the scrotum. The hernia sac was freed from the cord structures, taking great care not to injure the cord structures. After this was completed, the hernia sac was ligated at its base and divided. Next, a large Bard plug was used to fill the large defect in the floor of the inguinal canal. It was sutured to the surrounding tissues using 0 Prolene suture in interrupted circumferential fashion. Next, the Bard patch was brought onto the field. It was sutured to the pubic tubercle x2. The 0 Prolene suture that was used at the pubic tubercle was then run circumferentially superiorly and inferiorly. Superiorly it was sewn to the muscular portion of the internal oblique. Inferiorly it was sewn to Poupart's ligament. The cord was placed through the keyhole. The keyhole was sutured shut to a size that would admit the tip of a pinky finger. Once this was completed, hemostasis was achieved. The external oblique aponeurosis was closed over the internal inguinal ring with 3-0 Vicryl suture. The fatty soft tissues were closed using 3-0 Vicryl suture in simple running fashion. The overlying skin was closed using 4-0 Vicryl Rapide suture in subcuticular fashion. A dressing was placed, and the procedure was concluded. All sponge, instrument, and needle counts were correct x2. Condition: Stable.
== END 2018-09-16 18:45 | disposition home or self-care (01) ==
LOC: OROUT 08:54
PROVIDERS: ATTEND Surgery
DX: K40.90 Unilateral inguinal hernia, without obstruction or gangrene, not specified as recurrent (principal); I12.9 Hypertensive chronic kidney disease with stage 1 through stage 4 chronic kidney disease, or unspecified chronic kidney disease; N18.9 Chronic kidney disease, unspecified; I48.91 Unspecified atrial fibrillation; Z87.891 Personal history of nicotine dependence; Z79.899 Other long term (current) drug therapy; Z79.82 Long term (current) use of aspirin; I25.10 Atherosclerotic heart disease of native coronary artery without angina pectoris
CPT/HCPCS: 49505; C1781; A9270; J0690; J3010; J3490 ×3; J2370; J7060; J7050; J2704; J1741; 830

== ENCOUNTER 2019-12-10 09:30 | Day surgery (SDC) | payer MEDICARE, MEDICAID ==
[~2019-12-10 09:30] MED LIST changes: -ACETAMINOPHEN 325 MG TABLET PO PRN; -CEFAZOLIN SODIUM 2 GM in DEXTROSE 5%-WATER 100 ML IV PRN; -IBUPROFEN 800 MG in NORMAL SALINE 250 ML IV PRN; +KETOROLAC TROMETHAMINE 0.45% 4 DROP/0.4 ML DROPERETTE OS PRN
[2019-12-10] MEDS: TROPICAMIDE 1% OPH SOLN 15 ML OS PRN ×3 (09:38→10:05)
[2019-12-10] MEDS: CYCLOPENTOLATE 0.2%/PHENYLEPHRINE 1% OPH SOLN 2 ML OS PRN ×3 (09:38→10:05)
[2019-12-10] MEDS: BESIFLOXACIN HCL 0.6% OPH SUSP 5 ML BOTTLE OS PRN ×4 (09:38→10:44)
[2019-12-10] MEDS: TETRACAINE HCL 0.5% OPH SOLN 4 ML OS PRN ×4 (09:38→10:23)
[2019-12-10] MEDS ORDERED: MIDAZOLAM 2 MG/2 ML INJ ONE (10:05)
[2019-12-10] MEDS ORDERED: FENTANYL CITRATE INJ/PF 100 MCG/2 ML AMPUL ONE (10:05)
[2019-12-10] MEDS ORDERED: HYALURONIDASE INJ 150 UNIT/1 ML VIAL ONE (10:09)
[2019-12-10] MEDS ORDERED: BUPIVACAINE HCL 0.75% INJ/PF (7.5 MG/1 ML) 10 ML SDV ONE (10:09)
[2019-12-10] MEDS ORDERED: TOBRAMYCIN SULFATE/DEXAMETH OPH OINTMENT 3.5 GM ONE (10:09)
[2019-12-10] MEDS ORDERED: LIDOCAINE 2% INJ-PF (20 MG/ML) 10 ML AMPUL ONE ×2 (10:09→10:20)
[2019-12-10] MEDS ORDERED: LIDOCAINE 1% INJ-PF (10 MG/ML) 30 ML SDV ONE (10:13)
[2019-12-10] MEDS ORDERED: PROPOFOL INJ 200 MG/20 ML VIAL IV ONE (10:20)
[2019-12-10] MEDS: EPINEPHRINE INJ/PF 1 MG/1 ML AMPULE ONE ×2 (10:33)
[2019-12-10] MEDS: LIDOCAINE 1%/PHENYLEPHRINE 1.5% 1 ML VIAL ONE ×2 (10:33)
[2019-12-10] MEDS: CHONDR SU A NA/HYALUR INTRAOC KIT (SURGICARE) ONE ×2 (10:33)
[2019-12-10] MEDS: PREDNISOLONE ACETATE 1% OPH SUSP 5 ML OS PRN ×2 (10:44)
[2019-12-10] MEDS: DORZOLAMIDE HCL 2%/TIMOLOL MALEAT 0.5% OPH SOLN 10 ML OS PRN ×2 (10:44)
--- NOTE | 2019-12-10 12:12 | Operative Report ---
Operative Report-[facility] Operative Report: DATE OF SURGERY: 12/10/2019 PREOPERATIVE DIAGNOSIS: Cataracts, left eye POSTOPERATIVE DIAGNOSIS: Cataract, left eye OPERATION: Cataract extraction with insertion of an IOL of the left eye. Intraocular Lens Model: [22.5 diopter SN 60 WF] Patient underwent surgery for difficulty watching the television SURGEON: Matheus Munoz MD ANESTHESIA: Topical PROCEDURE: After obtaining appropriate consent, the patient's left eye was prepped and draped in a sterile fashion as well as the surgeon in the sterile manner and cataract surgery was started. First a paracentesis blade was used to make a side-port incision. Viscoelastic was used to inflate the anterior chamber. Next a 2.4 mm incision was made with a 2.4 mm blade, clear corneal temporarily. A continuous capsulorrhexis was made using a cystotome and Utrata forceps. Following this hydrodissection was carried out to make the lens fully loose and mobile and it was rotated 90 degrees. Following this, a divide and conquer technique was used to phacoemulsify the lens. The remaining cortex was removed with an irrigation/aspiration. Provisc was instilled into the capsular bag to inflate the bag.The intraocular lens was placed. The remaining viscoelastic material was removed with irrigation/aspiration. Following this, the incision was found to be watertight. Besivance and Cosopt was instilled into the eye and a protective shield was placed over the eye. The patient was returned to the postoperative recovery in a stable condition.
== END 2019-12-10 11:16 ==
LOC: SC 09:30
PROVIDERS: ATTEND Internal Medicine
DX: H25.812 Combined forms of age-related cataract, left eye (principal); H57.03 Miosis; H35.363 Drusen (degenerative) of macula, bilateral; H43.813 Vitreous degeneration, bilateral; Z79.82 Long term (current) use of aspirin; E78.00 Pure hypercholesterolemia, unspecified; I12.9 Hypertensive chronic kidney disease with stage 1 through stage 4 chronic kidney disease, or unspecified chronic kidney disease; N18.30 Chronic kidney disease, stage 3 unspecified; F03.90 Unspecified dementia, unspecified severity, without behavioral disturbance, psychotic disturbance, mood disturbance, and anxiety
CPT/HCPCS: 66984; V2632; J2250; J3490 ×4; A9270; J0171; J3010; J2704; 142; J3470

== ENCOUNTER 2019-12-29 08:33 | Day surgery (SDC) | payer MEDICARE, MEDICAID ==
[~2019-12-29 08:33] MED LIST changes: +BESIFLOXACIN HCL 0.6% OPH SUSP 5 ML BOTTLE OD PRN; +CHONDR SU A NA/HYALUR INTRAOC KIT (SURGICARE) ONE; +DORZOLAMIDE HCL 2%/TIMOLOL MALEAT 0.5% OPH SOLN 10 ML OD PRN; +EPINEPHRINE INJ/PF 1 MG/1 ML AMPULE ONE; +KETOROLAC TROMETHAMINE 0.45% 4 DROP/0.4 ML DROPERETTE OD PRN; -KETOROLAC TROMETHAMINE 0.45% 4 DROP/0.4 ML DROPERETTE OS PRN; +LIDOCAINE 1%/PHENYLEPHRINE 1.5% 1 ML VIAL ONE; +PREDNISOLONE ACETATE 1% OPH SUSP 5 ML OD PRN; +TETRACAINE HCL 0.5% OPH SOLN 4 ML OD PRN
[2019-12-29] MEDS ORDERED: FENTANYL CITRATE INJ/PF 100 MCG/2 ML AMPUL ONE (10:46)
[2019-12-29] MEDS ORDERED: ONDANSETRON HCL INJ/PF 4 MG/2 ML SDV ONE (10:46)
[2019-12-29] MEDS ORDERED: MIDAZOLAM 2 MG/2 ML INJ ONE (10:46)
[2019-12-29] MEDS: TROPICAMIDE 1% OPH SOLN 15 ML OD PRN ×2 (11:34→11:38)
[2019-12-29] MEDS: CYCLOPENTOLATE 0.2%/PHENYLEPHRINE 1% OPH SOLN 2 ML OD PRN ×2 (11:35→11:38)
== END 2019-12-29 11:53 | disposition home or self-care (01) ==
LOC: SC 08:33
PROVIDERS: ATTEND Internal Medicine
DX: Z53.9 Procedure and treatment not carried out, unspecified reason (principal)
CPT/HCPCS: A9270; J3490; J0171; J2250; J2405; J3010

== ENCOUNTER 2020-01-07 08:19 | Day surgery (SDC) | payer MEDICARE, MEDICAID ==
[~2020-01-07 08:19] MED LIST changes: -BESIFLOXACIN HCL 0.6% OPH SUSP 5 ML BOTTLE OD PRN; +LACTATED RINGERS 1000 ML IV PRN; +LIDOCAINE 0.5% INJ-PF (5 MG/ML) 50 ML SDV SUBCUT PRN; +LIDOCAINE 3.5% OPH GEL/PF 1 ML/TUBE OD PRN; +MIDAZOLAM 2 MG/2 ML INJ ONE; +MIDAZOLAM HCL SYRUP 10 MG/5 ML UDC PO PRN; -TETRACAINE HCL 0.5% OPH SOLN 4 ML OD PRN
[2020-01-07] MEDS ORDERED: MIDAZOLAM HCL SYRUP 10 MG/5 ML UDC ONE (08:34)
[2020-01-07] MEDS: TROPICAMIDE 1% OPH SOLN 15 ML OD PRN ×3 (08:58→09:25)
[2020-01-07] MEDS: TETRACAINE HCL 0.5% OPH SOLN 4 ML OD PRN ×3 (08:58→11:21)
[2020-01-07] MEDS: BESIFLOXACIN HCL 0.6% OPH SUSP 5 ML BOTTLE OD PRN ×3 (08:59→11:41)
[2020-01-07] MEDS: CYCLOPENTOLATE 0.2%/PHENYLEPHRINE 1% OPH SOLN 2 ML OD PRN ×3 (08:59→09:25)
--- NOTE | 2020-01-07 11:51 | Operative Report ---
Operative Report-[facility] Operative Report: DATE OF SURGERY: 01/07/2020 PREOPERATIVE DIAGNOSIS: Cataract, right eye POSTOPERATIVE DIAGNOSIS: Cataract, right eye OPERATION: Cataract extraction with insertion of an IOL of the right eye. Intraocular Lens Model: [22.5 SN 60 WF] Underwent surgery for difficulty seeing small print SURGEON: Matheus Munoz MD ANESTHESIA: Topical PROCEDURE: After obtaining appropriate consent, the patient's right eye was prepped and draped in a sterile fashion as well as the surgeon in the sterile manner and cataract surgery was started. First a paracentesis blade was used to make a side-port incision. Viscoelastic was used to inflate the anterior chamber. Next a 2.4 mm incision was made with a 2.4 mm blade, clear corneal temporarily. A continuous capsulorrhexis was made using a cystotome and Utrata forceps. Following this hydrodissection was carried out to make the patrick fully loose and mobile and it was rotated. Following this, a divide and conquer technique was used to phacoemulsify the patrick. The remaining cortex was removed with an irrigation/aspiration. Provisc was instilled into the capsular bag to in flate the bag. The intraocular lens was placed. The remaining viscoelastic material was removed with irrigation/aspiration. Following this, the incision was found to be watertight. Besivance and Cosopt was instilled into the eye and a protective shield was placed over the eye. The patient was reurned to the postoperative recovery in a stable condition.
[2020-01-07] MEDS ORDERED: CHONDR SU A NA/HYALUR SOD 0.5 ML DISP.SYRIN ONE (11:55)
--- OUTSIDE RECORDS SUMMARY | 2020-01-08 15:04 | XMS REPORT ---
:1935 [facility] [address] [place] [id number] Care Team Providers Name Role Phone Khadijahmackniurka, A Primary Care Physician Unavailable Allergies, Adverse Reactions, Alerts This patient has no known allergies or adverse reactions. Medications Ordered Filled Start Stop Current Ordering Indication Dosage Frequency Signature Comments Components Medication Medication Date Date Medication? Clinician (SIG) Name Name Megestrol Yes BID 1 tablet Acetate 40 3-03 Orally MG 00:00: Twice a 00 day Flagyl 500 No TID 1 tablet MG 2-17 -27 Orally 00:00: 00:00 Three 00 :00 times a day Ensure - Yes 237 mL 7-23 Orally 2 00:00: cases/prince 00 h Cyanocobala Yes QD 1 tablet min 1000 Orally MCG Once a day Ferrous Yes QD 1 tablet Sulfate 325 Orally (65 Fe) MG Once a day Aspirin 81 Yes QD 1 tablet MG Orally Once a day Fluticasone Yes QD 1 spray in Propionate each 50 MCG/ACT nostril Nasally Once a day Zyrtec Yes QD 1 tablet Allergy 10 Orally MG Once a day Namzaric Yes QD 1 capsule 28-10 MG Orally Once a day Problems Condition Condition Condition Status Onset Resolution Last Treatin g Comments Name Details Category Date Date Treatment Clinician Date Normal body Body mass Problem Active mass index index (BMI) 4-06 21.0-21.9, 00:00: adult 00 Clostridial Enterocolit Problem Active gastroenter is due to 06 itis Clostridium 00:00: difficile, 00 not specified as recurrent Anorexia Anorexia Problem Active 3-03 00:00: 00 Adult Encounter Problem Active health for general 1-22 examination adult 00:00: medical 00 examination without abnormal findings Chronic Hypertensiv Problem Active 2018-02 kidney e chronic 2-11 disease due kidney 00:00: to disease 00 hypertensio with stage n 1 through stage 4 chronic kidney disease, or unspecified chronic kidney disease Individual Encounter Problem Active 2018-02 psychiatric for general 2-11 examination psychiatric 00:00: examination 00 , requested by authority Vaccination Encounter Problem Active given for 11-20 immunizatio 00:00: n 00 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 00:00: 00 Normal body Body mass Problem Active mass index index (BMI) 8-18 20.0-20.9, 00:00: adult 00 Abdominal Abdominal Problem Active aortic aortic 3-30 aneurysm aneurysm, 00:00: without without 00 rupture rupture Atrial Unspecified Problem Active fibrillatio atrial 3-30 n fibrillatio 00:00: n 00 Malignant Malignant Problem Active neoplasm of neoplasm of 3-30 colon colon, 00:00: unspecified 00 Inguinal Unilateral Problem Active hernia inguinal 3-30 hernia, 00:00: without 00 obstruction or gangrene, not specified as recurrent Dementia Dementia in Problem Active 2017-02 other 0-11 diseases 00:00: classified 00 elsewhere without behavioral disturbance Chronic Chronic Problem Active kidney kidney 10-31 disease disease, 00:00: stage 3 stage 3 00 (moderate) 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, 00:00: so stated 00 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 00 Anterograde Anterograde Problem Active amnesia amnesia 8-28 00:00: 00 Essential Essential Problem Active hypertensio (primary) 8-28 n hypertensio 00:00: n 00 Procedures Procedure Date / Time Performed Performing Clinician Devic e ADMN FLU VAC NO FEE SCHED SAME DAY 2018-11-20 00:00:00 FLU VAC NO PRSV 4 ARACELIS 3 YRS+ 2018-11-20 00:00:00 Results Test Description Test Time Test Comments Text Results Atomic Results Result Comments CBC + AUTOMATED DIFF 2019-07-29 00:00:00 Test Item Value Reference Range Comments WBC (test code = WBC) 6.8 4.2-11.8 RBC (test code = RBC) 5.12 4.4-5.8 HEMOGLOBIN (test code = HEMOGLOBIN) 12.3 13.1-17.1 HEMATOCRIT (test code = HEMATOCRIT) 39 40-50.4 MCV (test code = MCV) 76 80.8-97.4 MCH (test code = MCH) 23.9 26.6-33.0 MCHC (test code = MCHC) 31.5 32-34.9 RDW (test code = RDW) 15.8 11.8-15.5 PLATELET (test code = PLATELET) 174 147-365 MPV (test code = MPV) 10.20 6.00-12.00 SEGMENTED% (test code = SEGMENTED%) 46.0 43.7-73.5 SEGMENTED# (test code = SEGMENTED#) 3.1 1.9-7.5 LYMPHOCYTES% (test code = LYMPHOCYTES%) 37.90 17.9-45. 1 LYMPHOCYTES# (test code = LYMPHOCYTES#) 2.6 1-4 MONOCYTES% (test code = MONOCYTES%) 9.2 3.8-10 MONOCYTES# (test code = MONOCYTES#) 0.6 0.2-0.9 EOSINOPHILS% (test code = EOSINOPHILS%) 5.90 0.0-6.1 EOSINOPHILS# (test code = EOSINOPHILS#) 0.40 0.0-0.5 BASOPHILS% (test code = BASOPHILS%) 1.00 0.0-0.9 BASOPHILS# (test code = BASOPHILS#) 0.10 0.0-0.1 CEA(NON SMOKER)2019-07-29 00:00:00 Test Item Value Reference Range Comments CEA(NONSMOKER) (test code = CEA(NONSMOKER)) 2.1 0.0- 3.8 [facility] [id number] 00:00:00 Test Item Value Reference Range Comments SODIUM (test code = SODIUM) 142 136-145 POTASSIUM (test code = POTASSIUM) 4.4 3.5-5.1 CHLORIDE (test code = CHLORIDE) 100 98-107 CARBONDIOXIDE (test code = CARBONDIOXIDE) 31.0 17-32 GLUCOSE (test code = GLUCOSE) 92 70-99 BUN (test code = BUN) 24 7-25 CREATININESERUM (test code = CREATININESERUM) 1.46 0. 7-1.3 BUN/CREATININERATIO (test code = BUN/CREATININERATIO) 16 8-28 BILIRUBIN,Total (test code = BILIRUBIN,Total) 0.3 0. 2-1.0 CALCIUM (test code = CALCIUM) 10.5 8.6-10.5 PROTEINTOTAL (test code = PROTEINTOTAL) 7.6 6.6-8.2 ALBUMIN (test code = ALBUMIN) 4.1 3.5-5.7 ALK.PHOSPHATASE (test code = ALK.PHOSPHATASE) 74 34 -104 ALT(SGPT) (test code = ALT(SGPT)) 11 7-52 AST(SGOT) (test code = AST(SGOT)) 23 11-39 GLOBULIN (test code = GLOBULIN) 3.5 1.8-4.0 A/GRATIO (test code = A/GRATIO) 1.2 0.8-2.7 GLOMERULARFILT.RATE (test code = GLOMERULARFILT.RATE) 49 >60 [id number] 00:00:00 Test Item Value Reference Range Comments FERRITIN (test code = FERRITIN) 842.5 23.9-336.2 [id number] 00:00:00 Test Item Value Reference Range Comments PHOSPHORUS (test code = PHOSPHORUS) 3.1 2.5-5.0 PROTEIN/CREAT RATIO [id number] 00:00:00 Test Item Value Reference Range Comments HoursCollected (test code = HoursCollected) Random TotalVolume (test code = TotalVolume) Random Creatinine,Urine-pervolume (test code = 180 Creatinine,Urine-pervolume) Creatinine,Urine-per24h (test code = Not Applicable 600-2000 Creatinine,Urine-per24h) TotalProtein,Urine-pervolume (test code = 13 TotalProtein,Urine-pervolume) Uklpd25YmtsFvvmxsy (test code = Not Applicable 40-150 Laiid45LfuxEfswnkz) UrineTotalProtein/CreatinineRatio (test code 72 15- 68 = UrineTotalProtein/CreatinineRatio) URIC [id number] 00:00:00 Test Item Value Reference Range Comments URICACID (test code = URICACID) 6.4 4.4-7.6 [id number] 00:00:00 Test Item Value Reference Range Comments COLOR (test code = COLOR) YELLOW YELLOW CLARITY (test code = CLARITY) CLEAR CLEAR SPECIFICGRAVITY (test code = SPECIFICGRAVITY) 1.020 1. 005-1.025 pH (test code = pH) 7.0 5.0-8.5 URINEPROTEIN (test code = URINEPROTEIN) NEGATIVE NEGATIVE URINEGLUCOSE (test code = URINEGLUCOSE) NEGATIVE NEGATIVE URINEKETONE (test code = URINEKETONE) NEGATIVE NEGATIVE URINEBILIRUBIN (test code = URINEBILIRUBIN) NEGATIVE NEGA TIVE URINEBLOOD (test code = URINEBLOOD) NEGATIVE NEGATIVE URINENITRITE (test code = URINENITRITE) NEGATIVE NEGATIVE UROBILINOGEN (test code = UROBILINOGEN) 0.2 0.2-1.0 LEUKOCYTE (test code = LEUKOCYTE) NEGATIVE NEGATIVE *PleaseNote: (test code = *PleaseNote:) VITAMIN D-25 [id number] 00:00:00 Test Item Value Reference Range Comments VITAMIND-25HYDROXY (test code = VITAMIND-25HYDROXY) 41.9 30-100 IRON + TIBC + UIBC + [id number] 00:00:00 Test Item Value Reference Range Comments IRON (test code = IRON) 54 50-175 TIBC (test code = TIBC) 248 205-512 UIBC (test code = UIBC) 194 155-300 SATURATION% (test code = SATURATION%) 22 20-55 PTH [id number] 00:00:00 Test Item Value Reference Range Comments PTHINTACT (test code = PTHINTACT) 28 12.0-88.0 TSH + FREE [id number] 00:00:00 Test Item Value Reference Range Comments [id number] (test code = [id number]) 2.178 0.340-4.410 FREET4 (test code = FREET4) 1.01 0.61-1.12 LAB [id number] 00:00:00 Test Item Value Reference Range Comments PDF (test code = PDF) LAB PROTEIN/CREAT RATIO [id number] 00:00:00 Test Item Value Reference Range Comments HoursCollected (test code = HoursCollected) Random TotalVolume (test code = TotalVolume) Random Creatinine,Urine-pervolume (test code = 228 Creatinine,Urine-pervolume) Creatinine,Urine-per24h (test code = Not Applicable 600-2000 Creatinine,Urine-per24h) TotalProtein,Urine-pervolume (test code = 17 TotalProtein,Urine-pervolume) Uppfe69GxrjGtcpysf (test code = Not Applicable 40-150 Oxmni00EydaTbqkddd) UrineTotalProtein/CreatinineRatio (test code 75 15- 68 = UrineTotalProtein/CreatinineRatio) [id number] 00:00:00 Test Item Value Reference Range Comments COLOR (test code = COLOR) YELLOW YELLOW CLARITY (test code = CLARITY) CLEAR CLEAR SPECIFICGRAVITY (test code = SPECIFICGRAVITY) 1.020 1. 005-1.025 pH (test code = pH) 6.0 5.0-8.5 URINEPROTEIN (test code = URINEPROTEIN) NEGATIVE NEGATIVE URINEGLUCOSE (test code = URINEGLUCOSE) NEGATIVE NEGATIVE URINEKETONE (test code = URINEKETONE) NEGATIVE NEGATIVE URINEBILIRUBIN (test code = URINEBILIRUBIN) NEGATIVE NEGA TIVE URINEBLOOD (test code = URINEBLOOD) NEGATIVE NEGATIVE URINENITRITE (test code = URINENITRITE) NEGATIVE NEGATIVE UROBILINOGEN (test code = UROBILINOGEN) 0.2 0.2-1.0 LEUKOCYTE (test code = LEUKOCYTE) NEGATIVE NEGATIVE *PleaseNote: (test code = *PleaseNote:) LAB [id number] 00:00:00 Test Item Value Reference Range Comments PDF (test code = PDF) LAB STOOL FOR [id number] 00:00:00 Test Item Value Reference Range Comments STOOL FOR WBC (test code = STOOL FOR WBC) NO WBCs SEEN STOOL CULTURE+GRAM STAIN(WBC)2019-04-13 00:00:00 Test Item Value Reference Range Comments STOOL CULTURE (test code = NEGATIVE FOR SHIGA TOXINS 1 2. STOOL CULTURE) CLOSTRIDIODES [id number] 00:00:00 Test Item Value Reference Range Comments C DIFFICILE GDH (test code = C DIFFICILE GDH) NEGATIVE NE GATIVE C DIFFICILE TOXINS A B (test code = C DIFFICILE NEGATIVE NEGATIVE TOXINS A B) CBC + AUTOMATED [id number] 00:00:00 Test Item Value Reference Range Comments WBC (test code = WBC) 6.2 4.2-11.8 RBC (test code = RBC) 4.88 4.4-5.8 HEMOGLOBIN (test code = HEMOGLOBIN) 11.6 13.1-17.1 HEMATOCRIT (test code = HEMATOCRIT) 38 40-50.4 MCV (test code = MCV) 78 80.8-97.4 MCH (test code = MCH) 23.7 26.6-33.0 MCHC (test code = MCHC) 30.2 32-34.9 RDW (test code = RDW) 16.1 11.8-15.5 PLATELET (test code = PLATELET) 189 147-365 MPV (test code = MPV) 8.71 6.00-12.00 SEGMENTED% (test code = SEGMENTED%) 51.9 43.7-73.5 SEGMENTED# (test code = SEGMENTED#) 3.2 1.9-7.5 LYMPHOCYTES% (test code = LYMPHOCYTES%) 35.10 17.9-45. 1 LYMPHOCYTES# (test code = LYMPHOCYTES#) 2.2 1-4 MONOCYTES% (test code = MONOCYTES%) 7.2 3.8-10 MONOCYTES# (test code = MONOCYTES#) 0.4 0.2-0.9 EOSINOPHILS% (test code = EOSINOPHILS%) 5.41 0.0-6.1 EOSINOPHILS# (test code = EOSINOPHILS#) 0.34 0.0-0.5 BASOPHILS% (test code = BASOPHILS%) 0.42 0.0-0.9 BASOPHILS# (test code = BASOPHILS#) 0.03 0.0-0.1 [facility] [id number] 00:00:00 Test Item Value Reference Range Comments SODIUM (test code = SODIUM) 143 136-145 POTASSIUM (test code = POTASSIUM) 4.6 3.5-5.1 CHLORIDE (test code = CHLORIDE) 102 98-107 CARBONDIOXIDE (test code = CARBONDIOXIDE) 28.0 17-32 GLUCOSE (test code = GLUCOSE) 109 70-99 BUN (test code = BUN) 25 7-25 CREATININESERUM (test code = CREATININESERUM) 1.60 0. 7-1.3 BUN/CREATININERATIO (test code = BUN/CREATININERATIO) 16 8-28 BILIRUBIN,Total (test code = BILIRUBIN,Total) 0.5 0. 2-1.0 CALCIUM (test code = CALCIUM) 10.0 8.6-10.5 PROTEINTOTAL (test code = PROTEINTOTAL) 7.8 6.6-8.2 ALBUMIN (test code = ALBUMIN) 4.1 3.5-5.7 ALK.PHOSPHATASE (test code = ALK.PHOSPHATASE) 55 34 -104 ALT(SGPT) (test code = ALT(SGPT)) 16 7-52 AST(SGOT) (test code = AST(SGOT)) 25 11-39 GLOBULIN (test code = GLOBULIN) 3.7 1.8-4.0 A/GRATIO (test code = A/GRATIO) 1.1 0.8-2.7 GLOMERULARFILT.RATE (test code = GLOMERULARFILT.RATE) 44 >60 [id number] 00:00:00 Test Item Value Reference Range Comments FERRITIN (test code = FERRITIN) 713.0 23.9-336.2 PROTEIN/CREAT RATIO [id number] 00:00:00 Test Item Value Reference Range Comments HoursCollected (test code = HoursCollected) Random TotalVolume (test code = TotalVolume) Random Creatinine,Urine-pervolume (test code = 226 Creatinine,Urine-pervolume) Creatinine,Urine-per24h (test code = Not Applicable 600-2000 Creatinine,Urine-per24h) TotalProtein,Urine-pervolume (test code = 22 TotalProtein,Urine-pervolume) Vulen97OjmwFbbjnlr (test code = Not Applicable 40-150 Atrto38MihkJajjvkl) UrineTotalProtein/CreatinineRatio (test code 97 15- 68 = UrineTotalProtein/CreatinineRatio) URIC [id number] 00:00:00 Test Item Value Reference Range Comments URICACID (test code = URICACID) 7.0 4.4-7.6 [id number] 00:00:00 Test Item Value Reference Range Comments COLOR (test code = COLOR) MARCIO YELLOW CLARITY (test code = CLARITY) CLOUDY CLEAR SPECIFICGRAVITY (test code = SPECIFICGRAVITY) 1.017 1. 005-1.025 pH (test code = pH) 6.0 5.0-8.5 URINEPROTEIN (test code = URINEPROTEIN) NEGATIVE NEGATIVE URINEGLUCOSE (test code = URINEGLUCOSE) NEGATIVE NEGATIVE URINEKETONE (test code = URINEKETONE) NEGATIVE NEGATIVE URINEBILIRUBIN (test code = URINEBILIRUBIN) NEGATIVE NEGA TIVE URINEBLOOD (test code = URINEBLOOD) NEGATIVE NEGATIVE URINENITRITE (test code = URINENITRITE) NEGATIVE NEGATIVE UROBILINOGEN (test code = UROBILINOGEN) 0.2 0.2-1.0 LEUKOCYTE (test code = LEUKOCYTE) MODERATE NEGATIVE BACTERIA (test code = BACTERIA) OCCASIONAL NONE-OCC MUCOUS (test code = MUCOUS) OCCASIONAL NONE-OCC WHITEBLOODCELLS (test code = WHITEBLOODCELLS) >100 0- 5 VITAMIN D-25 [id number] 00:00:00 Test Item Value Reference Range Comments VITAMIND-25HYDROXY (test code = VITAMIND-25HYDROXY) 37.5 30-100 IRON + TIBC + UIBC + [id number] 00:00:00 Test Item Value Reference Range Comments IRON (test code = IRON) 71 50-175 TIBC (test code = TIBC) 273 205-512 UIBC (test code = UIBC) 202 155-300 SATURATION% (test code = SATURATION%) 26 20-55 PTH [id number] 00:00:00 Test Item Value Reference Range Comments PTHINTACT (test code = PTHINTACT) 35 12.0-88.0 HYALINE [id number] 00:00:00 Test Item Value Reference Range Comments HYALINECASTS (test code = HYALINECASTS) 6 0-1 TSH + FREE [id number] 00:00:00 Test Item Value Reference Range Comments [id number] (test code = [id number]) 0.882 0.340-4.410 FREET4 (test code = FREET4) 0.87 0.61-1.12 LAB [id number] 00:00:00 Test Item Value Reference Range Comments PDF (test code = PDF) LAB Assessments Condition Name Status Diagnosis Date Treating Clinici an - Essential (primary) hypertension I10 Active [facility], [place] - Chronic kidney disease, stage 3 Active [facility], [place] (moderate) N18.3 - Malignant neoplasm of colon, unspecified Active [facility], [place] C18.9 - Anorexia R63.0 Active [facility]oh, [place] - Essential (primary) hypertension I10 Active [facility], [place] - Chronic kidney disease, stage 3 Active [facility]oh, [place] (moderate) N18.3 - Dementia in other diseases classified Active [facility], [place] elsewhere without behavioral disturbance F02.80 - Anorexia R63.0 Active [facility]oboh, [place] - Enterocolitis due to Clostridium Active [facility], [place] difficile, not specified as recurrent A04.72 - Body mass index (BMI) 21.0-21.9, adult Active [facility]oh, [place] Z68.21 - Chronic kidney disease, stage 3 Active [facility], [place] (moderate) N18.3 - Encounter for general adult medical Active [facility], [place] examination without abnormal findings Z00.00 - Essential (primary) hypertension I10 Active [facility], [place] - Hypertensive chronic kidney disease with Active [facility]oh, [place] stage 1 through stage 4 chronic kidney disease, or unspecified chronic kidney disease I12.9 - Dementia in other diseases classified Active [facility], [place] elsewhere without behavioral disturbance F02.80 - Encounter for immunization Z23 Active [facility], [place] - 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 Active [place], [place] - Radiculopathy, lumbar region M54.16 Active [facility], [place] - Unilateral inguinal hernia, without Active [place], [place] obstruction or gangrene, not specified as recurrent K40.90 - Chronic kidney disease, stage 3 Active [facility], [place] (moderate) N18.3 - Essential (primary) hypertension I10 Active [place]oh, [place] - Body mass index (BMI) 20.0-20.9, adult Active [place], [place] Z68.20 - Malignant neoplasm of colon, unspecified Active [facility], [place] C18.9 - Essential (primary) hypertension I10 Active [facility], [place] - Chronic kidney disease, stage 3 Active [facility], [place] (moderate) N18.3 - Abdominal aortic aneurysm, without Active [facility]oh, [place] rupture I71.4 - Malignant neoplasm of colon, unspecified Active [facility], [place] C18.9 - Essential (primary) hypertension I10 Active [facility], [place] - Chronic kidney disease, stage 3 Active [facility], [place] (moderate) N18.3 - Abdominal aortic aneurysm, without Active [place], [place] rupture I71.4 - Malignant neoplasm of colon, unspecified Active [facility]oh, [place] C18.9 - Essential (primary) hypertension I10 Active [facility], [place] - Chronic kidney disease, stage 3 Active [facility], [place] (moderate) N18.3 - Abdominal aortic aneurysm, without Active [facility], [place] rupture I71.4 - Hypertensive chronic kidney disease with Active [facility]oh, [place] stage 1 through stage 4 chronic kidney disease, or unspecified chronic kidney disease I12.9 - Unspecified dementia without behavioral Active [facility], [place] disturbance F03.90 - Chronic kidney disease, stage 3 Active [facility], [place] (moderate) N18.3 - Anemia in chronic kidney disease D63.1 Active [facility], [place] - Thoracic aortic aneurysm, without rupture Active [facility], [place] I71.2 - Unilateral inguinal hernia, without Active [place], [place] obstruction or gangrene, not specified as recurrent K40.90 - Testicular pain, unspecified N50.819 Active [facility], [place] - Essential (primary) hypertension I10 Active [facility], [place] - Chronic kidney disease, stage 3 Active [facility], [place] (moderate) N18.3 - Dementia in other diseases classified Active [facility], [place] elsewhere without behavioral disturbance F02.80 - Chronic kidney disease, stage 3 Active [facility], [place] (moderate) N18.3 - Dementia in other diseases classified Active [facility], [place] elsewhere without behavioral disturbance F02.80 - Alzheimer's disease with early onset Active [facility], [place] G30.0 - Chronic kidney disease, stage 3 Active [facility], [place] (moderate) N18.3 - Mild cognitive impairment, so stated Active [facility], [place] 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 Active [facility]oh, [place] - Essential (primary) hypertension I10 Active [facility], [place] - 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 Active [facility]oh, [place] - Chronic kidney disease, stage 3 Active [facility], [place] (moderate) N18.3 Encounters Start End Encounter Admission Attending Care Care Encounter Date/Time Date/Time Type Type Clinicians Facility Department ID 2019-10-29 2019-10-29 [facility] [id number] 00:00:00 00:00:00 PA PA 2019-07-29 2019-07-29 [facility] [id number] 00:00:00 00:00:00 PA 2019-05-06 2019-05-06 [facility] [id number] 00:00:00 00:00:00 PA PA 2019-04-28 2019-04-28 [facility] [id number] 00:00:00 00:00:00 PA PA 2019-04-13 2019-04-13 [facility] [id number] 00:00:00 00:00:00 PA PA 2019-02-04 2019-02-04 [facility] [id number] 00:00:00 00:00:00 PA PA 2019-01-29 2019-01-29 [facility] [id number] 00:00:00 00:00:00 PA 2019-01-02 2019-01-02 [facility] [id number] 00:00:00 00:00:00 PA PA 2019-01-02 2019-01-02 [facility] [id number] 00:00:00 00:00:00 PA PA 2018-11-20 2018-11-20 [facility] 30 [id number] 00:00:00 00:00:00 PA PA 2018-09-16 2018-09-16 [facility] 30 [id number] 00:00:00 00:00:00 PA PA 2018-09-15 2018-09-15 [facility] 30 [id number] 00:00:00 00:00:00 PA PA 2018-08-12 2018-08-12 [facility] 29 [id number] 00:00:00 00:00:00 PA PA 2018-07-07 2018-07-07 [facility] [id number] 00:00:00 00:00:00 PA PA 2018-06-17 2018-06-17 [facility] [id number] 00:00:00 00:00:00 PA PA 2018-06-11 2018-06-11 [facility] [id number] 00:00:00 00:00:00 PA PA 2018-06-01 2018-06-01 [facility] [id number] 00:00:00 00:00:00 Nursing Longterm Home 2018-05-18 2018-05-18 [facility] [id number] 00:00:00 00:00:00 Nursing Longterm Home 2018-04-21 2018-04-21 [facility] 28 [id number] 00:00:00 00:00:00 PA PA 2018-04-08 2018-04-08 [facility] 28 [id number] 00:00:00 00:00:00 PA PA 2018-04-03 2018-04-03 [facility] 28 [id number] 00:00:00 00:00:00 PA PA 2018-03-31 2018-03-31 [facility] 28 [id number] 00:00:00 00:00:00 PA PA 2018-03-25 2018-03-25 [facility] 28 [id number] 00:00:00 00:00:00 PA PA 2018-03-25 2018-03-25 [facility] 28 [id number] 00:00:00 00:00:00 PA PA 2018-02-27 2018-02-27 [facility] 28 [id number] 00:00:00 00:00:00 PA PA 2018-02-12 2018-02-12 [facility] 28 [id number] 00:00:00 00:00:00 PA PA 2018-02-04 2018-02-04 [facility] 26 [id number] 00:00:00 00:00:00 PA PA 2018-01-30 2018-01-30 [facility] 28 [id number] 00:00:00 00:00:00 PA PA 2018-01-30 2018-01-30 [facility] 28 [id number] 00:00:00 00:00:00 PA PA 2018-01-22 2018-01-22 [facility] 28 [id number] 00:00:00 00:00:00 PA PA 2018-01-13 2018-01-13 [facility] 28 [id number] 00:00:00 00:00:00 PA PA 2017-12-05 2017-12-05 [facility] 26 [id number] 00:00:00 00:00:00 PA PA 2017-10-31 2017-10-31 [facility] 26 [id number] 00:00:00 00:00:00 PA PA 2017-10-22 2017-10-22 [facility] 26 [id number] 00:00:00 00:00:00 PA PA Immunizations Ordered Immunization Filled Immunization Date Status Commen ts Refusal Reason Name Name kvng Quadrivalent 2018-11-20 Completed 11:11:00 Social History This patient has no known social history. Vital Signs Vital Name Observation Time Observation Value Comments height 2019-07-29 09:00:00 67.5 [in_us] weight 2019-07-29 09:00:00 134.4 [lb_av] bmi 2019-07-29 09:00:00 20.74 kg/m2 heart rate 2019-07-29 09:00:00 64 /min blood pressure systolic 2019-07-29 09:00:00 112 mm[Hg] blood pressure diastolic 2019-07-29 09:00:00 73 mm[Hg] blood pressure diastolic 2019-04-28 09:00:00 66 mm[Hg] height 2019-04-28 09:00:00 67.5 [in_us] weight 2019-04-28 09:00:00 143.6 [lb_av] bmi 2019-04-28 09:00:00 22.16 kg/m2 heart rate 2019-04-28 09:00:00 63 /min blood pressure systolic 2019-04-28 09:00:00 99 mm[Hg] height 2019-04-13 13:00:00 67.5 [in_us] weight 2019-04-13 13:00:00 140.0 [lb_av] bmi 2019-04-13 13:00:00 21.60 kg/m2 heart rate 2019-04-13 13:00:00 80 /min blood pressure systolic 2019-04-13 13:00:00 96 mm[Hg] blood pressure diastolic 2019-04-13 13:00:00 68 mm[Hg] height 2018-11-20 09:45:00 67.5 [in_us] weight 2018-11-20 09:45:00 141.0 [lb_av] bmi 2018-11-20 09:45:00 21.76 kg/m2 heart rate 2018-11-20 09:45:00 56 /min blood pressure systolic 2018-11-20 09:45:00 92 mm[Hg] blood pressure diastolic 2018-11-20 09:45:00 59 mm[Hg] height 2018-08-12 09:15:00 67.5 [in_us] weight 2018-08-12 09:15:00 133.0 [lb_av] bmi 2018-08-12 09:15:00 20.52 kg/m2 heart rate 2018-08-12 09:15:00 62 /min blood pressure systolic 2018-08-12 09:15:00 131 mm[Hg] blood pressure diastolic 2018-08-12 09:15:00 77 mm[Hg]
== END 2020-01-07 12:30 | disposition home or self-care (01) ==
LOC: SC 08:19
PROVIDERS: ATTEND Internal Medicine
DX: H25.811 Combined forms of age-related cataract, right eye (principal); H57.03 Miosis; Z96.1 Presence of intraocular lens; Z79.82 Long term (current) use of aspirin; E78.00 Pure hypercholesterolemia, unspecified; F03.90 Unspecified dementia, unspecified severity, without behavioral disturbance, psychotic disturbance, mood disturbance, and anxiety; I12.9 Hypertensive chronic kidney disease with stage 1 through stage 4 chronic kidney disease, or unspecified chronic kidney disease; N18.30 Chronic kidney disease, stage 3 unspecified
CPT/HCPCS: 66984; V2632; J2250; J3490 ×3; A9270 ×2; J0171